=== PATIENT | female | born 1965 ===

== ENCOUNTER → 2020-11-12 08:40 | Outpatient (BNVA) | payer OTHER, SELFPAY | PROVIDERS: PCP Internal Medicine; Visit Provider Dietitian, Registered | DX: E66.9 Obesity, unspecified (principal) | CPT/HCPCS: 97802 ==

== ENCOUNTER 2022-01-21 11:56 | Outpatient (REF) | payer MEDICAID, SELFPAY ==
--- NOTE | ~2022-01-21 | MM_ITS ---
EXAMINATION: MM SCREENING DIGITAL BREAST TOMOSYNTHESIS, BILATERAL CLINICAL INFORMATION: Screening. Asymptomatic. The lifetime risk of breast cancer based on the Tyrer-Cuzick Model is 6%. COMPARISON: Outside mammography: 08/23/2017, 07/28/2016 ([place]). TECHNIQUE: Digital breast tomosynthesis is performed in both the craniocaudal and mediolateral oblique views along with computer-aided detection (CAD). Synthesized 2D images are generated from the tomosynthesis. FINDINGS: There are scattered areas of fibroglandular density (ACR BI-RADS breast composition Category b). Breast tissue composition borders on predominantly fatty. Background stromal markings are stable. There is no developing density or interval mass or architectural abnormality. No abnormal calcifications. The axilla and skin contours are unremarkable. MM/MM tomosynthesis screening BI IMPRESSION: No mammographic evidence of malignancy. ASSESSMENT: BI-RADS 1: Negative RECOMMENDATION: Routine annual mammography screening. This patient's information was entered into a reminder system with a target due date for their next mammogram.
== END 2022-01-21 11:57 | disposition home or self-care (01) ==
LOC: HO.MAMMO 11:56
PROVIDERS: PCP Family Medicine; Visit Provider Family Medicine
DX: Z12.31 Encounter for screening mammogram for malignant neoplasm of breast (principal)
CPT/HCPCS: 77063; 77067

== ENCOUNTER 2023-05-25 08:29 | Outpatient (REF) | payer MEDICAID, SELFPAY ==
[2023-05-25 14:34] LABS: Cholesterol 148 mg/dL (<200); HDL Cholesterol 40 mg/dL (>40); LDL Cholesterol Calculated 56 mg/dL (<100); Triglycerides 261 mg/dL (<150)
== END 2023-05-25 08:30 | disposition home or self-care (01) ==
LOC: HO.CHCLDS 08:29
PROVIDERS: Visit Provider Family Medicine
DX: E78.1 Pure hyperglyceridemia (principal)
CPT/HCPCS: 36415; 80061

== ENCOUNTER 2023-09-08 17:34 | Outpatient (REF) | payer MEDICAID, SELFPAY | END 2023-09-08 17:35 | disposition home or self-care (01) | LOC: HO.HHCLNP 17:34 | PROVIDERS: Visit Provider Emergency Medicine | DX: R30.9 Painful micturition, unspecified (principal) | CPT/HCPCS: 87086 ==

== ENCOUNTER 2023-09-22 10:05 | Outpatient (REF) | payer MEDICAID, SELFPAY ==
[2023-09-22 14:30] LABS: MANUAL DIFF FLAG NO
[2023-09-22 14:36] LABS: Basophils Percent Auto 0.6 % (0-2); Eosinophils Absolute Auto 0.1 X10*3/uL (0.0-0.4); Eosinophils Percent Auto 1.7 % (0-4); Hematocrit 38.2 % (37.0-47.0); Hemoglobin 12.5 g/dl (12.0-16.0); Imm Gran Abs Auto 0.01 X10*3/uL (0.00-0.03); Imm Gran Pct Auto 0.2 % (0.0-0.4); Lymphocytes Absolute Auto 2.6 X10*3/uL (1.2-4.9); Lymphocytes Percent Auto 55.1 % (20-40); Mean Corpuscular HGB Conc 32.7 g/dl (31.0-35.0); Mean Corpuscular Hemoglobin 30.5 pg (27.0-33.0); Mean Corpuscular Volume 93.2 fL (80.0-98.0); Mean Platelet Volume 9.9 fL (9.4-12.3); Monocytes Absolute Auto 0.2 X10*3/uL (0.1-1.2); Monocytes Percent Auto 5.2 % (2-11); Neutrophils Absolute Auto 1.7 x10*3/uL (2.0-8.3); Neutrophils Percent Auto 37.2 % (45-73); Platelet Count 281 X10*3/uL (160-400); Red Cell Distribution Width 12.5 % (11.0-16.0); White Blood Count 4.6 X10*3/uL (4.8-10.8)
[2023-09-22 14:58] LABS: Alanine Aminotransferase 31 U/L (0-31); Albumin Level 4.1 g/dL (3.5-5.0); Alkaline Phosphatase 80 U/L (39-117); Anion Gap 9 (12-20); Aspartate Amino Transferase 30 U/L (5-31); Bilirubin Total 0.2 mg/dL (0.0-1.0); Blood Urea Nitrogen 8 mg/dL (9-16); Calcium 9.3 mg/dL (8.4-10.2); Carbon Dioxide 25 mmol/L (22-29); Chloride 111 mmol/L (96-108); Cholesterol 119 mg/dL (<200); Estimated Glomerular Filt Rate > 60; Glucose Random 96 mg/dL (60-115); HDL Cholesterol 45 mg/dL (>40); LDL Cholesterol Calculated 54 mg/dL (<100); Potassium 3.6 mmol/L (3.3-5.1); Sodium 141 mmol/L (135-145); Total Protein 6.8 g/dL (6.5-8.0); Triglycerides 103 mg/dL (<150)
[2023-09-22 15:17] LABS: TSH reflex Free T4 2.71 uIU/mL (0.32-4.0); Vitamin D 25-OH Total 27.7 ng/mL (>30)
[2023-09-22 15:26] LABS: Folate 8.6 ng/mL (> or = 4.0); Vitamin B12 345 pg/mL (200-900)
[2023-09-26 15:33] LABS: Vitamin B6 13.8 ng/mL (2.1-21.7)
== END 2023-09-22 10:06 | disposition home or self-care (01) ==
LOC: HO.CHCLDS 10:05
PROVIDERS: Visit Provider Family Medicine
DX: R20.0 Anesthesia of skin (principal); R20.2 Paresthesia of skin; E78.49 Other hyperlipidemia
CPT/HCPCS: 36415; 80053; 80061; 82306; 82607; 82746; 84207; 84443; 85025

== ENCOUNTER 2023-09-28 07:41 | Outpatient (REF) | payer MEDICAID, SELFPAY ==
--- NOTE | 2023-09-28 07:48 | EMG_ITS ---
Bilateral tibial and peroneal motor studies were performed. Bilateral superficial peroneal, sural, and medial and lateral plantar sensory studies were performed and tibial H reflexes were obtained. Paraspinal muscles were tested with a needle. IMPRESSION: 1. 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 2. Underlying mild axonal sensory motor peripheral neuropathy. MD PILY Aleman/FEMI / [id number]
== END 2023-09-28 07:42 | disposition home or self-care (01) ==
LOC: HO.NEURO 07:41
PROVIDERS: PCP Family Medicine; Visit Provider Family Medicine
DX: R20.0 Anesthesia of skin (principal); R20.2 Paresthesia of skin
CPT/HCPCS: 95886; 95913

== ENCOUNTER 2024-02-16 08:51 | Outpatient (AMB) | payer MEDICAID, SELFPAY ==
--- NOTE | 2024-02-16 09:01 | MHC.OFFVIS ---
Vital Signs 02/16/24 09:03 Height 4 ft 10 in Weight 128 lb BMI 26.7 BP 109/69 Blood Pressure Location Lt brachial Position Sitting Pulse 70 Pulse Source Pulse Oximeter Pulse Oximetry (%) 99 Oxygen Delivery Method Room Air Intake Visit Reasons: Protrusion of intervertebral disc of lumbar Allergies NSAIDS (Non-Steroidal Anti-Inflamma Adverse Reaction (Mild, Verified 02/16/24 09:13) Unknown Sulfa (Sulfonamide Antibiotics) Adverse Reaction (Mild, Verified 02/16/24 09:13) rash sulfacetamide Adverse Reaction (Mild, Verified 02/16/24 09:13) Unknown sulfadiazine Adverse Reaction (Mild, Verified 02/16/24 09:13) Unknown Medication List - Last Reconciled 02/16/24 by Ginny Ha acetaminophen ER (Pain Relief (acetaminophen)) 650 mg PO Q8H baclofen 10 mg PO TID buspirone 15 mg PO BID glfgoaetfk-iupmwjtfatfdg-lufu 50-325-40 mg 2 caps PO Q4-6H PRN cetirizine (All Day Allergy (cetirizine)) 10 mg PO DAILY PRN cholecalciferol (vitamin D3) 50 mcg PO DAILY diphenhydramine HCl (Allergy (diphenhydramine)) 25 mg PO BEDTIME PRN docusate sodium 100 mg PO BID ezetimibe 10 mg PO DAILY fluticasone propionate 50 mcg/actuation (Allergy Relief (fluticasone)) 1 spray intranasal BID gabapentin 300 mg PO BEDTIME hydroxyzine HCl 50 mg PO BEDTIME lidocaine 5% 1 patch topical DAILY meclizine 25 mg PO BID PRN mirabegron ER (Myrbetriq) 50 mg PO DAILY omeprazole 20 mg PO DAILY polyethylene glycol 3350 17 grams PO DAILY rosuvastatin 40 mg PO DAILY rotigotine (Neupro) 2 mg transdermal DAILY semaglutide (weight loss) (Wegovy) 2.4 mg subcut QWEEK sennosides (senna) 8.6 mg PO DAILY sertraline 100 mg PO DAILY sertraline 25 mg PO DAILY sumatriptan succinate 100 mg PO Q2-4H PRN topiramate XR 100 mg PO DAILY trazodone 100 mg PO DAILY verapamil 40 mg PO DAILY HPI Comments Details: Celia is a very pleasant 59-year-old female who presents the office today for evaluation management of her chronic lower back pain. Patient reports that for approximately 7 years she has been suffering with midline lower back pain without radiation down either lower extremity With a past one-week she has developed acute pain over the right PSIS with radiation into the thigh She has been taking gabapentin, baclofen and using lidocaine patches without improvement of her pain Previously underwent injections to her lower back for years ago, these provided some relief for a short time. 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 Most recent MRI was 2020, results are not available for review. States she was told there is a protrusion of disc at L5 Denies recent attempts at physical therapy Denies red flag symptoms including new loss of bowel, bladder or saddle anesthesia She reports worse pain is the right lower back pain over PSIS, worse with walking, standing, sitting Pain today is rated as 8/10, constant In terms of muscle damage condition is described as stabbing, aching Pain is negatively impacting patient's enjoyment of life, general activity, sleep, ability to care for self inability function normally. Denies current use of anticoagulants Denies implantable devices, pacemaker defibrillator Denies nicotine, tobacco, alcohol or illicit substance use Review of Systems Const All systems reviewed & are unremarkable except as noted in HPI and below Physical Exam Vital Signs: Last Vital Signs Pulse 70 02/16/24 09:03 BP 109/69 02/16/24 09:03 Pulse Ox 99 02/16/24 09:03 Oxygen Delivery Method Room Air 02/16/24 09:03 BMI result Body Mass Index 26.7 General: awake, alert, oriented. Answers questions appropriately. Fully engaged in examination. Skin: warm, dry, intact HEENT: Normocephalic. Hearing intact. Cardiac: External chest normal in appearance. Respiratory: No cough, audible wheezing or stridor. Abdomen: without gross distension. MS: No obvious swelling or deformities. Able to stand on bilateral tiptoes and bilateral heels.? Able to transition from sit to stand unassisted. Ambulates with bilaterally normal heel strike and toe off Bilateral lower extremity strength 5/5 Tenderness over right PSIS Tenderness over midline lumbar vertebrae and lumbar paraspinal muscles SLR negative bilaterally [place] positive on the right Thigh thrust positive on the right SI compression positive on the right Facet loading positive Negative footdrop, negative clonus Neurological: Oriented to person, place, time and situation. Thought process intact. Ambulates with the use of a cane. Psychiatric: Appropriate mood and affect. Good judgment and insight. Assessment & Plan Assessment & Plan (1) Sacroiliac joint dysfunction of right side: Code(s): M53.3 - Sacrococcygeal disorders, not elsewhere classified Category: Medical (2) Lumbar spondylosis: Code(s): M47.816 - Spondylosis without myelopathy or radiculopathy, lumbar region Category: Medical Plan Celia is a very pleasant 59-year-old female who presented to the office today for evaluation management of her chronic lower back pain History, physical exam and provocative testing consistent with right sacroiliac joint dysfunction and axial lumbar back pain X-ray sacroiliac joint ordered for evaluation X-ray lumbar spine ordered for evaluation Order placed for PT eval and treat Patient fitted for SIJ belt, advised on use. Discontinue baclofen. New Rx for methocarbamol 500 mg p.o. t.i.d. as needed. Patient advised on cautions for use All questions and concerns were answered, patient agrees with the plan. Follow up after PT, sooner if needed Orders: Orders XR sacroiliac joint min 3V Today M53.3 - Sacrococcygeal disorders, not elsewhere classified PT Evaluation and Treatment Today M47.816 - Spondylosis without myelopathy or radiculopathy, lumbar region, M53.3 - Sacrococcygeal disorders, not elsewhere classified XR lumbar spine 4V min Today M47.816 - Spondylosis without myelopathy or radiculopathy, lumbar region Medications: New methocarbamol Discontinue use of baclofen No driving while taking this medication. 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
[2024-02-16 09:03] VITALS: BP 109/69; PULSE 70; O2SAT 99; BMI 26.7
== END 2024-02-16 09:40 | disposition home or self-care (01) ==
PROVIDERS: PCP Family Medicine; Referring Provider Pediatrics; Visit Provider Registered Nurse Emergency
DX: M53.3 Sacrococcygeal disorders, not elsewhere classified (principal); M47.816 Spondylosis without myelopathy or radiculopathy, lumbar region
CPT/HCPCS: 99204

== ENCOUNTER 2024-02-16 08:51 | Outpatient (REF) | payer MEDICAID, SELFPAY ==
--- NOTE | ~2024-02-16 | XR_ITS ---
EXAMINATION: XR LUMBOSACRAL SPINE WITH OBLIQUES CLINICAL INFORMATION: Lumbar radiculopathy. COMPARISON: None available. TECHNIQUE: AP, both oblique, and lateral views of the lumbar spine. Lateral view of the lumbosacral junction. FINDINGS: There are 5 nonrib-bearing lumbar vertebral bodies. There is slight leftward curvature of the lumbar spine. Sagittal alignment is maintained. Vertebral body heights are preserved. Mild intervertebral disc narrowing at L5-S1. No spondylolysis. Facet hypertrophy at L5-S1. Sacroiliac joints are intact. XR/XR lumbar spine 4V min IMPRESSION: Mild degenerative disc disease at L5-S1.
== END 2024-02-16 08:52 | disposition home or self-care (01) ==
LOC: HO.XRAY 08:51
PROVIDERS: PCP Family Medicine; Visit Provider Registered Nurse Emergency
DX: M47.816 Spondylosis without myelopathy or radiculopathy, lumbar region (principal)
CPT/HCPCS: 72110; 99212

== ENCOUNTER 2024-03-06 11:51 | Emergency (ER) | payer MEDICAID, SELFPAY ==
[2024-03-06 11:53] VITALS: BP 108/76; PULSE 83; RESP 20; TEMP 36.3; O2SAT 99; BMI 26.7
--- NOTE | 2024-03-06 11:53 | ED_ITS ---
HPI - Back Pain/Injury General Chief Complaint: Back Pain/Injury Stated Complaint: back pain Time Seen by Provider: 03/06/24 12:04 Source: patient, family (), RN notes reviewed and old records reviewed Mode of arrival: ambulatory Limitations: no limitations History of Present Illness ED Provider: ALON TINOCO PA-C HPI Narrative: 59 year old female presents to the ED today for evaluation of acute on chronic low back pain x2 weeks. Reports pain to her mid lumbar back with radiation into bilateral thighs. Pain is exacerbated with sitting and ambulation. She states she has been unable to find a comfortable position. Deniews new trauma or injury. She ambulates with cane at baseline. Patient reports chronic back pain x7 years, worsening acutely over the last 2 weeks. She had an appointment with pain management provider on 02/16/24 who diagnosed her with right SI joint dysfunction and axial lumbar back pain. XRs were ordered and taken however she has yet to receive these results. She was discharged with SIJ belt, physical therapy referral, was advised to discontinued her baclofen prescription, and was started on methocarbamol 500mg PO TID which she has been taking without much relief. She last took this medication around 10-11 oclock this morning. She tells me she had her first physical therapy appointment yesterday. She denies bowel/ bladder incontinence or retention, saddle anesthesia, numbness/tingling/weakness of the lower extremities, dysuria, hematuria, fever/chills. Denies history of spinal surgery. Denies hx of IV drug use. Related Data Home Medications ?Medication ?Instructions ?Recorded ?Confirmed acetaminophen 650 mg 650 mg PO Q8H 02/16/24 02/16/24 tablet,extended release (Pain Relief (acetaminophen)) buspirone 15 mg tablet 15 mg PO BID 02/16/24 02/16/24 cnwygtkogd-pfcfryyayjuhm-htgikrst 2 cap PO Q4-6H PRN 02/16/24 02/16/24 50 mg-325 mg-40 mg capsule cetirizine 10 mg tablet (All Day 10 mg PO DAILY PRN 02/16/24 02/16/24 Allergy (cetirizine)) cholecalciferol (vitamin D3) 50 50 mcg PO DAILY 02/16/24 02/16/24 mcg (2,000 unit) tablet diphenhydramine HCl 25 mg capsule 25 mg PO BEDTIME PRN 02/16/24 02/16/24 (Allergy (diphenhydramine)) docusate sodium 100 mg capsule 100 mg PO BID 02/16/24 02/16/24 ezetimibe 10 mg tablet 10 mg PO DAILY 02/16/24 02/16/24 fluticasone propionate 50 1 spray intranasal BID 02/16/24 02/16/24 mcg/actuation nasal spray,suspension (Allergy Relief (fluticasone)) gabapentin 300 mg capsule 300 mg PO BEDTIME 02/16/24 02/16/24 hydroxyzine HCl 50 mg tablet 50 mg PO BEDTIME 02/16/24 02/16/24 lidocaine 5 % topical patch 1 patch topical DAILY 02/16/24 02/16/24 meclizine 25 mg tablet 25 mg PO BID PRN 02/16/24 02/16/24 mirabegron 50 mg tablet,extended 50 mg PO DAILY 02/16/24 02/16/24 release 24 hr (Myrbetriq) omeprazole 20 mg capsule,delayed 20 mg PO DAILY 02/16/24 02/16/24 release polyethylene glycol 3350 17 17 g PO DAILY 02/16/24 02/16/24 gram/dose oral powder rosuvastatin 40 mg tablet 40 mg PO DAILY 02/16/24 02/16/24 rotigotine 2 mg/24 hour 2 mg transdermal DAILY 02/16/24 02/16/24 transdermal 24 hour patch (Neupro) semaglutide (weight loss) 2.4 2.4 mg subcut QWEEK 02/16/24 02/16/24 mg/0.75 mL subcutaneous pen injector (Radha) sennosides 8.6 mg capsule (senna) 8.6 mg PO DAILY 02/16/24 02/16/24 sertraline 100 mg tablet 100 mg PO DAILY 02/16/24 02/16/24 sertraline 25 mg tablet 25 mg PO DAILY 02/16/24 02/16/24 sumatriptan succinate 100 mg tablet 100 mg PO Q2-4H PRN 02/16/24 02/16/24 topiramate 100 mg capsule,extended 100 mg PO DAILY 02/16/24 02/16/24 release 24 hr trazodone 100 mg tablet 100 mg PO DAILY 02/16/24 02/16/24 verapamil 40 mg tablet 40 mg PO DAILY 02/16/24 02/16/24 Previous Rx's ?Medication ?Instructions ?Recorded methocarbamol 500 mg tablet 500 mg PO TID PRN muscle spasm #90 02/16/24 tabs morphine 15 mg immediate release 15 mg PO Q6H PRN pain (scale score 03/06/24 tablet 4-6) #8 tabs Allergies Allergy/AdvReac Type Severity Reaction Status Date / Time NSAIDS (Non-Steroidal AdvReac Mild Unknown Verified 03/06/24 11:56 Anti-Inflamma Sulfa (Sulfonamide AdvReac Mild rash Verified 03/06/24 11:56 Antibiotics) sulfacetamide AdvReac Mild Unknown Verified 03/06/24 11:56 sulfadiazine AdvReac Mild Unknown Verified 03/06/24 11:56 Review of Systems Review of Systems: Constitutional: No fever, chills, fatigue, night sweats, weight changes ENT/Mouth: No ear pain, hearing loss, nasal congestion, sinus pain, rhinorrhea, sore throat Eyes: No eye pain, swelling, redness, vision changes, discharge Cardio: No chest pain, palpitations, GAONA, orthopnea, peripheral edema Pulm: No SOB, cough, sputum, wheezing, dyspnea, hemoptysis GI: No nausea, vomiting, hematemesis, abdominal pain, diarrhea, constipation, hematochezia, melena : No irregular bleeding, dysuria, frequency, urgency, hesitancy, hematuria, flank pain, urinary flow changes, urinary incontinence or retention MSK: No neck pain, joint pain, myalgias, +back pain Skin: No lesions, rashes Neuro: No weakness, numbness, paresthesias, LOC, dizziness, headache Psych: No anxiety/panic, depression, SI/HI, AH/VH All other systems reviewed and are negative. [facility] Past Medical History Attestation statement: The following information was validated with the patient. Source: old records reviewed and nursing notes reviewed Social History Social History Advance Directives: No Advance Directives Information Provided: No Physical Exam Vital Signs: Vital Signs: Last Vital Signs Temp 97.3 F 03/06/24 11:53 Pulse 83 03/06/24 11:53 Resp 20 03/06/24 11:53 BP 108/76 03/06/24 11:53 Pulse Ox 99 03/06/24 11:53 O2 Del Method Room Air 03/06/24 11:53 BMI result Body Mass Index 26.7 Vital signs stable, afebrile Const: General: cooperative, healthy appearing, comfortable, no acute distress, alert, awake and Physically active Orientation/consciousness: patient oriented x3 HEENT: Head: Yes normal to inspection, Yes normocephalic and Yes atraumatic Eyes: General: appearance normal, both eyes and all related structures Pupils: Equal, round and reactive pupils present EOM: EOMs intact bilaterally Neck: Other: + no cervical midline spinous tenderness or step-off deformity. Neck: Yes normal visual inspection, Yes full ROM and Yes no meningeal signs Resp: Effort & Inspection: normal respiratory effort Auscultation: clear to auscultation bilaterally Cardio: Rate: regular rate Rhythm: regular rhythm GI: Inspection: Yes normal to inspection Palpation (GI): Soft to palpation and nontender : General: Yes no CVA tenderness Back/Spine/Pelvis: Other: + midline lumbar spinous tenderness with out palpable deformity, mass, fluctuance or crepitus. No step off deformity. Minimal left lumbar paraspinal muscle tenderness. No overlying cellulitic changes, ecchymoses. Back: no CVA tenderness Neuro: Other: Strength 5/5 intact throughout.? No saddle anesthesia.? Sensation intact to light touch.? Neurovascular intact distally.? 2+ patellar DTRs intact bilaterally. Ambulating with steady gait assisted by cane. General: patient oriented x3, gait normal and no meningeal signs Cranial nerves: Yes Equal, round and reactive pupils present Gait exam (Neuro): Normal gait present Course Course Course Narrative: This is a Rapid Medical Exam performed in triage by Nicole Reid PA-C. Full HPI, ROS and PE to be performed by primary ED provider. 59 year-old F w/ PMHx presenting to the ED c/o low back pain x1 month. Saw pain management on 02/16/24 for this back pain however states meds are not working. denies incontinence/retention , fever PE: ambulating w/steady gait. had Lumbar XR on 02/15 which have not yet been read by radiologist Plan: Pain management Reevaluation(s) Reevaluation #1: 9238-- xr lumbar spine showing degenerative disc disease at L5-S1. will discharg e patient with PO morphine as needed. advised to continue follow up w/ pain management and physical therapy. Patient has remained stable throughout ED visit today. Ambulating with steady gait. Discussed worrisome signs and symptoms and when to return to the ED. All questions answered at this time. Patient is agreeable with disposition and stable for discharge. Medications Administered Discontinued Medications Generic Name Dose Route Start Last Admin Trade Name Elver PRN Reason Stop Dose Admin Morphine Sulfate 15 mg 03/06/24 12:30 03/06/24 12:37 Morphine Sulfate Immed Release 15 Mg Tablet PO 03/06/24 12:31 15 mg ONCE ONE Administration Medical Decision Making Medical Decision Making MDM Narrative: 59 year old female presents to the ED today for evaluation of acute on chronic low back pain x2 weeks. Vital signs stable. Afebrile. She is nontoxic-appearing and in no acute distress. Sitting on the exam bed comfortably. On exam, there is midline lumbar spinous tenderness without palpable deformity, mass, f luctuance or crepitus. No step off deformity. Minimal left lumbar paraspinal muscle tenderness. No overlying cellulitic changes, ecchymoses. Sensation intact to light touch throughout. Strength 5/5 intact throughout. 2+ patellar DTRs intact bilaterally. Ambulating with steady gait assisted by cane. Differential diagnosis includes lumbar sprain/strain, sciatica, contusion, lumbar radiculopathy. Unlikely epidural abscess, cauda equina, Guillain-[place], cord compression. Will reach out to [facility] for imaging reads. Plan for pain control and re-evaluation. Differential Diagnosis Differential Diagnoses: The differential diagnosis associated with the presentation includes as above. Admission/Observation Not indicated. Independent Interpretation I performed an independent interpretation of an: Plain X-Ray Interpretation: XR lumbar spine obtained on 02/16/24 without acute fracture, agree with radiologist's interpretation. Radiology Impression Discussion of test interpretation with radiology: I have reviewed the radiologist's reading. Radiologist Impression: EXAMINATION: XR LUMBOSACRAL SPINE WITH OBLIQUES CLINICAL INFORMATION: Lumbar radiculopathy. COMPARISON: None available. TECHNIQUE: AP, both oblique, and lateral views of the lumbar spine. Lateral view of the lumbosacral junction. FINDINGS: There are 5 nonrib-bearing lumbar vertebral bodies. There is slight leftward curvature of the lumbar spine. Sagittal alignment is maintained. Vertebral body heights are preserved. Mild intervertebral disc narrowing at L5-S1. No spondylolysis. Facet hypertrophy at L5-S1. Sacroiliac joints are intact. XR/XR lumbar spine 4V min IMPRESSION: Mild degenerative disc disease at L5-S1. Independent Historian Clinical information obtained from an independent historian. History obtained f rom or confirmed by: Spouse () External Record Review External record reviewed: Inpatient record Prescription Management I considered prescription management with: Pain Medication (Morphine) Social Determinants Patient?s care significantly limited by Social Determinants of Health including: Other Social Determinant of Health Critical Care Time Critical Care Time Critical Care Time: No Discharge Plan Discharge Clinical Impression: Lumbar spondylosis Patient Disposition: Home, Self-Care Instructions: Lower Back Exercises (ED) Additional Instructions: The xray of your lumbar spine taken on 02/16/24 shows degenerative disc disease from L5-S1. No acute fracture. Morphine has been sent to your pharmacy for you to take as needed for the next couple of days. Please continue following up with pain management and physical therapy as you require more definitive treatment to treat the underlying cause. Return with new or worsening symptoms In the case of an emergency call 911. Prescriptions: New morphine 15 mg tablet 15 mg PO Q6H PRN (Reason: pain (scale score 4-6)) Qty: 8 0RF Rx Instructions: Partial Fill upon patient request. No Action gabapentin 300 mg capsule 300 mg PO BEDTIME docusate sodium 100 mg capsule 100 mg PO BID acetaminophen [Pain Relief (acetaminophen)] 650 mg tablet extended release 650 mg PO Q8H cetirizine [All Day Allergy (cetirizine)] 10 mg tablet 10 mg PO DAILY PRN fluticasone propionate [Allergy Relief (fluticasone)] 50 mcg/actuation spray,suspension 1 spray intranasal BID Rx Instructions: administer into each nostril rosuvastatin 40 mg tablet 40 mg PO DAILY hydroxyzine HCl 50 mg tablet 50 mg PO BEDTIME ezetimibe 10 mg tablet 10 mg PO DAILY nimaxplqxy-xcjneuqpzhagx-mxdj 50-325-40 mg capsule 2 cap PO Q4-6H PRN Rx Instructions: do not exceed 6 tabs per 24 hrs polyethylene glycol 3350 17 gram/dose powder 17 g PO DAILY meclizine 25 mg tablet 25 mg PO BID PRN sumatriptan succinate 100 mg tablet 100 mg PO Q2-4H PRN Rx Instructions: do not exceed 2 doses per 24 hrs sertraline 100 mg tablet 100 mg PO DAILY Neupro 2 mg/24 hour patch 24 hour 2 mg transdermal DAILY senna 8.6 mg capsule 8.6 mg PO DAILY omeprazole 20 mg capsule,delayed release(DR/EC) 20 mg PO DAILY topiramate 100 mg capsule,extended release 24hr 100 mg PO DAILY verapamil 40 mg tablet 40 mg PO DAILY buspirone 15 mg tablet 15 mg PO BID sertraline 25 mg tablet 25 mg PO DAILY diphenhydramine HCl [Allergy (diphenhydramine)] 25 mg capsule 25 mg PO BEDTIME PRN trazodone 100 mg tablet 100 mg PO DAILY mirabegron [Myrbetriq] 50 mg tablet extended release 24 hr 50 mg PO DAILY cholecalciferol (vitamin D3) 50 mcg (2,000 unit) tablet 50 mcg PO DAILY Wegovy 2.4 mg/0.75 mL pen injector 2.4 mg subcut QWEEK lidocaine 5 % adhesive patch,medicated 1 patch topical DAILY methocarbamol 500 mg tablet 500 mg PO TID PRN (Reason: muscle spasm) Qty: 90 1RF Rx Instructions: Discontinue use of baclofen No driving while taking this medication. 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
[2024-03-06] MEDS: Morphine Sulfate Immed Release 15 MG TABLET PO (12:37)
[2024-03-06 15:11] VITALS: BP 103/60; PULSE 71; RESP 13; TEMP 36.6
[2024-03-06 15:17] VITALS: BP 103/60; PULSE 71; RESP 13; TEMP 36.6
== END 2024-03-06 15:17 | disposition home or self-care (01) ==
PROVIDERS: Emergency Provider Emergency Medicine; PCP Family Medicine
DX: M47.816 Spondylosis without myelopathy or radiculopathy, lumbar region (principal); Z79.899 Other long term (current) drug therapy
CPT/HCPCS: 99283; 99284

== ENCOUNTER 2024-03-19 08:47 | Outpatient (AMB) | payer MEDICAID, SELFPAY ==
[2024-03-19 09:03] VITALS: BP 114/65; PULSE 71; O2SAT 98; BMI 26.7
--- NOTE | 2024-03-19 09:03 | A.OFFVIS_ITS ---
Vital Signs 03/19/24 09:03 Height 4 ft 10 in Weight 128 lb BMI 26.7 BP 114/65 Blood Pressure Location Lt brachial Position Sitting Pulse 71 Pulse Source Pulse Oximeter Pulse Oximetry (%) 98 Oxygen Delivery Method Room Air Intake Visit Reasons: Back pain increasing Allergies NSAIDS (Non-Steroidal Anti-Inflamma Adverse Reaction (Mild, Verified 03/19/24 09:04) Unknown Sulfa (Sulfonamide Antibiotics) Adverse Reaction (Mild, Verified 03/19/24 09:04) rash sulfacetamide Adverse Reaction (Mild, Verified 03/19/24 09:04) Unknown sulfadiazine Adverse Reaction (Mild, Verified 03/19/24 09:04) Unknown Medication List - Last Reconciled 03/19/24 by Ginny Ha acetaminophen ER (Pain Relief (acetaminophen)) 650 mg PO Q8H buspirone 15 mg PO BID ijzgdqdzax-xzgtrjdzkshfj-ksbs 50-325-40 mg 2 caps PO Q4-6H PRN cetirizine (All Day Allergy (cetirizine)) 10 mg PO DAILY PRN cholecalciferol (vitamin D3) 50 mcg PO DAILY diphenhydramine HCl (Allergy (diphenhydramine)) 25 mg PO BEDTIME PRN docusate sodium 100 mg PO BID ezetimibe 10 mg PO DAILY fluticasone propionate 50 mcg/actuation (Allergy Relief (fluticasone)) 1 spray intranasal BID gabapentin 300 mg PO BEDTIME hydroxyzine HCl 50 mg PO BEDTIME lidocaine 5% 1 patch topical DAILY meclizine 25 mg PO BID PRN methocarbamol 500 mg PO TID PRN mirabegron ER (Myrbetriq) 50 mg PO DAILY morphine 15 mg PO Q6H PRN omeprazole 20 mg PO DAILY polyethylene glycol 3350 17 grams PO DAILY rosuvastatin 40 mg PO DAILY rotigotine (Neupro) 2 mg transdermal DAILY semaglutide (weight loss) (Wegovy) 2.4 mg subcut QWEEK sennosides (senna) 8.6 mg PO DAILY sertraline 100 mg PO DAILY sertraline 25 mg PO DAILY sumatriptan succinate 100 mg PO Q2-4H PRN topiramate XR 100 mg PO DAILY tramadol 50 mg PO Q6H PRN trazodone 100 mg PO DAILY verapamil 40 mg PO DAILY HPI Comments Details: Patient presented to the office today, accompanied by her daughter, for follow- up lower back pain Recent x-ray reviewed with patient and her daughter, results as per below. She was recently evaluated in the emergency room for worsening lower back pain. They discharged her with oral morphine, this has been discontinued. Her primary care provider then prescribed her tramadol. She has been taking this without improvement of her pain. Currently attending physical therapy, she finds that this worsens her pain. Using the sacroiliac joint belt with minimal improvement. Today would like to focus on her axial back pain and wait to treat sacroiliac joint pain. Denies red flag symptoms including new loss of bowel, bladder or saddle anesthesia. Prior: Celia is a very pleasant 59-year-old female who presents the office today for evaluation management of her chronic lower back pain. Patient reports that for approximately 7 years she has been suffering with midline lower back pain without radiation down either lower extremity With a past one-week she has developed acute pain over the right PSIS with radiation into the thigh She has been taking gabapentin, baclofen and using lidocaine patches without improvement of her pain Previously underwent injections to her lower back for years ago, these provided some relief for a short time. 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 Most recent MRI was 2020, results are not available for review. States she was told there is a protrusion of disc at L5 Denies recent attempts at physical therapy Denies red flag symptoms including new loss of bowel, bladder or saddle anesthesia She reports worse pain is the right lower back pain over PSIS, worse with walking, standing, sitting Pain today is rated as 8/10, constant In terms of muscle damage condition is described as stabbing, aching Pain is negatively impacting patient's enjoyment of life, general activity, sleep, ability to care for self inability function normally. Denies current use of anticoagulants Denies implantable devices, pacemaker defibrillator Denies nicotine, tobacco, alcohol or illicit substance use Review of Systems Const All systems reviewed & are unremarkable except as noted in HPI and below Physical Exam Vital Signs: Last Vital Signs Pulse 71 03/19/24 09:03 BP 114/65 03/19/24 09:03 Pulse Ox 98 03/19/24 09:03 Oxygen Delivery Method Room Air 03/19/24 09:03 BMI result Body Mass Index 26.7 General: awake, alert, oriented. Answers questions appropriately. Fully engaged in examination. Skin: warm, dry, intact HEENT: Normocephalic. Hearing intact. Cardiac: External chest normal in appearance. Respiratory: No cough, audible wheezing or stridor. Abdomen: without gross distension. MS: No obvious swelling or deformities. Able to stand on bilateral tiptoes and bilateral heels.? Able to transition from sit to stand unassisted. Ambulates with bilaterally normal heel strike and toe off Bilateral lower extremity strength 5/5 Tenderness over midline lumbar vertebrae and lumbar paraspinal muscles SLR negative bilaterally Facet loading positive Negative footdrop, negative clonus Neurological: Oriented to person, place, time and situation. Thought process intact. Psychiatric: Appropriate mood and affect. Good judgment and insight. Results Reviewed Results Reviewed: 02/16/2024: XR/XR lumbar spine 4V min FINDINGS: There are 5 nonrib-bearing lumbar vertebral bodies. There is slight leftward curvature of the lumbar spine. Sagittal alignment is maintained. Vertebral body heights are preserved. Mild intervertebral disc narrowing at L5-S1. No spondylolysis. Facet hypertrophy at L5-S1. Sacroiliac joints are intact. IMPRESSION: Mild degenerative disc disease at L5-S1. Assessment & Plan Assessment & Plan (1) Sacroiliac joint dysfunction of right side: Code(s): M53.3 - Sacrococcygeal disorders, not elsewhere classified Category: Medical (2) Lumbar spondylosis: Code(s): M47.816 - Spondylosis without myelopathy or radiculopathy, lumbar region Category: Medical Plan Celia is a very pleasant 59-year-old female who presented to the office today for follow-up lower back pain History, physical exam and provocative testing consistent with right sacroiliac joint dysfunction and axial lumbar back pain. Today she would like to focus on her axial back pain. Patient has exhausted conservative therapy including PT, muscle relaxers, heat, ice. She is unable to take nonsteroidal anti-inflammatory medications due to history of Duane Lucien syndrome Will schedule for fluoroscopy guided bilateral diagnostic L3-L4 DR L5 medial branch blocks with local anesthetic. Continue with methocarbamol 500 mg p.o. t.i.d. as needed. Patient advised on cautions for use All questions and concerns were answered, patient agrees with the plan. Follow up after injection, sooner if needed Coding Level of Care Code Est Pt Level 3 (02518) Diagnoses Sacroiliac joint dysfunction of right side M53.3 Lumbar spondylosis M47.816
== END 2024-03-19 09:49 | disposition home or self-care (01) ==
PROVIDERS: PCP Family Medicine; Visit Provider Registered Nurse Emergency
DX: M53.3 Sacrococcygeal disorders, not elsewhere classified (principal); M47.816 Spondylosis without myelopathy or radiculopathy, lumbar region
CPT/HCPCS: 99213

== ENCOUNTER → 2024-03-19 08:47 | Outpatient (BNVA) | payer MEDICAID, SELFPAY | PROVIDERS: PCP Family Medicine; Visit Provider Registered Nurse Emergency | DX: M47.816 Spondylosis without myelopathy or radiculopathy, lumbar region (principal) | CPT/HCPCS: 99212 ==

== ENCOUNTER 2024-03-25 11:00 | Outpatient (RCR) | payer MEDICAID, SELFPAY ==
--- NOTE | 2024-03-05 10:42 | MHC.PT.EP ---
[facility] [place] Office [place] Office [place] Office [address] David Oliva [address] [phone] F: [phone] F: [phone] F: [phone] F: [phone] Physical Therapy Plan of Care Date of Evaluation: 03/05/24 Date of Surgery: n/a Diagnosis: R SI joint dysfunction Assessment: Patient is a 59 year old female presenting to PT with complaints of pain in her low back. Pt reports onset of pain began a few years ago due to insidious onset. She presents today with impairments in pain, lumbar ROM, core strength, hip strength, tenderness to palpation. Pt's current occupation is none, with baseline physical activities including ADLs. 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 Clinical presentation today is most consistent with signs and sx associated with low back pain and pt will benefit from skilled PT 2 week x 4 weeks to address the following problems and impairments noted upon evaluation: pain, lumbar ROM, core strength, hip strength, tenderness to palpation. These problems limit the patient with the following functional activities: ADLs, stair negotiation. The prescribed treatment plan of care is medically necessary. Co-morbidities of none were identified and taken into considerations of plan of care. Pt was educated on HEP, role of PT, prognosis, POC. Frequency and Duration: The patient will be seen 2 x week x 4 weeks Short Term Goals: Pt will report centralization of sx in 2 weeks. Pt will demonstrate improved hip MMT strength by 1/3 grade in 2 weeks for improved lumbopelvic stability. Pt will demonstrate improved lumbar ROM in available range with min to no pain in 2 weeks. 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 Pt will demonstrate ability to negotiate stairs with min to no pain in 4 weeks for improved access to her home. Treatment Plan: Modalities to reduce pain, spasms and effusion. Manual therapy to restore motion and function. Therapeutic exercise to improve strength and flexibility. Neuromuscular re-education for posture and balance. Therapeutic activities to return to functional activities of daily living. Electronically signed by: Tata Hassan, PT, DPT, ATC Please sign and return to therapist. Thank you for your referral.
--- NOTE | 2024-03-25 11:23 | MHC.PT.DC ---
[facility] [place] Office [place] [facility] [place] [facility] [address] David Oliva [address] [phone] F: [phone] F: [phone] F: [phone] F: [phone] Physical Therapy Discharge Report Diagnosis: R SI joint dysfunction Date of Surgery: n/a Date of Evaluation: 03/05/24 Date of Discharge: 03/25/24 Treatments to Date: 3 Cancellations to Date: 1 No Shows to Date: 0 Discharge Status: Patient Elected to Stop Recommend MD Follow-up Discharge Summary: 03/25/2024: She states PT is not helping her. She saw pain management who is going to be giving her injections. She is stating she would like to stop PT at this point which I feel is reasonable due to her reporting it is not helping her. She also does not want to participate in exercises when she attends her appointments so it is also not appropriate to continue for that reason as well. She will be d/c and should continue to follow up with her referring provider. Electronically signed by: Tata Hassan, PT, DPT, ATC Please sign and return to therapist. Thank you for your referral.
== END 2024-03-25 11:23 | disposition home or self-care (01) ==
LOC: HO.PTCHIC 11:00
PROVIDERS: PCP Family Medicine; Visit Provider Registered Nurse Emergency
DX: M53.3 Sacrococcygeal disorders, not elsewhere classified (principal); M47.816 Spondylosis without myelopathy or radiculopathy, lumbar region
CPT/HCPCS: 97110; 97161

== ENCOUNTER 2024-05-14 06:25 | Outpatient (REF) | payer MEDICAID, SELFPAY | END 2024-05-14 06:26 | disposition home or self-care (01) | LOC: CF 06:25 | PROVIDERS: Visit Provider Anesthesiology | DX: M47.816 Spondylosis without myelopathy or radiculopathy, lumbar region (principal) | CPT/HCPCS: 64493; 64494; J2003; J2795; Q9967 ==

== ENCOUNTER 2024-05-14 11:48 | Outpatient (AMB) | payer MEDICAID, SELFPAY ==
--- NOTE | 2024-05-14 12:48 | A.OFFVIS_ITS ---
Vital Signs 05/14/24 13:40 05/14/24 13:40 Height 4 ft 10 in 4 ft 10 in Weight 128 lb 128 lb BMI 26.7 26.7 BP 122/65 113/68 Blood Pressure Location Lt brachial Lt brachial Position Sitting Sitting Respiration 14 14 Pulse 69 69 Pulse Source Pulse Oximeter Pulse Oximeter Pulse Oximetry (%) 99 99 Oxygen Delivery Method Room Air Room Air Comment pre-op post-op Intake Visit Reasons: BILATERAL DX L3, L4 DRL5 MBB/ATIVAN REQ Allergies NSAIDS (Non-Steroidal Anti-Inflamma Adverse Reaction (Mild, Verified 05/17/24 13:01) Unknown Sulfa (Sulfonamide Antibiotics) Adverse Reaction (Mild, Verified 05/17/24 13:01) rash sulfacetamide Adverse Reaction (Mild, Verified 05/17/24 13:01) Unknown sulfadiazine Adverse Reaction (Mild, Verified 05/17/24 13:01) Unknown Physical Exam Vital Signs: Last Vital Signs Pulse 69 05/14/24 13:40 Resp 14 05/14/24 13:40 BP 113/68 05/14/24 13:40 Pulse Ox 99 05/14/24 13:40 Oxygen Delivery Method Room Air 05/14/24 13:40 BMI result Body Mass Index 26.7 Assessment & Plan Assessment & Plan (1) Lumbar spondylosis: Code(s): M47.816 - Spondylosis without myelopathy or radiculopathy, lumbar region Category: Medical Plan Diagnostic medial branch block L3,L4 dorsal ramus L5 bilateral.? ? ?Informed consent was explained to the patient. All questions were explained and? answered.? The patient was taken inside the operating room where she was positioned prone on the operating table. Time-out was performed delineating correct site, side, the nature of the procedure, patient's allergy, . All operating room staff was participating in OR time-out procedure. ? ? The lower back was prepped with ChloraPrep and draped with sterile towels.? C- arm was brought over the operating field and sq picture of L4-, L5 vertebra and S1 AREA were delineated on the screen.? Point of interest were delineated as confluence of superior articular process of L4 and L5 vertebra bilaterally with corresponding transverse processes as well as confluence of the sacral alae bilaterally with superior articular process of S1.? The projection of the point of interest to the skin were injected with the small amount of local anesthetic lidocaine 2% mixed with ropivacaine 0.5% 1-1 approcimately 1 cc.? After that 22 gauge 3.5 inch spinal needle was driven sequentially to the points of interest in tunnel vision fashion. After needles gently contacted the bone at the point of interests the needle was injected with small amount of the contrast.? The injection of the contrast did not demonstrate any intravascular or intrathecal spread of the contrast.? After that injection of the? ropivacaine 0.5%-1cc was performed at each needle location.??after that the needles were removed and Bandaids were applied. ? Upon completion of the injections? needle was? removed and sterile Band-Aids were applied.? The patient tolerated the procedure well. Orders: Orders FL guidance in treatment room 05/14/24 M47.816 - Spondylosis without myelopathy or radiculopathy, lumbar region Medications: New lorazepam (Ativan) Take 30 minutes prior to arrival to procedure 1 mg PO ONCE 1 tab 0RF anxiety Coding Level of Care Code Procedure Only Diagnoses Lumbar spondylosis M47.816
[2024-05-14 13:40] VITALS: BP 113/68; BP 122/65; PULSE 69; RESP 14; O2SAT 99; BMI 26.7
== END 2024-05-14 13:40 | disposition home or self-care (01) ==
LOC: HO.PMCPRC 11:48
PROVIDERS: PCP Family Medicine; Visit Provider Anesthesiology
DX: M47.816 Spondylosis without myelopathy or radiculopathy, lumbar region (principal)
CPT/HCPCS: 64493; 64494

== ENCOUNTER 2024-05-17 12:54 | Outpatient (AMB) | payer MEDICAID, SELFPAY ==
[2024-05-17 13:01] VITALS: BP 122/57; PULSE 68; O2SAT 98; BMI 29.0
--- NOTE | 2024-05-17 13:01 | MHC.OFFVIS ---
Vital Signs 05/17/24 13:01 Height 4 ft 10 in Weight 139 lb BMI 29.0 BP 122/57 L Blood Pressure Location Lt brachial Position Sitting Pulse 68 Pulse Source Pulse Oximeter Pulse Oximetry (%) 98 Oxygen Delivery Method Room Air Intake Visit Reasons: BILATERAL DIAGNOSTIC L3, L4, DRL5 MBB Allergies NSAIDS (Non-Steroidal Anti-Inflamma Adverse Reaction (Mild, Verified 05/17/24 13:01) Unknown Sulfa (Sulfonamide Antibiotics) Adverse Reaction (Mild, Verified 05/17/24 13:01) rash sulfacetamide Adverse Reaction (Mild, Verified 05/17/24 13:01) Unknown sulfadiazine Adverse Reaction (Mild, Verified 05/17/24 13:01) Unknown Medication List - Last Reconciled 05/17/24 by Ginny Ha acetaminophen ER (Pain Relief (acetaminophen)) 650 mg PO Q8H buspirone 15 mg PO BID atruantiur-rkicjxvyeqejx-sjrl 50-325-40 mg 2 caps PO Q4-6H PRN cetirizine (All Day Allergy (cetirizine)) 10 mg PO DAILY PRN cholecalciferol (vitamin D3) 50 mcg PO DAILY diphenhydramine HCl (Allergy (diphenhydramine)) 25 mg PO BEDTIME PRN docusate sodium 100 mg PO BID ezetimibe 10 mg PO DAILY fluticasone propionate 50 mcg/actuation (Allergy Relief (fluticasone)) 1 spray intranasal BID gabapentin 300 mg PO BEDTIME hydroxyzine HCl 50 mg PO BEDTIME lidocaine 5% 1 patch topical DAILY lorazepam (Ativan) 1 mg PO ONCE meclizine 25 mg PO BID PRN methocarbamol 500 mg PO TID PRN mirabegron ER (Myrbetriq) 50 mg PO DAILY morphine 15 mg PO Q6H PRN omeprazole 20 mg PO DAILY polyethylene glycol 3350 17 grams PO DAILY rosuvastatin 40 mg PO DAILY rotigotine (Neupro) 2 mg transdermal DAILY semaglutide (weight loss) (Wegovy) 2.4 mg subcut QWEEK sennosides (senna) 8.6 mg PO DAILY sertraline 100 mg PO DAILY sertraline 25 mg PO DAILY sumatriptan succinate 100 mg PO Q2-4H PRN topiramate XR 100 mg PO DAILY tramadol 50 mg PO Q6H PRN trazodone 100 mg PO DAILY verapamil 40 mg PO DAILY HPI Comments Details: Patient presents back to the office today for follow-up, 3 days status post bilateral diagnostic L3-L4 DR L5 medial branch blocks with local anesthetic She reports 70% pain relief with improvement in functional mobility for 2 days after the procedure. Even today she reports her pain is down to a 2/10, prior to the procedure she was at a 7/10 Denies any untoward effects of the injections Prior: Patient presented to the office today, accompanied by her daughter, for follow-up lower back pain Recent x-ray reviewed with patient and her daughter, results as per below. She was recently evaluated in the emergency room for worsening lower back pain. They discharged her with oral morphine, this has been discontinued. Her primary care provider then prescribed her tramadol. She has been taking this without improvement of her pain. Currently attending physical therapy, she finds that this worsens her pain. Using the sacroiliac joint belt with minimal improvement. Today would like to focus on her axial back pain and wait to treat sacroiliac joint pain. Denies red flag symptoms including new loss of bowel, bladder or saddle anesthesia. Prior: Celia is a very pleasant 59-year-old female who presents the office today for evaluation management of her chronic lower back pain. Patient reports that for approximately 7 years she has been suffering with midline lower back pain without radiation down either lower extremity With a past one-week she has developed acute pain over the right PSIS with radiation into the thigh She has been taking gabapentin, baclofen and using lidocaine patches without improvement of her pain Previously underwent injections to her lower back for years ago, these provided some relief for a short time. 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 Most recent MRI was 2020, results are not available for review. States she was told there is a protrusion of disc at L5 Denies recent attempts at physical therapy Denies red flag symptoms including new loss of bowel, bladder or saddle anesthesia She reports worse pain is the right lower back pain over PSIS, worse with walking, standing, sitting Pain today is rated as 8/10, constant In terms of muscle damage condition is described as stabbing, aching Pain is negatively impacting patient's enjoyment of life, general activity, sleep, ability to care for self inability function normally. Denies current use of anticoagulants Denies implantable devices, pacemaker defibrillator Denies nicotine, tobacco, alcohol or illicit substance use Review of Systems Const All systems reviewed & are unremarkable except as noted in HPI and below Physical Exam Vital Signs: Last Vital Signs Pulse 68 05/17/24 13:01 BP 122/57 L 05/17/24 13:01 Pulse Ox 98 05/17/24 13:01 Oxygen Delivery Method Room Air 05/17/24 13:01 BMI result Body Mass Index 29.0 General: awake, alert, oriented. Answers questions appropriately. Fully engaged in examination. Skin: warm, dry, intact HEENT: Normocephalic. Hearing intact. Cardiac: External chest normal in appearance. Respiratory: No cough, audible wheezing or stridor. Abdomen: without gross distension. MS: No obvious swelling or deformities. Able to transition from sit to stand unassisted. Ambulates with bilaterally normal heel strike and toe off Bilateral lower extremity strength 5/5 Tenderness over midline lumbar vertebrae and lumbar paraspinal muscles Facet loading positive Neurological: Oriented to person, place, time and situation. Thought process intact. Psychiatric: Appropriate mood and affect. Good judgment and insight. Results Reviewed Results Reviewed: 02/16/2024: XR/XR lumbar spine 4V min FINDINGS: There are 5 nonrib-bearing lumbar vertebral bodies. There is slight leftward curvature of the lumbar spine. Sagittal alignment is maintained. Vertebral body heights are preserved. Mild intervertebral disc narrowing at L5-S1. No spondylolysis. Facet hypertrophy at L5-S1. Sacroiliac joints are intact. IMPRESSION: Mild degenerative disc disease at L5-S1. Assessment & Plan Assessment & Plan (1) Sacroiliac joint dysfunction of right side: Code(s): M53.3 - Sacrococcygeal disorders, not elsewhere classified Category: Medical (2) Lumbar spondylosis: Code(s): M47.816 - Spondylosis without myelopathy or radiculopathy, lumbar region Category: Medical Plan Celia is a very pleasant 59-year-old female who presented to the office today for follow-up lower back pain, 3 days status post bilateral diagnostic L3-L4 DR L5 medial branch blocks She reports 70% pain relief with improvement in functional and mobility for 2 days after the injection Patient has exhausted conservative therapy including PT, muscle relaxers, heat, ice. 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 Informational pamphlets provided. Patient would like to take some time to consider these options, she will call the office when she is ready to proceed. Continue with methocarbamol 500 mg p.o. t.i.d. as needed. Patient advised on cautions for use All questions and concerns were answered, patient agrees with the plan. Patient will call the office when she is ready to proceed with therapeutic intervention. Medications: Changed From methocarbamol Discontinue use of baclofen No driving while taking this medication. 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 Do no take with alcohol or other PET TRAINING INSTRUCTOR Depressants 500 mg PO TID PRN 90 tabs 1RF muscle spasm Coding Level of Care Code Est Pt Level 3 (14101) Complex EM visit Add On G2211 Diagnoses Sacroiliac joint dysfunction of right side M53.3 Lumbar spondylosis M47.816
== END 2024-05-17 13:20 | disposition home or self-care (01) ==
PROVIDERS: PCP Family Medicine; Visit Provider Registered Nurse Emergency
DX: M53.3 Sacrococcygeal disorders, not elsewhere classified (principal); M47.816 Spondylosis without myelopathy or radiculopathy, lumbar region
CPT/HCPCS: 99213

== ENCOUNTER → 2024-05-17 12:54 | Outpatient (BNVA) | payer MEDICAID, SELFPAY | PROVIDERS: PCP Family Medicine; Visit Provider Registered Nurse Emergency | DX: M53.3 Sacrococcygeal disorders, not elsewhere classified (principal); M47.816 Spondylosis without myelopathy or radiculopathy, lumbar region | CPT/HCPCS: 99212 ==

== ENCOUNTER 2024-05-27 13:02 | Outpatient (REF) | payer MEDICAID, SELFPAY ==
[2024-05-27 16:13] LABS: MANUAL DIFF FLAG NO
[2024-05-27 16:19] LABS: Basophils Percent Auto 0.7 % (0-2); Eosinophils Absolute Auto 0.1 X10*3/uL (0.0-0.4); Eosinophils Percent Auto 1.1 % (0-4); Hematocrit 37.5 % (37.0-47.0); Hemoglobin 12.3 g/dl (12.0-16.0); Imm Gran Abs Auto 0.01 X10*3/uL (0.00-0.03); Imm Gran Pct Auto 0.2 % (0.0-0.4); Lymphocytes Absolute Auto 1.9 X10*3/uL (1.2-4.9); Lymphocytes Percent Auto 43.3 % (20-40); Mean Corpuscular HGB Conc 32.8 g/dl (31.0-35.0); Mean Corpuscular Hemoglobin 31.1 pg (27.0-33.0); Mean Corpuscular Volume 94.7 fL (80.0-98.0); Mean Platelet Volume 10.2 fL (9.4-12.3); Monocytes Absolute Auto 0.2 X10*3/uL (0.1-1.2); Neutrophils Absolute Auto 2.2 x10*3/uL (2.0-8.3); Neutrophils Percent Auto 49.7 % (45-73); Platelet Count 307 X10*3/uL (160-400); Red Blood Count 3.96 X10*6/uL (4.20-5.50); Red Cell Distribution Width 12.2 % (11.0-16.0); White Blood Count 4.4 X10*3/uL (4.8-10.8)
[2024-05-27 16:46] LABS: Iron 94 mcg/dL (30-160); Percent Iron Saturation 33 % (15-50); Total Iron Binding Capacity 288 mcg/dL (228-428); Unsaturated Iron Binding 194 ug/dL
[2024-05-27 16:55] LABS: TSH reflex Free T4 1.49 uIU/mL (0.32-4.0); Vitamin D 25-OH Total 84.7 ng/mL (>30)
== END 2024-05-27 13:03 | disposition home or self-care (01) ==
LOC: HO.HHCL 13:02
PROVIDERS: Visit Provider Family Medicine
DX: L65.9 Nonscarring hair loss, unspecified (principal)
CPT/HCPCS: 36415; 82306; 83540; 84443; 85025

== ENCOUNTER 2024-06-13 10:56 | Outpatient (REF) | payer MEDICAID, SELFPAY | END 2024-06-13 10:57 | disposition home or self-care (01) | LOC: HO.XRAY 10:56 | PROVIDERS: PCP Family Medicine; Visit Provider Registered Nurse Emergency | DX: M54.6 Pain in thoracic spine (principal); M53.3 Sacrococcygeal disorders, not elsewhere classified; M47.816 Spondylosis without myelopathy or radiculopathy, lumbar region | CPT/HCPCS: 72072; 99212 ==

== ENCOUNTER 2024-06-13 10:56 | Outpatient (AMB) | payer MEDICAID, SELFPAY ==
[2024-06-13 11:11] VITALS: BP 122/63; PULSE 73; O2SAT 100; BMI 28.2
--- NOTE | 2024-06-13 11:11 | A.OFFVIS_ITS ---
Vital Signs 06/13/24 11:11 Height 4 ft 10 in Weight 135 lb BMI 28.2 BP 122/63 Blood Pressure Location Rt brachial Position Sitting Pulse 73 Pulse Source Pulse Oximeter Pulse Oximetry (%) 100 Oxygen Delivery Method Room Air Intake Visit Reasons: FU back pain Allergies NSAIDS (Non-Steroidal Anti-Inflamma Adverse Reaction (Mild, Verified 06/13/24 11:12) Unknown Sulfa (Sulfonamide Antibiotics) Adverse Reaction (Mild, Verified 06/13/24 11:12) rash sulfacetamide Adverse Reaction (Mild, Verified 06/13/24 11:12) Unknown sulfadiazine Adverse Reaction (Mild, Verified 06/13/24 11:12) Unknown Medication List - Last Reconciled 06/13/24 by Ginny Ha acetaminophen ER (Pain Relief (acetaminophen)) 650 mg PO Q8H buspirone 15 mg PO BID tnvamucnwb-babhsxvjkzons-vuri 50-325-40 mg 2 caps PO Q4-6H PRN cetirizine (All Day Allergy (cetirizine)) 10 mg PO DAILY PRN cholecalciferol (vitamin D3) 50 mcg PO DAILY diphenhydramine HCl (Allergy (diphenhydramine)) 25 mg PO BEDTIME PRN docusate sodium 100 mg PO BID ezetimibe 10 mg PO DAILY fluticasone propionate 50 mcg/actuation (Allergy Relief (fluticasone)) 1 spray intranasal BID gabapentin 300 mg PO BEDTIME hydroxyzine HCl 50 mg PO BEDTIME lidocaine 5% 1 patch topical DAILY lorazepam (Ativan) 1 mg PO ONCE meclizine 25 mg PO BID PRN methocarbamol 500 mg PO TID PRN mirabegron ER (Myrbetriq) 50 mg PO DAILY morphine 15 mg PO Q6H PRN omeprazole 20 mg PO DAILY polyethylene glycol 3350 17 grams PO DAILY rosuvastatin 40 mg PO DAILY rotigotine (Neupro) 2 mg transdermal DAILY semaglutide (weight loss) (Wegovy) 2.4 mg subcut QWEEK sennosides (senna) 8.6 mg PO DAILY sertraline 100 mg PO DAILY sertraline 25 mg PO DAILY sumatriptan succinate 100 mg PO Q2-4H PRN topiramate XR 100 mg PO DAILY tramadol 50 mg PO Q6H PRN trazodone 100 mg PO DAILY verapamil 40 mg PO DAILY HPI Comments Details: Celia presents back to the office today for follow-up Today complaining of mid back pain. She continues to report at least 70% pain relief of the lower back Thoracic back pain worse with bending, twisting, sweeping, mopping, sitting Previously she was taking methocarbamol 500 mg, she is requesting a dose increase this medication. She has not done physical therapy for her thoracic back pain, she is willing to do physical therapy but requested be sent to [facility] Prior: Patient presents back to the office today for follow-up, 3 days status post bilateral diagnostic L3-L4 DR L5 medial branch blocks with local anesthetic She reports 70% pain relief with improvement in functional mobility for 2 days after the procedure. Even today she reports her pain is down to a 2/10, prior to the procedure she was at a 7/10 Denies any untoward effects of the injections Prior: Patient presented to the office today, accompanied by her daughter, for follow-up lower back pain Recent x-ray reviewed with patient and her daughter, results as per below. She was recently evaluated in the emergency room for worsening lower back pain. They discharged her with oral morphine, this has been discontinued. Her primary care provider then prescribed her tramadol. She has been taking this without improvement of her pain. Currently attending physical therapy, she finds that this worsens her pain. Using the sacroiliac joint belt with minimal improvement. Today would like to focus on her axial back pain and wait to treat sacroiliac joint pain. Denies red flag symptoms including new loss of bowel, bladder or saddle anesthesia. Prior: Celia is a very pleasant 59-year-old female who presents the office today for evaluation management of her chronic lower back pain. Patient reports that for approximately 7 years she has been suffering with midline lower back pain without radiation down either lower extremity With a past one-week she has developed acute pain over the right PSIS with radiation into the thigh She has been taking gabapentin, baclofen and using lidocaine patches without improvement of her pain Previously underwent injections to her lower back for years ago, these provided some relief for a short time. 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 Most recent MRI was 2020, results are not available for review. States she was told there is a protrusion of disc at L5 Denies recent attempts at physical therapy Denies red flag symptoms including new loss of bowel, bladder or saddle anesthesia She reports worse pain is the right lower back pain over PSIS, worse with walking, standing, sitting Pain today is rated as 8/10, constant In terms of muscle damage condition is described as stabbing, aching Pain is negatively impacting patient's enjoyment of life, general activity, sleep, ability to care for self inability function normally. Denies current use of anticoagulants Denies implantable devices, pacemaker defibrillator Denies nicotine, tobacco, alcohol or illicit substance use Review of Systems Const All systems reviewed & are unremarkable except as noted in HPI and below Physical Exam Vital Signs: Last Vital Signs Pulse 73 06/13/24 11:11 BP 122/63 06/13/24 11:11 Pulse Ox 100 06/13/24 11:11 Oxygen Delivery Method Room Air 06/13/24 11:11 BMI result Body Mass Index 28.2 General: awake, alert, oriented. Answers questions appropriately. Fully engaged in examination. Skin: warm, dry, intact HEENT: Normocephalic. Hearing intact. Cardiac: External chest normal in appearance. Respiratory: No cough, audible wheezing or stridor. Abdomen: without gross distension. MS: No obvious swelling or deformities. Able to transition from sit to stand unassisted. Ambulates with bilaterally normal heel strike and toe off Bilateral lower extremity strength 5/5 Tenderness over midline thoracic/upper lumbar vertebrae and paraspinal muscles Facet loading positive Neurological: Oriented to person, place, time and situation. Thought process intact. Psychiatric: Appropriate mood and affect. Good judgment and insight. Results Reviewed Results Reviewed: 02/16/2024: XR/XR lumbar spine 4V min FINDINGS: There are 5 nonrib-bearing lumbar vertebral bodies. There is slight leftward curvature of the lumbar spine. Sagittal alignment is maintained. Vertebral body heights are preserved. Mild intervertebral disc narrowing at L5-S1. No spondylolysis. Facet hypertrophy at L5-S1. Sacroiliac joints are intact. IMPRESSION: Mild degenerative disc disease at L5-S1. Assessment & Plan Assessment & Plan (1) Thoracic back pain: Code(s): M54.6 - Pain in thoracic spine Category: Medical (2) Sacroiliac joint dysfunction of right side: Code(s): M53.3 - Sacrococcygeal disorders, not elsewhere classified Category: Medical (3) Lumbar spondylosis: Code(s): M47.816 - Spondylosis without myelopathy or radiculopathy, lumbar region Category: Medical Plan Celia presented back to the office today for follow-up Thoracic spine x-ray ordered for evaluation Order placed for PT eval and treat Methocarbamol 750 mg p.o. 3 times daily as needed. Patient advised on cautions for use All questions and concerns were answered, patient agrees with the plan. Follow up after physical therapy, sooner if needed. Orders: Orders XR thoracic spine 3V Today M54.6 - Pain in thoracic spine PT Evaluation and Treatment Today M54.6 - Pain in thoracic spine Medications: Changed From methocarbamol No driving while taking this medication. 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 Do no take with alcohol or other SURVEILLANCE SYSTEMS ENGINEER Depressants 750 mg PO TID PRN 90 tabs 1RF muscle spasm Coding Level of Care Code Est Pt Level 3 (81111) Complex EM visit Add On G2211 Diagnoses Thoracic back pain M54.6 Sacroiliac joint dysfunction of right side M53.3 Lumbar spondylosis M47.816
== END 2024-06-13 11:17 | disposition home or self-care (01) ==
PROVIDERS: PCP Family Medicine; Visit Provider Registered Nurse Emergency
DX: M54.6 Pain in thoracic spine (principal); M53.3 Sacrococcygeal disorders, not elsewhere classified; M47.816 Spondylosis without myelopathy or radiculopathy, lumbar region
CPT/HCPCS: 99213

== ENCOUNTER 2024-08-16 10:33 | Outpatient (AMB) | payer MEDICAID, SELFPAY ==
--- NOTE | 2024-08-16 10:43 | A.OFFVIS_ITS ---
Vital Signs 08/16/24 10:47 Height 4 ft 10 in Weight 126 lb 8 oz BMI 26.4 BP 118/58 L Blood Pressure Location Lt brachial Position Sitting Pulse 71 Pulse Source Pulse Oximeter Pulse Oximetry (%) 99 Oxygen Delivery Method Room Air Intake Visit Reasons: follow up xray results peter from 08/08 Intake Note: Pain today 2/10 Environmental Assistant Required: No Accompanied by: Spouse Allergies NSAIDS (Non-Steroidal Anti-Inflamma Adverse Reaction (Mild, Verified 08/16/24 10:48) Unknown Sulfa (Sulfonamide Antibiotics) Adverse Reaction (Mild, Verified 08/16/24 10:48) rash sulfacetamide Adverse Reaction (Mild, Verified 08/16/24 10:48) Unknown sulfadiazine Adverse Reaction (Mild, Verified 08/16/24 10:48) Unknown HPI Comments Details: Patient presents back to the office today for follow-up back pain, review of recent x-ray X-ray reviewed, results as per below Continues with 70% pain relief of her lower back. Middle back pain has improved States physical therapy did not call her after last visit, she does not think it is warranted at this time and would like to hold off on pursuing Continues with methocarbamol as needed. States that if she is having bad pain the medication helps. She would like a refill. Prior: Celia presents back to the office today for follow-up Today complaining of mid back pain. She continues to report at least 70% pain relief of the lower back Thoracic back pain worse with bending, twisting, sweeping, mopping, sitting Previously she was taking methocarbamol 500 mg, she is requesting a dose increase this medication. She has not done physical therapy for her thoracic back pain, she is willing to do physical therapy but requested be sent to [facility] Prior: Patient presents back to the office today for follow-up, 3 days status post bilateral diagnostic L3-L4 DR L5 medial branch blocks with local anesthetic She reports 70% pain relief with improvement in functional mobility for 2 days after the procedure. Even today she reports her pain is down to a 2/10, prior to the procedure she was at a 7/10 Denies any untoward effects of the injections Prior: Patient presented to the office today, accompanied by her daughter, for follow-up lower back pain Recent x-ray reviewed with patient and her daughter, results as per below. She was recently evaluated in the emergency room for worsening lower back pain. They discharged her with oral morphine, this has been discontinued. Her primary care provider then prescribed her tramadol. She has been taking this without improvement of her pain. Currently attending physical therapy, she finds that this worsens her pain. Using the sacroiliac joint belt with minimal improvement. Today would like to focus on her axial back pain and wait to treat sacroiliac joint pain. Denies red flag symptoms including new loss of bowel, bladder or saddle anes thesia. Prior: Celia is a very pleasant 59-year-old female who presents the office today for evaluation management of her chronic lower back pain. Patient reports that for approximately 7 years she has been suffering with midline lower back pain without radiation down either lower extremity With a past one-week she has developed acute pain over the right PSIS with radiation into the thigh She has been taking gabapentin, baclofen and using lidocaine patches without improvement of her pain Previously underwent injections to her lower back for years ago, these provided some relief for a short time. 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 Most recent MRI was 2020, results are not available for review. States she was told there is a protrusion of disc at L5 Denies recent attempts at physical therapy Denies red flag symptoms including new loss of bowel, bladder or saddle anesthesia She reports worse pain is the right lower back pain over PSIS, worse with walking, standing, sitting Pain today is rated as 8/10, constant In terms of muscle damage condition is described as stabbing, aching Pain is negatively impacting patient's enjoyment of life, general activity, sleep, ability to care for self inability function normally. Denies current use of anticoagulants Denies implantable devices, pacemaker defibrillator Denies nicotine, tobacco, alcohol or illicit substance use Review of Systems Const All systems reviewed & are unremarkable except as noted in HPI and below Physical Exam General: awake, alert, oriented. Answers questions appropriately. Fully engaged in examination. Skin: warm, dry, intact HEENT: Normocephalic. Hearing intact. Cardiac: External chest normal in appearance. Respiratory: No cough, audible wheezing or stridor. Abdomen: without gross distension. MS: No obvious swelling or deformities. Able to transition from sit to stand unassisted. Ambulates with bilaterally normal heel strike and toe off Neurological: Oriented to person, place, time and situation. Thought process intact. Psychiatric: Appropriate mood and affect. Good judgment and insight. Results Reviewed Results Reviewed: 06/13/24 XR/XR thoracic spine 3V IMPRESSION: Unremarkable examination. 02/16/2024: XR/XR lumbar spine 4V min FINDINGS: There are 5 nonrib-bearing lumbar vertebral bodies. There is slight leftward curvature of the lumbar spine. Sagittal alignment is maintained. Vertebral body heights are preserved. Mild intervertebral disc narrowing at L5-S1. No spondylolysis. Facet hypertrophy at L5-S1. Sacroiliac joints are intact. IMPRESSION: Mild degenerative disc disease at L5-S1. Assessment & Plan Assessment & Plan (1) Thoracic back pain: Code(s): M54.6 - Pain in thoracic spine Category: Medical (2) Sacroiliac joint dysfunction of right side: Code(s): M53.3 - Sacrococcygeal disorders, not elsewhere classified Category: Medical (3) Lumbar spondylosis: Code(s): M47.816 - Spondylosis without myelopathy or radiculopathy, lumbar region Category: Medical Plan X-ray reviewed, results as per below Patient will call the office if she wishes to proceed with physical therapy, referral will be sent at that time Continue with Methocarbamol 750 mg p.o. 3 times daily as needed. Refill sent today. Patient advised on cautions for use All questions and concerns were answered, patient agrees with the plan. Follow up in 3 months, sooner if needed. Medications: Refilled methocarbamol No driving while taking this medication. Do no take with alcohol or other DIRECT SUPPORT STAFF Depressants 750 mg PO TID PRN 90 tabs 3RF muscle spasm Coding Level of Care Code Est Pt Level 3 (86171) Complex EM visit Add On G2211 Diagnoses Thoracic back pain M54.6 Sacroiliac joint dysfunction of right side M53.3 Lumbar spondylosis M47.816
[2024-08-16 10:47] VITALS: BP 118/58; PULSE 71; O2SAT 99; BMI 26.4
== END 2024-08-16 10:57 | disposition home or self-care (01) ==
PROVIDERS: PCP Family Medicine; Visit Provider Registered Nurse Emergency
DX: M54.6 Pain in thoracic spine (principal); M53.3 Sacrococcygeal disorders, not elsewhere classified; M47.816 Spondylosis without myelopathy or radiculopathy, lumbar region
CPT/HCPCS: 99213

== ENCOUNTER → 2024-08-16 10:33 | Outpatient (BNVA) | payer MEDICAID, SELFPAY | PROVIDERS: PCP Family Medicine; Visit Provider Registered Nurse Emergency | DX: M54.6 Pain in thoracic spine (principal); M53.3 Sacrococcygeal disorders, not elsewhere classified; M47.816 Spondylosis without myelopathy or radiculopathy, lumbar region | CPT/HCPCS: 99212 ==

== ENCOUNTER 2025-02-27 10:05 | Outpatient (REF) | payer MEDICAID, SELFPAY ==
--- OUTSIDE RECORDS SUMMARY | 2025-02-27 10:49 | XMS_ITS | Clinical Summary ---
Author Organization [facility] Address [address] [address] [place] [address] Care Team Providers Care Community Health Representative Name Role Phone Unavailable Primary Care Provider Unavailabl e Source Comments PLEASE NOTE, if this patient is a minor, it may be UNLAWFUL to discuss sensitive information that is contained in these records (such as FAMILY PLANNING, MENTAL HEALTH or SUBSTANCE ABUSE) with the minor patient's parent or other person without the patient's specific authorization.[facility] Immunizations Immunization Administration Dates Next Due PFIZER COVID VACCINE, PURPLE CAP, 12+ 08/02/2021 Social History Tobacco Use Types Packs/Day Years Used Date Smoking Tobacco: Never Assessed Social Connections Answer Date Recorded Social Connections and Isolation 0 11/25/2020 Financial Resource Strain Answer Date R ecorded Financial Resource Strain 0 2020 Stress Answer Date Recorded Stress 0 11/25/2020 Physical Activity Answer Date Recorded Physical Activity 0 11/25/2020 Food Insecurity Answer Date Recorded Food 0 11/25/2020 Transportation Needs Answer Date Record ed Transportation 0 11/25/2020 Housing Stability Answer Date Recorded Housing 0 11/25/2020 Safety and Environment Answer Date Esteban rded Safety 0 11/25/2020 Utilities Answer Date Recorded Utilities 0 11/25/2020 Employment Answer Date Recorded Employment 0 11/25/2020 Comments Unknown Sex and Gender Information Value Date Recorded Sex Assigned at Not on file Legal Sex Female 11:53 AM PST Gender Identity Not on file Sexual Orientation Not on file Plan of Treatment Health Maintenance Due Date Last Done Comments Anxiety Screening 1967 Diabetes Screening 1967 HPV Screening 1967 Hepatitis C Screening 1967 Lipid Screening 1967 Pap + HPV 1967 Tobacco Screening 1967 HIV Screening 1982 Hypertension Screening (#1) 1985 Imm-Hepatitis B (1 of 3 - 19 + 3-dose series) 1986 Cervical Cancer Screening 01/17/1988 Pap Smear 01/17/1988 Breast Cancer Screening (Mammogram) 2007 CT Colonography 01/17/2012 Colonoscopy 01/17/2012 Colorectal Cancer Screening 01/17/2012 FIT/gFOBT 01/17/2012 Fecal DNA 01/17/2012 Flexible Sigmoidoscopy 01/17/2012 Imm-Pneumococcal 50+ (1 of 1 - PCV) 2017 Imm-Zoster, Recombinant (1 of 2) 2017 Znw-NGLXX-51 (4 - season) 2024 08/02/2021, 12/16/2020, 11/25/2020 Alcohol and Drug Screen 07/31/2024 Depression Annual Screen 07/31/2024 Imm-Influenza (#1) 2025 06/01/2015, 1 08/01/2014, 06/09/2014, Additional history exists Imm-DTaP/Tdap/Td (3 - Td or Tdap) 08/05/2025 016, 03/24/2014 Cervical Ablation/Cold-Knife Conization Discontinued Cervical Cryotherapy Discontinued Colposcopy Discontinued Endometrial Biopsy Discontinued Excision/Leep Discontinued HPV Genotyping Discontinued Vaginal Pap Discontinued Vulvoscopy Discontinued Insurance [employer] NET DENTAL DENTAL [address] [place]
--- OUTSIDE RECORDS SUMMARY | 2025-02-27 10:49 | XMS_ITS | Encounter Summary ---
Author Organization [facility] Address [address] [place] [address] Phone Care Team Providers Care Trash Man Name Role Phone Clarissa Cook MD Primary Care Provider [phone] Encounter Details Date Type Department Care Team (Late st Contact Info) Description 02/01/2016 Ophth Exam [facility] [address] [place] [address] Sang Okeefe MD [email or web address] Social History Tobacco Use Types Packs/Day Years Used Date Smoking Tobacco: Former Cigarettes 1 16 0 07/31/1979 - 07/31/1995 Smokeless Tobacco: Never Comments Unknown Sex and Gender Information Value Date Recorded Sex Assigned at Not on file Legal Sex Female 9:14 PM EDT Gender Identity Not on file Sexual Orientation Not on file documented as of this encounter Plan of Treatment Not on file documented as of this encounter Visit Diagnoses Not on filedocumented in this encounter Care Teams Trash Man Relationship Specialty Start Date End Date Clarissa Cook MD [address] [place] [address] PCP - General 02/01/16 documented as of this encounter Additional Source Comments The information contained in this document represents components of the legal health record. It is not the complete legal health record.[facility]
--- OUTSIDE RECORDS SUMMARY | 2025-02-27 10:49 | XMS_ITS | Clinical Summary ---
Author Organization [facility] Address [address] [place] [address] Care Team Providers Care Weir Fisher Name Role Phone Irene Barba MD Primary Care Provider [phone] Surgical History Surgery Date Site/Laterality Comments OTHER SURGICAL HISTORY PROCEDURE: ---- OTHER ----; COMMENT: benign mass removed from right side of neck PARTIAL HYSTERECTOMY PROCEDURE: NH SUPRACERVICAL ABDL HYSTER W/WO RMVL TUBE OVARY; COMMENT: uterine inversion post delivery KNEE ARTHROSCOPY 08/2016 Right PROCEDURE: NH ARTHROSCOPY AID TX SPINE&/FX KNEE W/O FIXJ ESOPHAGOGASTRODUODENOSCOPY 10/23/2017 PROCEDURE: NH ESOPHAGOGASTRODUODENOSCOPY TRANSORAL DIAGNOSTIC; COMMENT: normal Medical History Medical History Date Comments CTS (carpal tunnel syndrome) 09/06/2015 DX: CTS (carpal tunnel syndrome); COMMENT: bilateral Cervical myofascial pain syndrome 09/06/2015 DX:Cervical myofascial pain syndrome Cervical spinal stenosis 08/22/2016 DX:Cerv ical spinal stenosis Degenerative disc disease, lumbar 07/19/2017 DX:Degenerative disc disease, lumbar Ground glass opacity present on imaging of lung 03/08/2017 DX:Ground glass opacity pres ent on imaging of lung Hyperlipidemia 06/09/2015 DX:Hyperlipidemi a Pain, joint, multiple sites 06/09/2015 DX:P ain, joint, multiple sites Restless leg syndrome 06/17/2016 DX:Restles s leg syndrome 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 DX:History of [place] jankis-Lucien toxic epidermal necrolysis overlap syndrome; COMMENT: Suspected due to sulfa eye drop given recently Pneumonitis 03/08/2017 DX:Pneumonitis Personal history of allergy to sulfonamides 02/11/2016 DX:Personal history of aller gy to sulfonamides Pulmonary nodule 07/03/2018 DX:Pulmonary no dule Family History Medical History Relation Name Comments Heart attack Father age 73, d Osteoporosis Father Diabetes Mother Hypertension Mother Other: Urinary Incontinence Mother Other: hyperlipidemia Mother CAD, A AA, diabetes, hypertension 71 Diabetes Sister Other: Other Sister urinary inconti nence Breast cancer Neg Hx Colon cancer Neg Hx Ovarian cancer Neg Hx Relation Name Status Comments Father Mother Sister Social History Tobacco Use Types Packs/Day Years Used Date Smoking Tobacco: Former Cigarettes 2 16.5 0 1979 - 07/31/1995 Smokeless Tobacco: Never Alcohol Use Standard Drinks/Week Comments No 0 (1 standard drink = 0.6 oz pur e alcohol) Comments Unknown Sex and Gender Information Value Date Recorded Sex Assigned at Not on file Legal Sex Female 11:38 PM EST Gender Identity Not on file Sexual Orientation Not on file Obstetrics History Last Filed Vital Signs Vital Sign Reading Time Taken Comments Blood Pressure 102/54 10/27/2023 2:53 PM EDT Sit ting L Arm Pulse 78 10/27/2023 2:53 PM EDT Temperature - - Respiratory Rate - - Oxygen Saturation - - Inhaled Oxygen Concentration - - Weight 64.9 kg (143 lb) 01/03/2024 9:05 AM EDT Height 149.9 cm (4' 11 ) 01/03/2024 9:05 AM EDT Body Mass Index 28.88 01/03/2024 9:05 AM EDT Plan of Treatment Health Maintenance Due Date Last Done Comments Hepatitis B Vaccines (1 of 3 - 19+ 3-dose series) 1986 Pneumococcal Vaccine: 50+ Years (1 of 1 - PCV) 2017 Zoster Vaccines (1 of 2) 2017 Breast Cancer Screening 08/23/2019 08/23/2017 Cholesterol Screening (Lipid Panel) 07/09/2022 Colorectal Cancer Screening: Colonoscopy 07/09/2022 HIV Screening 07/09/2022 Hepatitis C Screening 07/09/2022 Social Influencers of Health Screening 07/09/2022 COVID-19 Vaccine (1 - 2023-2 5 season) 2024 Depression Screening 07/31/2024 Influenza Vaccine (#1) 2025 5, 05/01/2012 DTaP,Tdap,and Td Vaccines (2 - Td or Tdap) 08/05/2025 08/05/2015 HIB Vaccines Aged Out No longer eligi ble based on patient's age to complete this topic HPV Vaccines Aged Out No longer eligi ble based on patient's age to complete this topic Hepatitis A Vaccines Aged Out No long er eligible based on patient's age to complete this topic IPV Vaccines Aged Out No longer eligi ble based on patient's age to complete this topic MMR Vaccines Aged Out No longer eligi ble based on patient's age to complete this topic Meningococcal ACWY Vaccine Aged Out N o longer eligible based on patient's age to complete this topic Meningococcal B Vaccine Aged Out No l onger eligible based on patient's age to complete this topic RSV Immunization Patients Under 20 months Aged Out No longer eligible b ased on patient's age to complete this topic Varicella Vaccines Aged Out No longer eligible based on patient's age to complete this topic Procedures Procedure Name Priority Date/Time Associated Diagnosis Comments SCR MAMMO BI INCL CAD Routine 08/23/2017 11:17 AM EST Encounter for screening mammogram for malignant neoplasm of breast from Last 3 Months or Most Recently Relevant to Health Maintenance Results * SCR MAMMO BI INCL CAD (08/23/2017 11:17 AM EST) Anatomical Region Laterality Modality Radiographic Natalie ging 07/28/2016 8:16 AM EST Narrative 08/23/2017 12:30 PM EST This is a summary report. The complete report is available in the patient's medical record. If you cannot access the medical record, please contact the sending organization for a detailed fax or copy. Full field digital screening mammography, reviewed with CAD and compared to previous. The breasts are composed of fatty and fibroglandular tissue. No suspicious mass, architectural distortion or suspicious calcifications are identified. IMPRESSION: : No mammographic evidence of malignancy. BIRADS 1-Negative; N. 5 year breast cancer risk assessment 0.5 % Lifetime breast cancer risk assessment 4.6 % Breast cancer risk category Low (<15%) Procedure Note Alcides Amin MD - 09/01/2023 This is a summary report. The complete report is available in thepatient's medical record. If you cannot access the medical record, pleasecontact the sending organization for a detailed fax or copy. Full field digital screening mammography, reviewed with CAD and comparedto previous. The breasts are composed of fatty and fibroglandular tissue.No suspicious mass, architectural distortion or suspicious calcificationsare identified. IMPRESSION: : No mammographic evidence of malignancy. BIRADS 1-Negative; N. 5 year breast cancer risk assessment 0.5 % Lifetime breast cancer risk assessment 4.6 % Breast cancer risk category Low (<15%) us Clarissa Cook MD IMG XR PROCEDURES Final Resul t from Last 3 Months or Most Recently Relevant to Health Maintenance Care Teams Weir Fisher Relationship Specialty Start Date End Date Irene Barba MD [address] [place] [address] PCP - General 12/19/22
--- OUTSIDE RECORDS SUMMARY | 2025-02-27 10:49 | XMS_ITS | Encounter Summary ---
Author Organization [facility] Address [address] [place] [address] [address] [place] [address] Care Team Providers Care Roof Designer Name Role Phone Irene Barba MD Primary Care Provider [phone] Reason for Visit * Reason Onset Date Comments Med Refill 11/08/2023 Encounter Details Date Type Department Care Team ([facility] st Contact Info) Description 11/08/2023 Refill [facility] [address] [place], [place] [id number] Irene Barba MD [address] [place] [address] Social History Tobacco Use Types Packs/Day Years Used Date Smoking Tobacco: Former Cigarettes 1.5 18 0 07/31/1977 - 07/31/1995 Passive Smoke Exposure: Never Smokeless Tobacco: Never Alcohol Use Standard Drinks/Week Comments Never 0 (1 standard drink = 0.6 oz pur e alcohol) Depression Answer Date Recorded Patient Health Questionnaire-9 Score 2 10/31/2022 Housing Stability Answer Date Recorded What is your housing situation today? I have leonardoneva glover 05/18/[address] you li ve. Do you have problems with any of the following? None of the above 05/18/2023 Food Insecurity Answer Date Recorded Within the past 12 months, y ou worried that your food would run out before you got money to buy more: Never True 05/18/2023 Within the past 12 months,th e food you bought just didn't last and you didn't have enough money to get more: Never True Transportation Answer Date Recorded In the past 12 months, has l ack of transportation kept you from medical appts, meetings, work or from getting things needed for daily living? No 05/18/2023 Utilities Answer Date Recorded In the past 12 months, has t he electric, gas, oil or water company threatened to shut off services in your home? No 05/18/2023 Depression Answer Date Recorded Patient Health Questionnaire-2 Score 2 10/31/2022 Comments Unknown Sex and Gender Information Value Date Recorded Sex Assigned at Female 05/30/2022 10:27 AM EDT Legal Sex Female 10:27 AM EDT Gender Identity Female 05/30/2022 10:27 AM EDT Sexual Orientation Straight 05/30/2022 10 :27 AM EDT documented as of this encounter Plan of Treatment Not on file documented as of this encounter Visit Diagnoses Not on filedocumented in this encounter Additional Health Concerns Assessment Noted Time PHQ-9 Depression Total Score: 2 11/01/19 23 2:22 PM EDT documented as of this encounter Care Teams Roof Designer Relationship Specialty Start Date End Date Irene Barba MD [address] [place] [id number] PCP - General Family Medicine 02/23/21 JACQUELYN Leslie Psychiatrist Mental Health 09/22/23 documented as of this encounter
[2025-02-27 14:08] LABS: MANUAL DIFF FLAG NO
[2025-02-27 14:24] LABS: Hematocrit 37.6 % (37.0-47.0); Hemoglobin 12.7 g/dl (12.0-16.0); Imm Gran Abs Auto 0.03 X10*3/uL (0.00-0.03); Imm Gran Pct Auto 0.6 % (0.0-0.4); Lymphocytes Absolute Auto 2.9 X10*3/uL (1.2-4.9); Mean Corpuscular HGB Conc 33.8 g/dl (31.0-35.0); Mean Corpuscular Hemoglobin 30.5 pg (27.0-33.0); Mean Corpuscular Volume 90.2 fL (80.0-98.0); NRBC Abs Auto 0.000 X10*3/uL (0.0-0.012); NRBC Pct Auto 0.0 /100WBC (0.0-0.2); Platelet Count 284 X10*3/uL (160-400); Red Blood Count 4.17 X10*6/uL (4.20-5.50); White Blood Count 5.5 X10*3/uL (4.8-10.8)
[2025-02-27 14:40] LABS: Alanine Aminotransferase 21 U/L (0-31); Albumin Level 4.0 g/dL (3.5-5.0); Alkaline Phosphatase 85 U/L (39-117); Anion Gap 11 (12-20); Aspartate Amino Transferase 27 U/L (5-31); Blood Urea Nitrogen 7 mg/dL (9-16); Calcium 8.7 mg/dL (8.4-10.2); Carbon Dioxide 29 mmol/L (22-29); Chloride 106 mmol/L (96-108); Cholesterol 197 mg/dL (<200); Estimated Glomerular Filt Rate > 60; HDL Cholesterol 39 mg/dL (>40); Potassium 3.8 mmol/L (3.3-5.1); Sodium 142 mmol/L (135-145); Total Protein 6.7 g/dL (6.5-8.0); Triglycerides 304 mg/dL (<150)
== END 2025-02-27 10:06 | disposition home or self-care (01) ==
LOC: HO.CHCLDS 10:05
PROVIDERS: Visit Provider Family Medicine
DX: Z68.30 Body mass index [BMI] 30.0-30.9, adult (principal); E66.811 Obesity, class 1
CPT/HCPCS: 36415; 80053; 80061; 84443; 85025

== ENCOUNTER 2025-03-20 11:28 | Outpatient (REF) | payer MEDICAID, SELFPAY | END 2025-03-20 11:29 | disposition home or self-care (01) | LOC: HO.MAMMO 11:28 | PROVIDERS: PCP Family Medicine; Visit Provider Family Medicine | DX: Z12.31 Encounter for screening mammogram for malignant neoplasm of breast (principal) | CPT/HCPCS: 77063; 77067 ==

== ENCOUNTER → 2025-03-20 11:45 | Outpatient (BNV) | payer MEDICAID, SELFPAY | PROVIDERS: PCP Family Medicine; Visit Provider Internal Medicine | DX: Z12.31 Encounter for screening mammogram for malignant neoplasm of breast (principal) | CPT/HCPCS: 77063; 77067 ==

== ENCOUNTER 2025-04-21 12:10 | Outpatient (REF) | payer MEDICAID, SELFPAY ==
--- NOTE | ~2025-04-21 | XR_ITS ---
EXAMINATION: XR ANKLE, LEFT CLINICAL INFORMATION: persistent left ankle pain COMPARISON: None available. TECHNIQUE: AP, lateral, and mortise views of the left ankle. FINDINGS: No fracture. Alignment is anatomic. No erosions. Joint spaces are maintained. Soft tissues are normal. XR/XR ankle LT min 3V IMPRESSION: Normal left ankle. Electronically signed by: Bruce Abernathy MD 04/21/2025 12:27 PM EDT
--- OUTSIDE RECORDS SUMMARY | 2025-04-21 14:50 | XMS_ITS | Encounter Summary ---
Demographics Address [address] [place] [address] [place] [address] Home Phone Work Phone Mobile Phone [email or web address]
--- OUTSIDE RECORDS SUMMARY | 2025-04-21 14:51 | XMS_ITS | Encounter Summary ---
Author
== END 2025-04-21 12:11 | disposition home or self-care (01) ==
LOC: HO.XRAY 12:10
PROVIDERS: PCP Family Medicine; Visit Provider Pediatrics
DX: M25.572 Pain in left ankle and joints of left foot (principal)
CPT/HCPCS: 73610

== ENCOUNTER → 2025-04-21 12:13 | Outpatient (BNV) | payer MEDICAID, SELFPAY | PROVIDERS: PCP Family Medicine; Visit Provider Radiology Diagnostic Radiology | DX: M25.572 Pain in left ankle and joints of left foot (principal) | CPT/HCPCS: 73610 ==

== ENCOUNTER 2025-05-01 08:37 | Outpatient (AMB) | payer MEDICAID, SELFPAY ==
--- NOTE | 2025-05-01 08:41 | A.OFFVIS_ITS ---
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: Migraine Variant with Headaches [employer] Required: Yes [employer] Services: [employer] Present [employer] Name: Arely ID [id number] Information Interpreted: non-clinical & clinical Allergies NSAIDS (Non-Steroidal Anti-Inflamma Adverse Reaction (Mild, Verified 08/16/24 10:48) Unknown Sulfa (Sulfonamide Antibiotics) Adverse Reaction (Mild, Verified 08/16/24 10:48) rash sulfacetamide Adverse Reaction (Mild, Verified 08/16/24 10:48) Unknown sulfadiazine Adverse Reaction (Mild, Verified 08/16/24 10:48) Unknown HPI Comments Details: Celia is a 60-year-old female patient with a past medical history of cervical myofascial pain syndrome, neck pain, insomnia, restless leg, constipation, hyperlipidemia, sleep apnea, and paresthesias who is referred to the clinic for a headache evaluation. It appears that she is currently on topiramate 100 mg nightly, and verapamil 20 mg twice daily. She also has a prescription for sumat riptan 100 mg as needed. The patient tells me today that she has been experiencing headaches since she was a child. She did not recieve treatment for her headaches until adulthood. She is currently experiencing a severe headache on average 3 times per month but the headaches can last up to 4 days (12 severe headaches per month. Her pain is generally frontal and temporal and is typically bilateral. Her pain is felt as a pounding sensation. Her headaches are accompanied by sound sensitivity but she denies light sensitivity, dizziness, or nausea. She does however describe 3 episodes of vision changes described as waves or crystals in the center of her vision. Her visual symptoms lasted about 25 minutes each time. She is currently taking topiramate 100mg at bedtime. She tells me that this was originally prescribed by her psychiatrist. She has not noticed that it helps with her headaches. She also takes verapamil but she believes that she takes it for other reasons and she has not noticed that it helps her headaches. She is prescribed sumatriptan 100mg for abortive therapy which she has found helpful to calm down her headaches . She also has a prescription for fioricet which she she uses very sparingly in cases of dire need if her sumatriptan does not work for her. She also brings up another concern today including her restless leg symptoms. She was on gabapentin in the past but remembers having some side-effects with this. She is currently on nupro transdermal patch which she feels has been at least somewhat beneficial. She wonders if her RLS has anything to do with her migraine headaches. She also mentions that she had a sleep study last week at [facility] but has not yet gotten the results of this. She is getting the nupro through her primary care who also ordered the sleep study. Headache characteristics: Time of onset: Childhood Location: Frontal and parietal Radiation:No Positional component:No Character: Pounding Severity:Can impact day-to-day finctioning Duration: Up to 4 days Frequency:3 episodes per month Acute aggravating factors:Not that she is aware of Acute relieving factors: Laying down to rest Associated symptoms:Sound sensitivity and visual disturbances Aura:Yes, waves or crystals in vision Headache triggers:No Relation to menses:No Other related background information: Sleep: She has a history of insomnia and takes seroquil which helps her Stressors: Reports some stress at home but her medications help to reduce her stress Hydration: Admits to poor hydration. Maybe 1 bottle of water per day Caffeine intake:4 cups of coffee per day Alcohol intake:No Substance use:No Tobacco use:No Last eye exam: Within the last year Last dental visit: Within the last month. Does note some clicking in her jaw History of head injury: No Past medication trials: Topiramate- Currently takine 100mg nightly for moods without any headache benefit Prior workup: [facility] Medical History (Updated 05/01/25 @ 09:41 by Neema Muñoz CNP) Alopecia Numbness and tingling of both feet ANNAMARIA (obstructive sleep apnea) Other hyperlipidemia Cervical pain RLS (restless legs syndrome) Insomnia Vaughn-Lucien disease Cervical myofascial pain syndrome Migraine Social History Alcohol intake: never Patient Tobacco Use Status: Former Tobacco user Tobacco use type: Cigarette Review of Systems Const All systems reviewed & are unremarkable except as noted in HPI and below Physical Exam Const General: cooperative, healthy appearing, comfortable and no acute distress Nutritional Appearance: well nourished Orientation/consciousness: patient oriented x3 Limitations: no limitations HEENT Head: Yes normal to inspection and Yes normocephalic Eyes General: appearance normal, both eyes and all related structures Visual Guillen: normal visual guillen by confrontation Alignment and Position: alignment normal Periorbital: periorbital findings normal Eyelids: Yes eyelids normal Conjunctivae: conjunctivae normal Sclerae: sclerae normal Back/Spine/Pelvis Other: Bilateral trapezius tightening without trigger points. No occipital notch tenderness. Neuro General: patient oriented x3, tone normal and deep tendon reflexes 2+ bilaterally Cranial nerves: Yes CN's II-XII intact bilaterally and Yes Facial sensation intact/muscles of mastication intact Cognition (Neuro): normal cognition Gait exam (Neuro): Normal gait present Motor exam (neuro): 5/5 motor strength present throughout and no tremor noted Sensory Exam: double simultaneous stimulation for sensation normal Romberg Test: Negative Pupils: Normal pupillary reactivity/response: bilateral Psych Appearance: grossly normal Mental Status: mental status grossly normal Speech and movement: Normal speech and movement present and Clear speech present Affect: normal affect Attitude: cooperative Thought process: Normal thought process present Thought content: Normal thought content present Insight: Good insight present (Psych) Judgement: Good judgement present (Psych) Assessment & Plan Assessment & Plan (1) Migraine with aura and without status migrainosus, not intractable: Code(s): G43.109 - Migraine with aura, not intractable, without status migrainosus Category: Medical Plan Celia is a 60-year-old female patient with a past medical history of cervical myofascial pain syndrome, neck pain, insomnia, restless leg, constipation, hyperlipidemia, sleep apnea, and paresthesias who is referred to the clinic for a headache evaluation. Headaches described are consistent with migraine. She is currently experiencing an average of 12 severe headache days month despite the use of topiramate, verapamil, sertraline, and buproprion. At this point, given concurrent use of the above-listed medications, and she is not a good candidate for tricyclic antidepressants or beta-blockers. She is already on topiramate without any significant effect. I have recommend a trial of a once monthly anti CGRP injectable. We reviewed these options in depth. She is agreeable. I used the demonstration pen for teaching today. I will send the request for a trial of Emgality. We can not use Aimovig given history of constipation. She can continue on the sumatriptan 100 mg as needed for acute therapy which I did explain may work more effectively once we have better control her migraines from a preventative standpoint. I also counseled her on reducing her caffeine intake and increasing her water intake. These measures alone may improve her headaches. RLS- awaiting sleep study results. Currently taking Nupro transdermally through primary care. I have encouraged her to continue with primary care for management her restless legs. Happy to make recommendations on this if primary care would like Neurology input. For now however, it seems like treatment and workup are appropriate -trial of emgality 240mg sc loading dose and then 120mg sc monthly -continue sumatriptan 100mg as needed for acute therapy -reduce caffeine intake -increase water. -follow-up in 2 months or sooner if needed -she would also like to make an appointment with me for her first dose on emgality for assistance and teaching Coding Level of Care Code New Pt Level 4 (26325) Diagnoses Migraine with aura and without status migrainosus, not intractable G43.109
[2025-05-01 08:51] VITALS: BP 126/82; PULSE 68; RESP 16; O2SAT 98; BMI 29.7
--- OUTSIDE RECORDS SUMMARY | 2025-05-01 08:56 | XMS_ITS | Encounter Summary ---
Author Organization [employer] Address [address] [place] [address] 7 [place] [address] Care Team Providers Care Tank Stave Assembler Name Role Phone Irene Barba MD Primary Care Provider Reason for Visit * Reason Onset Date Comments Med Refill 11/30/2023 Encounter Details Date Type Department Care Team ([facility] st Contact Info) Description 11/30/2023 Refill [facility] MED & PEDS [address] [place], [place] [phone] Irene Barba MD [address] [place] [address] Migraine variant with headache Social History Tobacco Use Types Packs/Day Years [...] as of this encounter Plan of Treatment Upcoming Encounters Date Type Department Care Team (Late st Contact Info) Description 05/05/2025 10:00 AM EDT Office Visit [facility] MED & PEDS [address] [place] [address] Irene Barba MD [address] [place] [address] 06/03/2025 9:45 AM EST Office Visit [facility] MED & PEDS [address] [place] [address] Nohelia Monique MD [address] [place] [address] documented as of this encounter Visit Diagnoses Diagnosis Migraine variant with headache documented in this encounter Additional Health Concerns Assessment Noted Time PHQ-9 Depression Total Score: 2 11/01/19 23 2:22 PM EDT documented as of this encounter Care Teams Tank Stave Assembler Relationship Specialty Start Date End Date Irene Barba MD [address] [place] [address] PCP - General Family Medicine 02/23/21 JACQUELYN Leslie Psychiatrist Mental Health 09/22/23 documented as of this encounter
--- OUTSIDE RECORDS SUMMARY | 2025-05-01 08:56 | XMS_ITS | Encounter Summary ---
Author Organization [employer] Address [address] [place] [address] 7 [place] [address] Care Team Providers Care High School Counselor Name Role Phone Irene Barba MD Primary Care Provider [phone] Reason for Visit * Reason Onset Date Comments Med Refill 11/08/2023 Encounter Details Date Type Department Care Team ([facility] st Contact Info) Description 11/08/2023 Refill [facility] MED & PEDS [address] [place], [place] [phone] Irene Barba MD [address] [place] [address] Social History Tobacco Use Types Packs/Day Years [...] Description 05/05/2025 10:00 AM EDT Office Visit [facility] MED & PEDS [address] [place] [address] Irene Barba MD [address] [place] [address] 06/03/2025 9:45 AM EST Office Visit [facility] MED & PEDS [address] [place] [address] Nohelia Monique MD [address] [place] [address] documented as of this encounter Visit Diagnoses Not on filedocumented in this encounter Additional Health Concerns Assessment Noted Time PHQ-9 Depression Total Score: 2 11/01/19 23 2:22 PM EDT documented as of this encounter Care Teams High School Counselor Relationship Specialty Start Date End Date Irene Barba MD [address] [place] [address] PCP - General Family Medicine 02/23/21 JACQUELYN Leslie Psychiatrist Mental Health 09/22/23 documented as of this encounter
--- OUTSIDE RECORDS SUMMARY | 2025-05-01 08:56 | XMS_ITS | Encounter Summary ---
Author Organization [employer] Address [address] [facility] 7 [place] [address] Care Team Providers Care Collections Manager Name Role Phone Irene Barba MD Primary Care Provider [phone] Reason for Visit * Reason Comments Med Refill Encounter Details Date Type Department Care Team ([facility] st Contact Info) Description 12/14/2023 Refill [facility] MED & PEDS [address] [place], [place] [phone] Irene Barba MD [address] [place], [place] [phone] Social History Tobacco Use Types Packs/Day Years [...] Description 05/05/2025 10:00 AM EDT Office Visit [facility] MED & PEDS [address] [place] [address] Irene Barba MD [address] [place] [address] 06/03/2025 9:45 AM EST Office Visit [facility] MED & PEDS [address] [place] [address] Nohelia Monique MD [address] [place] [address] documented as of this encounter Visit Diagnoses Not on filedocumented in this encounter Additional Health Concerns Assessment Noted Time PHQ-9 Depression Total Score: 2 11/01/19 23 2:22 PM EDT documented as of this encounter Care Teams Collections Manager Relationship Specialty Start Date End Date Irene Barba MD [address] [place] [address] PCP - General Family Medicine 02/23/21 JACQUELYN Leslie Psychiatrist Mental Health 09/22/23 documented as of this encounter
--- OUTSIDE RECORDS SUMMARY | 2025-05-01 08:56 | XMS_ITS | Encounter Summary ---
Author Organization [employer] Address [address] [place] [address] 7 [place] [address] Care Team Providers Care Jewel Corner Brushing Machine Operator Name Role Phone Irene Barba MD Primary Care Provider [phone] Reason for Visit * Reason Onset Date Comments Med Refill 12/13/2023 Encounter Details Date Type Department Care Team ([facility] st Contact Info) Description 12/13/2023 Refill [facility] MED & PEDS [address] [place], [place] [phone] Irene Barba MD [address] [place] [address] Migraine variant with headache Social History Tobacco [...] Description 05/05/2025 10:00 AM EDT Office Visit [facility] MED & PEDS [address] [place] [address] Irene Barba MD [address] [place] [address] 06/03/2025 9:45 AM EST Office Visit [facility] MED & PEDS [address] [place] [address] Nohelia Monique MD [address] [place] [address] documented as of this encounter Visit Diagnoses Diagnosis Migraine variant with headache documented in this encounter Additional Health Concerns Assessment Noted Time PHQ-9 Depression Total Score: 2 11/01/19 23 2:22 PM EDT documented as of this encounter Care Teams Jewel Corner Brushing Machine Operator Relationship Specialty Start Date End Date Irene Barba MD [address] [place] [address] PCP - General Family Medicine 02/23/21 JACQUELYN Leslie Psychiatrist Mental Health 09/22/23 documented as of this encounter
--- OUTSIDE RECORDS SUMMARY | 2025-05-01 08:57 | XMS_ITS | Encounter Summary ---
Author Organization [employer] Address [address] [place] [address] [address] Care Team Providers Care Sign Erector And Repairer Name Role Phone Irene Barba MD Primary Care Provider [phone] Encounter Details Date Type Department Care Team (Late Contact Info) Description 02/17/2023 Orders Only [facility] MEDICINE [address] [place], [place] [phone] Jenny Treviño MD [address] [place], [place] [phone] Primary insomnia (Primary Dx) Social History Tobacco Use Types Packs/Day Years Used Date Smoking Tobacco: Former Cigarettes 1.5 18 0 07/31/1977 - 07/31/1995 Passive Smoke Exposure: Never Smokeless Tobacco: Never Alcohol Use Standard Drinks/Week Comments Never 0 (1 standard drink = 0.6 oz pur e alcohol) Depression Answer Date Recorded Patient Health Questionnaire-9 Score 2 10/31/2022 Depression Answer Date Recorded Patient Health Questionnaire-2 [...] Encounters Date Type Department Care Team (Late Contact Info) Description 05/05/2025 10:00 AM EDT Office Visit [facility] MED & PEDS [address] [place], [place] [phone] Irene Barba MD [address] [place] [address] 06/03/2025 9:45 AM EST Office Visit [facility] MED & PEDS [address] [place] [address] Nohelia Monique MD [address] [place] [address] documented as of this encounter Visit Diagnoses Diagnosis Primary insomnia- Primary Persistent disorder of initiating or maintaining sleep documented in this encounter Additional Health Concerns Assessment Noted Time PHQ-9 Depression Total Score: 2 11/01/19 23 2:22 PM EDT documented as of this encounter Care Teams Sign Erector And Repairer Relationship Specialty Start Date End Date Irene Barba MD [address] [place] [address] PCP - General Family Medicine 02/23/21 JACQUELYN Leslie Psychiatrist Mental Health 09/22/23 documented as of this encounter
--- OUTSIDE RECORDS SUMMARY | 2025-05-01 08:57 | XMS_ITS | Encounter Summary ---
Author Organization [employer] Address [address] [place] [address] Care Team Providers Care Commodity Trader Name Role Phone Irene Barba MD Primary Care Provider [phone] Encounter Details Date Type Department Care Team (Late Contact Info) Description 07/28/2022 Orders Only [facility] MEDICINE [address] [place] [address] Adiel Arteaga, PharmD [address] [place] [address] Social History Tobacco Use Types Packs/Day Years Used Date Smoking Tobacco: Never Assessed Comments Unknown Sex and Gender Information Value Date Recorded Sex Assigned at Female 05/30/2022 10:27 AM EDT Legal Sex Female 10:27 AM EDT Gender Identity Female 05/30/2022 10:27 AM EDT Sexual Orientation Straight 05/30/2022 10 :27 AM EDT documented as of this encounter Plan of Treatment Upcoming Encounters Date Type Department Care Team (Late Contact Info) Description 05/05/2025 10:00 AM EDT Office Visit [facility] MED & PEDS [address] [place], [place] [phone] Irene Barba MD [address] [place], [place] [phone] 06/03/2025 9:45 AM EST Office Visit [facility] MED & PEDS [address] [place], [place] [phone] Nohelia Monique MD [address] [place] [address] documented as of this encounter Visit Diagnoses Not on filedocumented in this encounter Care Teams Commodity Trader Relationship Specialty Start Date End Date Irene Barba MD [address] [place] [address] PCP - General Family Medicine 02/23/21 JACQUELYN Leslie Psychiatrist Mental Health 09/22/23 documented as of this encounter
--- OUTSIDE RECORDS SUMMARY | 2025-05-01 08:57 | XMS_ITS | Encounter Summary ---
Author Organization [employer] Address [address] [place] [address] 7 [place] [address] Care Team Providers Care Photograph Enlarger Name Role Phone Irene Barba MD Primary Care Provider [phone] Encounter Details Date Type Department Care Team ([facility] Contact Info) Description 04/23/2025 Results Follow-Up [facility] MED & PEDS [address] [place], [place] [phone] Gissell Bearden MD [address] [place], [place] [phone] XR Ankle 3+ Views Left Social History Tobacco Use Types Packs/Day Years Used Date Smoking Tobacco: Former Cigarettes 1.5 18 0 07/31/1977 - 07/31/1995 Passive Smoke Exposure: Never Smokeless Tobacco: Never Alcohol Use Standard Drinks/Week Comments Never 0 (1 standard drink = 0.6 oz pur e alcohol) Depression Answer Date Recorded Patient Health Questionnaire-9 Score 7 02/17/2025 Patient Health Questionnaire-9 Score 7 02/17/2025 Last PHQ-9: Questionnaire Data Not on file 0 02/17/2025 Housing Stability Answer Date Recorded What is your housing situation today? I have leonardo glover 01/02/[address] you li ve. Do you have problems with any of the following? None of the above 01/02/2025 Food Insecurity Answer Date Recorded Within the past 12 months, y ou worried that your food would run out before you got money to buy more: Never True 01/02/2025 Within the past 12 months,th e food you bought just didn't last and you didn't have enough money to get more: Never True 11/2024 Transportation Answer Date Recorded In the past 12 months, has l ack of transportation kept you from medical appts, meetings, work or from getting things needed for daily living? No 01/02/2025 Utilities Answer Date Recorded In the past 12 months, has t he electric, gas, oil or water company threatened to shut off services in your home? No 01/02/2025 Depression Answer Date Recorded Patient Health Questionnaire-2 Score 0 02/17/2025 Internet Access Answer Date Recorded Internet Access Q1 Yes 01/02/2025 Internet Access Q2 Not on file 01/02/2025 Comments Unknown Sex and Gender Information Value [...] Description 05/05/2025 10:00 AM EDT Office Visit [facility] MED & PEDS [address] [place] [address] Irene Barba MD [address] [place] [address] 06/03/2025 9:45 AM EST Office Visit [facility] MED & PEDS [address] [place] [address] Nohelia Monique MD [address] [place] [address] documented as of this encounter Visit Diagnoses Not on filedocumented in this encounter Additional Health Concerns Assessment Noted Time PHQ-9 Depression Total Score: 7 02/18/20 25 2:52 PM EDT documented as of this encounter Care Teams Photograph Enlarger Relationship Specialty Start Date End Date Irene Barba MD [address] [place] [address] PCP - General Family Medicine 02/23/21 JACQUELYN Leslie Psychiatrist Mental Health 09/22/23 documented as of this encounter
--- OUTSIDE RECORDS SUMMARY | 2025-05-01 08:57 | XMS_ITS | Encounter Summary ---
Author Organization [employer] Address [address] [facility] 7 [place] [address] Care Team Providers Care Bus Attendant Name Role Phone Irene Barba MD Primary Care Provider [phone] Reason for Visit * Reason Onset Date Comments Prior Authorization 05/30/2023 Encounter Details Date Type Department Care Team ([facility] [address] Contact Info) Description 05/30/2023 Telephone [facility] MEDICINE [address] [place] [address] Irene Barba MD [address] [place], [place] [phone] Prior Authorization Social History Tobacco Use Types Packs/Day Years [...] AM EDT documented as of this encounter Miscellaneous Notes * Telephone Encounter - Mina Sumner - 05/30/2023 10:56 AM EDT Tc from patient requesting status of medication [id number] (Fiorinal) 50-325-40 [facility] on [facility]. documented in this encounter Plan of Treatment Upcoming Encounters Date Type Department Care Team (Late st Contact Info) Description 05/05/2025 10:00 AM EDT Office Visit [facility] MED & PEDS [address] [place] [address] Irene Barba MD [address] [place] [address] 06/03/2025 9:45 AM EST Office Visit [facility] MED & PEDS [address] [place] [address] Nohelia Monique MD [address] [place] [address] documented as of this encounter Visit Diagnoses Not on filedocumented in this encounter Additional Health Concerns Assessment Noted Time PHQ-9 Depression Total Score: 2 11/01/19 23 2:22 PM EDT documented as of this encounter Care Teams Bus Attendant Relationship Specialty Start Date End Date Irene Barba MD [address] [place] [address] PCP - General Family Medicine 02/23/21 JACQUELYN Leslie Psychiatrist Mental Health 09/22/23 documented as of this encounter
--- OUTSIDE RECORDS SUMMARY | 2025-05-01 08:57 | XMS_ITS | Encounter Summary ---
Author Organization [employer] Address [address] [facility] 7 [place] [address] Care Team Providers Care Waste Transportation Technician Name Role Phone Irene Barba MD Primary Care Provider [phone] Reason for Visit * Reason Comments Med Refill Encounter Details Date Type Department Care Team ([facility] st Contact Info) Description 09/14/2023 Refill [facility] MED & PEDS [address] [place], [place] [phone] Irene Barba MD [address] [place], [place] [phone] Neck pain on left side; Migraine variant with headache Social History Tobacco [...] housing situation today? I have leonardo glover 05/18/[address] you [...] Description 05/05/2025 10:00 AM EDT Office Visit [facility] MED & PEDS [address] [place] [address] Irene Barba MD [address] [place] [address] 06/03/2025 9:45 AM EST Office Visit [facility] [address] [place] [address] Nohelia Monique MD 505 [place] [address] documented as of this encounter Visit Diagnoses Diagnosis Neck pain on left side Migraine variant with headache documented in this encounter Additional Health Concerns Assessment Noted Time PHQ-9 Depression Total Score: 2 11/01/19 23 2:22 PM EDT documented as of this encounter Care Teams Waste Transportation Technician Relationship Specialty Start Date End Date Irene Barba MD [address] [place] [address] PCP - General Family Medicine 02/23/21 JACQUELYN Leslie Psychiatrist Mental Health 09/22/23 documented as of this encounter
--- OUTSIDE RECORDS SUMMARY | 2025-05-01 08:57 | XMS_ITS | Encounter Summary ---
Author Organization [employer] Address [address] [place] [address] 7 [place] [address] Care Team Providers Care Cushion Installer Name Role Phone Irene Barba MD Primary Care Provider [phone] Reason for Visit * Reason Onset Date Comments Med Refill 08/20/2024 Encounter Details Date Type Department Care Team ([facility] Contact Info) Description 08/20/2024 Refill [facility] MED & PEDS [address] [place], [place] [phone] Irene Barba MD [address] [place] [address] Social History Tobacco Use Types Packs/Day Years Used Date Smoking Tobacco: Former Cigarettes 1.5 18 0 07/31/1977 - 07/31/1995 Passive Smoke Exposure: Never Smokeless Tobacco: Never Alcohol Use Standard Drinks/Week Comments Never 0 (1 standard drink = 0.6 oz pur e alcohol) Depression Answer Date Recorded Patient Health Questionnaire-9 Score 0 02/08/2024 Patient Health Questionnaire-9 Score 0 02/08/2024 Last PHQ-9: Questionnaire Data Not on file 0 02/08/2024 Housing Stability Answer Date Recorded What is [...] Date Recorded Patient Health Questionnaire-2 Score 0 02/08/2024 Comments Unknown Sex and Gender Information Value [...] Description 05/05/2025 10:00 AM EDT Office Visit [facility] MED & PEDS [address] [place] [address] Irene Barba MD [address] [place] [address] 06/03/2025 9:45 AM EST Office Visit [facility] MED & PEDS [address] [place] [address] Nohelia Monique MD 505 [place] [address] documented as of this encounter Visit Diagnoses Not on filedocumented in this encounter Additional Health Concerns Assessment Noted Time PHQ-9 Depression Total Score: 0 02/08/20 24 2:46 PM EDT documented as of this encounter Care Teams Cushion Installer Relationship Specialty Start Date End Date Irene Barba MD [address] [place] [address] PCP - General Family Medicine 02/23/21 JACQUELYN Leslie Psychiatrist Mental Health 09/22/23 documented as of this encounter
--- OUTSIDE RECORDS SUMMARY | 2025-05-01 08:57 | XMS_ITS | Encounter Summary ---
Author Organization [employer] Address [address] [place] [address] 7 [place] [address] Care Team Providers Care Natural Sciences Professor Name Role Phone Irene Barba MD Primary Care Provider [phone] Reason for Visit * Reason Onset Date Comments Med Refill 05/17/2024 Encounter Details Date Type Department Care Team ([facility] Contact Info) Description 05/17/2024 Refill [facility] MED & PEDS [address] [place], [place] [phone] Irene Barba MD [address] [place] [address] Social History Tobacco Use Types Packs/Day Years [...] 10:00 AM EDT Office Visit [facility] MED & PEDS [address] [place] [address] Irene Barba MD [address] [place] [address] 06/03/2025 9:45 AM EST Office Visit [facility] MED & PEDS [address] [place] [address] Nohelia Monique MD 505 [place] [address] documented as of this encounter Visit Diagnoses Not on filedocumented in this encounter Additional Health Concerns Assessment Noted Time PHQ-9 Depression Total Score: 0 02/08/20 24 2:46 PM EDT documented as of this encounter Care Teams Natural Sciences Professor Relationship Specialty Start Date End Date Irene Barba MD [address] [place] [address] PCP - General Family Medicine 02/23/21 JACQUELYN Leslie Psychiatrist Mental Health 09/22/23 documented as of this encounter
--- OUTSIDE RECORDS SUMMARY | 2025-05-01 08:57 | XMS_ITS | Clinical Summary ---
Author Organization [facility] Address [address] [place] [address] Care Team Providers Care Instrumental Music Teacher Name Role Phone Unavailable Primary Care Provider [...] 2017 Imm-Zoster, Recombinant (1 of 2) 2017 Alcohol and Drug Screen 07/31/2024 Depression Annual Screen 07/31/2024 [id number] ( season) 2025 08/02/2021, 12/16/2020, 11/25/2020 Imm-Influenza (#1) 2025 06/01/2015, 1 08/01/2014, 06/09/2014, Additional history exists Imm-DTaP/Tdap/Td (3 - Td or Tdap) 08/05/2025 016, 03/24/2014 Cervical Ablation/Cold-Knife Conization Discontinued Cervical Cryotherapy Discontinued Colposcopy Discontinued Endometrial Biopsy Discontinued Excision/Leep Discontinued HPV Genotyping Discontinued Vaginal Pap Discontinued Vulvoscopy Discontinued Insurance [employer] [address] [employer]
--- OUTSIDE RECORDS SUMMARY | 2025-05-01 08:57 | XMS_ITS | Encounter Summary ---
Author Organization [employer] Address [address] [facility] 7t [place] [address] Care Team Providers Care Lace Sewer Name Role Phone Irene Barba MD Primary Care Provider [phone] Encounter Details Date Type Department Care Team ([facility] st Contact Info) Description 02/19/[address] [facility] MEDICINE [address] [place], [place] [phone] Irene Barba MD [address] [place], [place] [phone] Social History Tobacco Use Types Packs/Day Years [...] Description 05/05/2025 10:00 AM EDT Office Visit [facility] MED & PEDS [address] [place] [address] Irene Barba MD [address] [place] [address] 06/03/2025 9:45 AM EST Office Visit [facility] MED & PEDS [address] [place] [address] Nohelia Monique MD [address] [place] [address] documented as of this encounter Visit Diagnoses Not on filedocumented in this encounter Additional Health Concerns Assessment Noted Time PHQ-9 Depression Total Score: 0 02/08/20 24 2:46 PM EDT documented as of this encounter Care Teams Lace Sewer Relationship Specialty Start Date End Date Irene Barba MD [address] [place] [address] PCP - General Family Medicine 02/23/21 JACQUELYN Leslie Psychiatrist Mental Health 09/22/23 documented as of this encounter
--- OUTSIDE RECORDS SUMMARY | 2025-05-01 08:57 | XMS_ITS | Encounter Summary ---
Author Organization [employer] Address [address] [place] [address] 7 [place] [address] Care Team Providers Care Ice Bag Assembler Name Role Phone Irene Barba MD Primary Care Provider [phone] Reason for Visit * Reason Onset Date Comments Med Refill 08/20/2024 Encounter Details Date Type Department Care Team ([facility] Contact Info) Description 08/20/2024 Refill [facility] MED & PEDS [address] [place], [place] [phone] Irene Barba MD [address] [place] [address] Social History Tobacco Use Types Packs/Day Years [...] Description 05/05/2025 10:00 AM EDT Office Visit [facility] MED & PEDS [address] [place] [address] Irene Barba MD [address] [place] [address] 06/03/2025 9:45 AM EST Office Visit [facility] MED & PEDS [address] [place] [address] Nohelia Monique MD 505 [place] [address] documented as of this encounter Visit Diagnoses Not on filedocumented in this encounter Additional Health Concerns Assessment Noted Time PHQ-9 Depression Total Score: 0 02/08/20 24 2:46 PM EDT documented as of this encounter Care Teams Ice Bag Assembler Relationship Specialty Start Date End Date Irene Barba MD [address] [place] [address] PCP - General Family Medicine 02/23/21 JACQUELYN Leslie Psychiatrist Mental Health 09/22/23 documented as of this encounter
--- OUTSIDE RECORDS SUMMARY | 2025-05-01 08:57 | XMS_ITS | Encounter Summary ---
Author Organization [employer] Address [address] [place] [address] 7 [place] [address] Care Team Providers Care Robotics Engineer Name Role Phone Irene Barba MD Primary Care Provider [phone] Reason for Visit * Reason Onset Date Comments Med Refill 04/17/2025 Encounter Details Date Type Department Care Team ([facility] Contact Info) Description 04/17/2025 Refill [facility] MED & PEDS [address] [place], [place] [phone] Irene Barba MD [address] [place] [address] Social History Tobacco Use Types Packs/Day Years [...] Description 05/05/2025 10:00 AM EDT Office Visit [facility] MED & PEDS [address] [place] [address] Irene Barba MD [address] [place] [address] 06/03/2025 9:45 AM EST Office Visit [facility] MED & PEDS [address] [place] [address] Nohelia Monique MD [address] [place] [address] documented as of this encounter Visit Diagnoses Not on filedocumented in this encounter Additional Health Concerns Assessment Noted Time PHQ-9 Depression Total Score: 7 02/18/20 25 2:52 PM EDT documented as of this encounter Care Teams Robotics Engineer Relationship Specialty Start Date End Date Irene Barba MD [address] [place] [address] PCP - General Family Medicine 02/23/21 JACQUELYN Leslie Psychiatrist Mental Health 09/22/23 documented as of this encounter
--- OUTSIDE RECORDS SUMMARY | 2025-05-01 08:57 | XMS_ITS | Encounter Summary ---
Author Organization [employer] Address [address] [place] [address] 7 [place] [address] Care Team Providers Care Art Consultant Name Role Phone Irene Barba MD Primary Care Provider [phone] Reason for Visit * Reason Onset Date Comments Med Refill 05/17/2024 Encounter Details Date Type Department Care Team ([facility] Contact Info) Description 05/17/2024 Refill [facility] MED & PEDS [address] [place], [place] [phone] Irene Barba MD [address] [place] [address] Social History Tobacco Use Types Packs/Day Years [...] 10:00 AM EDT Office Visit [facility] MED & PEDS [address] [place] [address] Irene Barba MD [address] [place] [address] 06/03/2025 9:45 AM EST Office Visit [facility] MED & PEDS [address] [place] [address] Nohelia Monique MD [address] [place] [address] documented as of this encounter Visit Diagnoses Not on filedocumented in this encounter Additional Health Concerns Assessment Noted Time PHQ-9 Depression Total Score: 0 02/08/20 24 2:46 PM EDT documented as of this encounter Care Teams Art Consultant Relationship Specialty Start Date End Date Irene Barba MD [address] [place] [address] PCP - General Family Medicine 02/23/21 JACQUELYN Leslie Psychiatrist Mental Health 09/22/23 documented as of this encounter
--- OUTSIDE RECORDS SUMMARY | 2025-05-01 08:57 | XMS_ITS | Encounter Summary ---
Author Organization [employer] Address [address] [place] [address] Care Team Providers Care Sliver Cutter Name Role Phone Irene Barba MD Primary Care Provider [phone] Reason for Visit * Reason Onset Date Comments Med Refill 04/29/2025 Encounter Details Date Type Department Care Team ([facility] st Contact Info) Description 04/29/2025 Refill [facility] MED & PEDS [address] [place], [place] [phone] Nohelia Monique MD [address] [place], [place] [phone] Restless leg syndrome Social History Tobacco Use Types Packs/Day Years [...] [facility] [address] [place] [address] Irene Barba MD [address] [place] [address] 06/03/2025 9:45 AM EST Office Visit [facility] MED & PEDS [address] [place] [address] Nohelia Monique MD [address] [place] [address] documented as of this encounter Visit Diagnoses Diagnosis Restless leg syndrome Restless legs syndrome (RLS) documented in this encounter Additional Health Concerns Assessment Noted Time PHQ-9 Depression Total Score: 7 02/18/20 25 2:52 PM EDT documented as of this encounter Care Teams Sliver Cutter Relationship Specialty Start Date End Date Irene Barba MD [address] [place] [address] PCP - General Family Medicine 02/23/21 JACQUELYN Leslie Psychiatrist Mental Health 09/22/23 documented as of this encounter
--- OUTSIDE RECORDS SUMMARY | 2025-05-01 08:57 | XMS_ITS | Clinical Summary ---
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 Strong contraindication to all sulfa drugs. Sulfacetamide Rash High 02/01/2016 Sulfadiazine 08/11/2022 Medications traZODone (Desyrel) 100 MG tablet Take 100 mg by mouth at bedtime. Rx by psych Active sertraline (Zoloft) 25 MG tablet TAKE 1 TABLET BY MOUTH ONCE A DAY WITH 100MG TABLET FOR A TOTAL DOSE OF 125MG 024 Active buPROPion XL (Wellbutrin XL) 150 MG 24 hr tablet TAKE 1 TABLET BY MOUTH EVERY MORNING WITH FOOD 024 Active QUEtiapine (SEROquel) 25 MG tablet TAKE 1 TO 2 TABLETS BY MOUTH EVERY NIGHT AT BEDTIME NEEDED FOR SLEEP 024 Active lidocaine (Lidoderm) 5 % patch Apply 1 patch topically Once per day. Remove & discard patch within 12 hours or as directed by MD. 30 patch 3 025 Active topiramate (Topamax) 100 MG tabletIndications :Migraine variant with headache Take 1 tablet (100 mg) by mouth at bedtime. 90 tablet 1 025 Active diphenhydrAMINE (Banophen) 25 MG capsuleIndication s:Insomnia, unspecified type TAKE 1 CAPSULE BY MOUTH EVERY NIGHT AT BEDTIME NEEDED 90 capsule Active omeprazole (PriLOSEC) [address] capsule Take 1 capsule (20 mg) by mouth before breakfast. Do not crush or chew. 90 capsule Active cetirizine (ZyrTEC) 10 MG tabletIndications :Seasonal allergies Take 1 tablet (10 mg) by mouth Once per day. 90 tablet Active rosuvastatin (Crestor) 40 MG tablet Take 1 tablet (40 mg) by mouth Once per day. 90 tablet 025 Active ezetimibe (Zetia) 10 MG tabletIndications :Hyperlipidemia, unspecified hyperlipidemia type Take 1 tablet (10 mg) by mouth Once per day. 90 tablet Active senna-docusate sodium (Senokot-S) 8.6-50 MG tabletIndications :Constipation, unspecified constipation type Take 1 tablet by mouth Once per day. 90 tablet Active SUMAtriptan (Imitrex) 100 MG tablet Take 1 tablet (100 mg) by mouth 1 (one) time if needed for migraine. 9 tablet Active polyethylene glycol, PEG, 3350 (MiraLax) 17 GM/SCOOP powderIndications :Constipation, unspecified constipation type TAKE 17 G BY MOUTH EVERY DAY 527 g Active docusate sodium (Colace) 100 MG capsuleIndication s:Constipation, unspecified constipation type TAKE 1 CAPSULE BY MOUTH TWICE A DAY 180 capsule Active cholecalciferol VITAMIN D (Vitamin D-3) 50 MCG (2000 UT) tablet TAKE 1 TABLET BY MOUTH EVERY DAY 90 tablet 025 Active meclizine (Antivert) 25 MG tabletIndications :Neck pain on left side TAKE 1 TABLET BY MOUTH IN THE MORNING, AT NOON AND BEDTIME IF NEEDED FOR DIZZINESS 30 tablet Active mirabegron ER (Myrbetriq) 50 MG 24 hr tablet TAKE 1 TABLET BY MOUTH EVERY DAY 90 tablet 025 Active butalbital-aspiri n-caffeine (Fiorinal) 50-325-40 MG capsuleIndication s:Chronic intractable headache, unspecified headache type TAKE ONE CAPSULE BY MOUTH EVERY 4 HOURS NEEDED. DO NOT EXCEED 6 CAPSULES PER 24 HOURS 20 capsule 025 Active ketoconazole (NIZOral) 2 % shampooIndication s:Dandruff in adult Apply topically 2 (two) times a week. 120 mL 3 025 Active butalbital-acetam inophen-caffeine (Fioricet) 50-300-40 MG capsuleIndication s:Migraine variant with headache TAKE 1 TO 2 CAPSULES BY MOUTH EVERY 6 HOURS NEEDED. NOT TO EXCEED 6 CAPSULES PER 24 HOURS 20 capsule 025 Active hydrOXYzine pamoate (Vistaril) 50 MG capsule TAKE 1 CAPSULE BY MOUTH EVERY 8 HOURS IF NEEDED FOR ITCHING 90 capsule 025 Active acetaminophen (Tylenol 8 Hour) 650 MG ER tabletIndications :Neck pain on left side TAKE 1 TABLET BY MOUTH EVERY 8 HOURS IF NEEDED FOR MILD PAIN 90 tablet 1 025 Active fluticasone (Flonase) 50 MCG/ACT nasal sprayIndications: Seasonal allergies SHAKE LIQUID AND USE 2 SPRAYS IN EACH NOSTRIL EVERY DAY NEEDED FOR NASAL CONGESTION 48 g 025 Active sertraline (Zoloft) 100 MG tabletIndications :Primary insomnia Take 1 tablet (100 mg) by mouth Once per day. 90 tablet 1 025 Active busPIRone (Buspar) 30 MG tablet Take 1 tablet by mouth 2 times daily. 025 Active butalbital-acetam inophen-caffeine 50-325-40 MG tabletIndications :Headache, unspecified TAKE TWO TABLETS EVERY 8 HOURS NEEDED FOR HEADACHE 20 tablet 1 025 Active Tirzepatide-Weigh t Management (Zepbound) 2.5 MG/0.5ML solution auto-injector Inject 0.5 mL (2.5 mg) under the skin 1 (one) time per week. 2 mL 1 025 Active verapamil (Calan) 40 MG tablet TAKE 1/2 TABLET BY MOUTH TWICE A DAY 90 tablet 1 025 Active lidocaine-priloca ine (Emla) 2.5-2.5 % cream Apply topically to affected area prn pain 30 g 1 025 Active linaCLOtide (Linzess) 72 MCG capsuleIndication s:Constipation, unspecified constipation type TAKE 1 CAPSULE BY MOUTH BEFORE BREAKFAST. DO NOT CRUSH OR CHEW. 90 capsule 025 Active rotigotine (Neupro) 2 MG/24HRIndication s:Restless leg syndrome Place 1 patch on the skin Once per day. 30 patch 11 025 2025 Active rotigotine (Neupro) 2 MG/24HRIndication s:Restless leg syndrome Place 1 patch on the skin Once per day. 30 patch 11 025 2024 Discontinued(R eorder (will not trigger notification to Pharmacy)) linaCLOtide (Linzess) 72 MCG capsuleIndication s:Constipation, unspecified constipation type Take 1 capsule (72 mcg) by mouth before breakfast. Do not crush or chew. 90 capsule 025 2024 Discontinued(R eorder (will not trigger notification to Pharmacy)) Active Problems Problem Noted Date Diagnosed Date Alopecia 05/20/2024 Assessment & Plan (05/20/2024 2:15 PM EDT): Discussed with Pt side effects of Wegovy, including hair loss. Ordering lab work to r/o deficiencies. Reports stopped treatment 3 months ago. Referral to Dermatology for further evaluation. Other hyperlipidemia 09/22/2023 Assessment & Plan (09/22/2023 9:54 AM EST): Ordered labs to assess during next F/U Labs: CBC, Comprehensive Metabolic Panel, Lipid Other sleep apnea 09/22/2023 Numbness and tingling of both feet 09/22/2023 Assessment & Plan (09/22/2023 9:52 AM EST): Patient reports that she is experiencing persistent sharp pain in her legs from her knees down to her heels. She also has numbness and tingling in both feet. I have ordered a EMG. Prescribed Baclofen and increased the dose of Rotigotine. I discussed benefits and side effects of medications and patient consented to prescriptions. Labs: TSH w/ Reflex to FT4, Vitamin B12, Vitamin B6, Vitamin D Lumbar back pain with radicu lopathy affecting right lower extremity 09/22/2023 Assessment & Plan (03/14/2024 8:23 PM EDT): Relevant orders: Tramadol Ultram) 50 MG tablet for up to 7 days. Pt was made aware that she must finish her PT and have the office send the report to us in order to be able to take further action including an MRI. Cervical pain (neck) 06/16/2023 Assessment & Plan (06/16/2023 9:50 AM EST): Patient still presents visit with complaints of neck pain. As a result, patient will be referred to Physical Therapy. Restless leg syndrome 12/15/2022 Assessment & Plan (07/15/2024 11:49 AM EST): Referral to Sleep Medicine for further evaluation. Assessment & Plan (09/22/2023 1:35 PM EST): Patient feels that dose is not sufficient for her symptoms, increase dose Assessment & Plan (05/19/2023 2:55 PM EDT): Patient will be prescribed Neupro. Assessment & Plan (12/15/2022 1:33 PM EDT): Patient with restless leg symptoms with no improvement on Mirapex 0.5 mg. At this point will start no 0.25 mg of Mirapex in the morning and 0.5 mg nightly. Will follow up in 3 months. Ex-cigarette smoker 10/31/2022 Primary insomnia 10/31/2022 Assessment & Plan (06/19/2023 9:50 AM EST): Reports her psychiatrist increased her trazodone to 100 mg to help with her anxiety, reports feeling she is not sleeping as well. Recommended f/up with specialist about different options of treatment. Assessment & Plan (10/31/2022 4:47 PM EDT): Will send trial of doxepin, reports not sleeping with trazodone. Neck pain on left side 09/05/2022 Assessment & Plan (09/05/2022 5:03 PM EST): Left side neck pain in trapezial muscle, recommend PT, also may benefit of trigger point injection. 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 Recommended to decrease soda and sugary beverage consumption. Recommended at least 20 g per meal of protein to assist with satiety. Recommended at least 150 min/week of moderate intensity exercise. Overweight 09/22/2023 02/17/2025 Assessment & Plan (07/15/2024 11:50 AM EST): Discussed with pt her options for treatment to continue to lose weight. She declined seeing a wire communications engineer. Pt declined influenza and Covid vaccination. Will reassess at next visit. Follow up in 6 months. Assessment & Plan (03/14/2024 8:20 PM EDT): Pt's current weight is 129 LB. Pt was 154 last visit. Pt has lost 25 lb. Continue treatment plan. Assessment & Plan (11/27/2023 2:58 PM EDT): Discussed calorie deficit, recommended reduction of 20-30% of maintenance calories; wire communications engineer referral offered. Recommended to decrease soda and sugary beverage consumption. Recommended at least 20 g per meal of protein to assist with satiety. Recommended at least 150 min/week of moderate intensity exercise. Diminished processed carbohydrates, SSB and juices, reports side effects with burping and gasses. Has lost 8 lbs. Reports that medication is helping with cravings. Advised to f/u sooner if increase in medication causes too many symptoms. F/u in 3 months. Assessment & Plan (10/23/2023 9:28 PM EDT): Discussed calorie deficit, recommended reduction of 20-30% of maintenance calories; wire communications engineer referral offered. Recommended to decrease soda and sugary beverage consumption. Recommended at least 20 g per meal of protein to assist with satiety. Recommended at least 150 min/week of moderate intensity exercise. Re-order Wegovy for weekly dose. The patient was advised to increase vegetable intake, stay hydrated, and incorporate high-fiber foods like pears and plums into their diet. Ordered MiraLax, Colace, and Senokot-S to manage constipation. - Schedule F/U in 5 weeks to monitor the patient's progress and address any medication-related issues. The patient is also advised to contact a geriatric personal care aide for further evaluation and management of constipation. Future Appointments Date Time Provider Department Center 11/27/2023 10:00 AM Irene Barba MD [facility] Assessment & Plan (09/22/2023 10:00 AM EST): Discussed calorie deficit, recommended reduction of 20-30% of maintenance calories. Recommended to decrease soda and sugary beverage consumption. Recommended at least 20 g per meal of protein to assist with satiety. Recommended at least 150 min/week of moderate intensity exercise. Patient is a good candidate for Wegovy since she is overweight. I have prescribed Wegovy. I have discussed benefits along with side effects of the injection. I will F/U with patient in a month to see if how she is doing with Wegovy medication. Future Appointments Date Time Provider Department Center 10/23/2023 10:00 AM Irene Barba MD [facility] Breast pain, right 11/25/2022 Assessment & Plan (11/25/2022 10:07 AM EDT): Recommended primrose oil 1000 mg Class 1 obesity 10/31/2022 09/22/2023 Mass of upper outer quadrant of left breast 10/31/2022 02/17/2025 Assessment & Plan (11/25/2022 10:15 AM EDT): Patient with continued breast pain, previous ultrasound of L breast indicated lots of fibrosis. Patient reports continuing to feel mass. Will refer to surgeon for biopsy. Assessment & Plan (10/31/2022 4:46 PM EDT): Likely fibroadenoma, will send for mammo and US following [facility] guidelines. F/up results. Upper respiratory tract infection 08/11/2022 02/17/2025 Assessment & Plan (05/19/2023 2:54 PM EDT): Advised patient to get OTC medication for abdominal pain. Recommended to drink liquids -Will send a Cologuard Kit. Assessment & Plan (08/11/2022 10:23 AM EST): Negative rapid testing, reviewed with patient supportive care. Normal lung exam. RTC if worsening symptoms. Encounters Date Type Department Care Team Description 04/29/2025 Refill [facility] [address] [place] [address] Nohelia Monique MD Restless leg syndrome 04/28/2025 Patient Outreach [facility] [address] [place] [address] Irene Barba MD Pre-visit Planning ([facility] screening completed on 01/02/25 ) 04/23/2025 Results Follow-Up [facility] [address] [place] [address] Gissell Bearden MD XR Ankle 3+ Views Left 04/17/2025 11:15 AM EDT Office Visit [facility] [address] [place] [address] Gissell Bearden MD Acute left ankle pain (Primary Dx) 04/17/2025 Refill [facility] [address] [place] [address] Irene Barba MD 04/17/2025 Refill [facility] [address] [place] [address] Nohelia Monique MD Restless leg syndrome; Constipation, unspecified constipation type 04/17/2025 Travel 04/15/2025 Telephone [facility] [address] [place] [address] Irene Barba MD Nurse Triage 03/27/2025 2:45 PM EDT Office Visit [facility] [address] [place] [address] Nohelia Monique MD Migraine variant with headache (Primary Dx) 03/27/2025 Travel 03/26/2025 Telephone [facility] [address] [place] [id number] Irene Barba MD Nurse Triage 02/25/2025 Telephone [facility] [address] [place] [address] Irene Barba MD Prior Authorization 02/18/2025 Refill [facility] [address] [place] [address] Irene Barba MD 02/17/2025 2:00 PM EDT Office Visit [facility] [address] [place] [address] Irene Barba MD Encounter for immunization (Primary Dx); Breast cancer screening by mammogram; Dietary counseling; Exercise counseling; Class 1 obesity with serious comorbidity and body mass index (BMI) of 30.0 to 30.9 in adult, unspecified obesity type 02/17/2025 Refill [facility] [address] [place] [address] Irene Barba MD Headache, unspecified 02/17/2025 Travel 02/13/2025 Telephone [facility] [address] [place] [address] Irene Barba MD chart prep 02/07/2025 Patient Outreach [address] [address] Irene Barba MD Pre-visit Planning ([facility] screening completed on 01/02/25) from Last 3 Months Immunizations Immunization Administration Dates Next Due Influenza Injectable Quadriv alant Preservative Free IIV4 MDCK 06/13/2022 Influenza, IIV3, injectable 06/01/2015,1 08/09/2013,04/26/2013,2011,05/01/2012 Influenza, seasonal, injecta ble, preservative free 06/01/2015 Pfizer Covid-19 Vaccine 12+ 12/16/2020, Pneumococcal Conjugate PCV 20 02/17/2025 Tdap 08/05/2015,03/24/2014 Zoster, Recombinant 08/16/2022,06/13/2022 Social History Tobacco Use Types Packs/Day Years Used Date Smoking Tobacco: Former Cigarettes 1.5 18 0 07/31/1977 - 07/31/1995 Passive Smoke Exposure: Never Smokeless Tobacco: Never Tobacco Cessation:Counseling Given: Not Answered Alcohol Use Standard Drinks/Week Comments Never 0 [...] Orientation Straight 05/30/2022 10 :27 AM EDT Last Filed Vital Signs Vital Sign Reading Time Taken Comments Blood Pressure 118/72 04/17/2025 11:12 AM EDT Pulse 84 04/17/2025 11:12 AM EDT Temperature 36.6 C (97.9 F) 04/17/2025 11:12 AM EDT Respiratory Rate 20 04/17/2025 11:12 AM EDT Oxygen Saturation 97% 03/27/2025 2:44 PM EDT Inhaled Oxygen Concentration - - Weight 64.5 kg (142 lb 3.2 oz) 04/17/2025 11:12 AM EDT Height 144.8 cm (4' 9 ) 04/17/2025 11:12 AM EDT Body Mass Index 30.77 04/17/2025 11:12 AM EDT Plan of Treatment Upcoming Encounters Date Type Department Care Team ([facility] st Contact Info) Description 05/05/2025 10:00 AM EDT Office Visit [facility] [address] [place] [address] Irene Barba MD [address] [place] [address] 06/03/2025 9:45 AM EST Office Visit [facility] [address] [place] [address] Nohelia Monique MD [address] [place] [address] Health Maintenance Due Date Last Done Comments CT Colonography 1965 Colonoscopy 1965 FIT 1965 Sigmoidoscopy 1965 Disability Screening 1965 Hepatitis B Vaccines (1 of 3 - 19+ 3-dose series) 1986 FOBT 05/25/2024 05/25/2023 COVID-19 Vaccine ( season) 2025 08/02/2021, 12/16/2020, 11/25/2020 Influenza Vaccine (#1) 2025 2, 06/01/2015, 06/01/2015, Additional history exists Alcohol/Substance Use Screening 05/20/2025 05/20/2024 Pap Smear 06/14/2025 06/14/2022 DTaP/Tdap/Td Vaccines (3 - Td or Tdap) 08/05/2025 08/05/2015, 03/24/2014 SDOH Screening 01/02/2026 01/02/2025 Depression Screening 02/17/2026 02/17/2025, 02/18/20 Tobacco Screening 03/27/2026 03/27/2025 Colorectal Cancer Screening 05/25/2026 FIT DNA/Cologuard 05/25/2026 05/25/2023 Mammogram 03/20/2027 03/20/2025, 0401/2023, 01/21/2022 Cervical Cancer Screening 06/14/2027 HPV/Cotest 06/14/2027 06/14/2022 Lipid Panel 02/27/2030 02/27/2025, 09/01, 05/25/2023, Additional history exists RSV Patients and Patients Aged 60 years or older (1 - 1-dose 75+ series) 2042 HIV Screening Completed 03/29/2021 Hepatitis C Screening Completed 03/29/2021 Zoster Vaccines Completed 08/16/2022, 06/13/2022 Pneumococcal Vaccine: 50+ Years Completed 02/17/2025 HIB Vaccines Aged Out No longer eligi [...] patient's age to complete this topic Meningococcal Vaccine Aged Out No costa lyle eligible based on patient's age to complete this topic RSV under 20 months Aged Out No longe r eligible based on patient's age to complete this topic Rotavirus Vaccines Aged Out No longer eligible based on patient's age to complete this topic Procedures Procedure Name Priority Date/Time Associated Diagnosis Comments XR ANKLE 3+ VIEWS LEFT Routine 5 12:19 PM EDT Acute left ankle pain BI MAMMOGRAM SCREENING TOMOSYNTHESIS BILATERAL Routine 03/20/2025 11:40 AM EDT Breast cancer screening by mammogram TSH W/REFLEX TO FT4 Routine 02/27/2025 1 0:07 AM EDT Class 1 obesity with serious comorbidity and body mass index (BMI) of 30.0 to 30.9 in adult, unspecified obesity type LIPID PANEL, STANDARD Routine 02/27/2025 10:07 AM EDT Class 1 obesity with serious comorbidity and body mass index (BMI) of 30.0 to 30.9 in adult, unspecified obesity type COMPREHENSIVE METABOLIC PANEL Routine 02/27/2025 10:07 AM EDT Class 1 obesity with serious comorbidity and body mass index (BMI) of 30.0 to 30.9 in adult, unspecified obesity type CBC WITH AUTO DIFFERENTIAL Routine 02/27/2025 10:07 AM EDT Class 1 obesity with serious comorbidity and body mass index (BMI) of 30.0 to 30.9 in adult, unspecified obesity type LAB COLOGUARD COLON CANCER SCREEN Routine 05/25/2023 1:01 AM EDT Colon cancer screening THINPREP IMAGING PAP AND HPV MRNA E6/E7 WITH REFLEX TO HPV 16,18/45 Routine 06/14/2022 9:13 AM EST ZZZ HISTORICAL HEPATITIS C AB W/REFL TO HCV RNA, QN, PCR Routine 03/29/2021 10:25 AM EDT HIV 1/2 ANTIGEN/ANTIBODY, FOURTH GENERATION W/RFL Routine 03/29/2021 10:25 AM EDT from Last 3 Months or Most Recently Relevant to Health Maintenance Results * XR Ankle 3+ Views Left (04/21/2025 12:19 PM EDT) Anatomical Region Laterality Modality Lower Extremities, Ankle Left Radiogr aphic Imaging 04/21/2025 12:1 9 PM EDT Narrative 04/21/2025 12:30 PM EDT [address] [address] XRay Report Signed Patient: Celia Camejo MR#: [id number] 271 : 1965 Acct:[id number] Age/Sex: 60 / F ADM Date: 04/21/25 Loc: [facility] Attending Dr: Gissell Bearden MD Ordering Physician: Gissell Bearden MD Date of Service: 04/21/25 Procedure(s): XR ankle LT min 3V Accession Number(s): [id number] cc: Gissell Bearden MD; Irene Barba MD Reason for Exam: persistent left ankle pain EXAMINATION: XR ANKLE, LEFT CLINICAL INFORMATION: persistent left ankle pain COMPARISON: None available. TECHNIQUE: AP, lateral, and mortise views of the left ankle. FINDINGS: No fracture. Alignment is anatomic. No erosions. Joint spaces are maintained. Soft tissues are normal. XR/XR ankle LT min 3V IMPRESSION: Normal left ankle. Electronically signed by: Bruce Abernathy MD 04/21/2025 12:27 PM EDT Dictated By: Bruce Abernathy MD Signed By: <Electronically signed by Bruce Abernathy MD in OV> 04/21/25 1227 DD/ 1219 TD/TT: 04/21/25 1222 Flat Sorter Processor: Procedure Note Donotuseinterpreter, Image - 04/21/[address] [address] XRay Report Signed Patient: Vani CamejoR#: [id number] 271 : 1965Acct:[id number] Age/Sex: 60 / FADM Date: 04/21/25 Loc: [facility] Attending Dr: Gissell Bearden MD Ordering Physician: Gissell Bearden MD Date of Service: 04/21/25 Procedure(s): XR ankle LT min 3V Accession Number(s): [id number] cc: Gissell Bearden MD; Irene Barba MD Reason for Exam: persistent left ankle pain EXAMINATION: XR ANKLE, LEFT CLINICAL INFORMATION: persistent left ankle pain COMPARISON: None available. TECHNIQUE: AP, lateral, and mortise views of the left ankle. FINDINGS: No fracture. Alignment is anatomic. No erosions. Joint spaces are maintained. Soft tissues are normal. XR/XR ankle LT min 3V IMPRESSION: Normal left ankle. Electronically signed by: Bruce Abernathy MD 04/21/2025 12:27 PM EDT Dictated By: Bruce Abernathy MD Signed By: <Electronically signed by Bruce Abernathy MD in OV> 04/21/25 1227 DD/ 1219 TD/TT: 04/21/25 1222 Flat Sorter Processor: Gissell Bearden MD IMG XR PROCEDURES Final Resul t * BI Mammogram Screening Tomosynthesis Bilateral (03/20/2025 11:40 AM EDT) Anatomical Region Laterality Modality Breast Bilateral Mammography 03/20/2025 11:4 0 AM EDT Narrative 03/24/2025 3:46 PM EDT [facility] [address] [place] [address] Mammography Report Signed Patient: Celia Camejo MR#: [id number] 271 : 1965 Acct:[id number] Age/Sex: 60 / F ADM Date: 03/20/25 Loc: HO.MAMMO Attending Dr: Irene Barba MD Ordering Physician: Irene Barba MD Results: 1Nega tive Date of Service: 03/20/25 Follow Up: 1 Year From Orig inal Mammogram Procedure(s): MM tomosynthesis screening BI Accession Number(s): [id number] cc: Irene Barba MD EXAMINATION: MM SCREENING DIGITAL BREAST TOMOSYNTHESIS, BILATERAL CLINICAL INFORMATION: Screening. Asymptomatic. COMPARISON: Mammography: Comparison is made with available priors TECHNIQUE: Digital breast mammography with tomosynthesis is performed in both the craniocaudal and mediolateral oblique views along with computer-aided detection (CAD). FINDINGS: There are scattered areas of fibroglandular density (ACR BI-RADS breast composition Category b). There are no significant masses, abnormal calcifications, or other abnormalities. MM/MM tomosynthesis screening BI IMPRESSION: No mammographic evidence of malignancy. ASSESSMENT: BI-RADS BI-RADS 1 - Negative RECOMMENDATION: Routine annual mammography screening. 1 year F/U This examination should not preclude the clinical evaluation of a suspicious palpable abnormality. This patient's information was entered into a reminder system with a target due date for their next mammogram. Electronically signed by: Cindi Preston DO 03/24/2025 03:43 PM EDT RP Dictated By: Cindi Preston DO Signed By: <Electronically signed by Cindi Preston DO in OV> 03/24/25 1543 DD/ 1140 TD/TT: 03/20/25 1150 Flat Sorter Processor: Procedure Note Donotuseinterpreter, Image - 03/24/2025 [facility] [address] [place] [address] Mammography Report Signed Patient: Eb Camejo#: [id number] 271 : 1965Acct:[id number] Age/Sex: 60 / FADM Date: 03/20/25 Loc: HO.MAMMO Attending Dr: Irene Barba MD Ordering Physician: Irene Barba MDResults: 1Nega tive Date of Service: 03/20/25Follow Up: 1 Year From Orig inal Mammogram Procedure(s): MM tomosynthesis screening BI Accession Number(s): [id number] cc: Irene Barba MD EXAMINATION: MM SCREENING DIGITAL BREAST TOMOSYNTHESIS, BILATERAL CLINICAL INFORMATION: Screening. Asymptomatic. COMPARISON: Mammography: Comparison is made with available priors TECHNIQUE: Digital breast mammography with tomosynthesis is performed in both the craniocaudal and mediolateral oblique views along with computer-aided detection (CAD). FINDINGS: There are scattered areas of fibroglandular density (ACR BI-RADS breast composition Category b). There are no significant masses, abnormal calcifications, or other abnormalities. MM/MM tomosynthesis screening BI IMPRESSION: No mammographic evidence of malignancy. ASSESSMENT: BI-RADS BI-RADS 1 - Negative RECOMMENDATION: Routine annual mammography screening. 1 year F/U This examination should not preclude the clinical evaluation of a suspicious palpable abnormality. This patient's information was entered into a reminder system with a target due date for their next mammogram. Electronically signed by: Cindi Preston DO 03/24/2025 03:43 PM EDT RP Dictated By: Cindi Preston DO Signed By: <Electronically signed by Cindi Preston DO in OV> 03/24/25 1543 DD/ 1140 TD/TT: 03/20/25 1150 Flat Sorter Processor: Irene Barba MD IMG BI PROCEDURES Final Resul t * TSH W/Reflex to FT4 (02/27/2025 10:07 AM EDT) TSH reflex Free T4 1.98 0.32 - 4.0 uIU/mL [facility] Blood Venous blood specimen / Unknown 02/27/2025 10:07 AM EDT 02/27/2025 2:05 PM EDT Irene Barba MD LAB BLOOD ORDERABLES Final Re sult [facility] [address] [place] [address] [phone] * (ABNORMAL) CBC auto differential (02/27/2025 10:07 AM EDT) White Blood Count 5.5 4.8 - 10.8 X10*3/uL [facility] Red Blood Count 4.17(L) 4.20 - 5.50 X10*6/uL [facility] Hemoglobin 12.7 12.0 - 16.0 g/dl [facility] Hematocrit 37.6 37.0 - 47.0 % [facility] Mean Corpuscular Volume 90.2 80.0 - 98.0 fL [facility] Mean Corpuscular Hemoglobin 30.5 27.0 - 33.0 pg [facility] Mean Corpuscular HGB Conc 33.8 31.0 - 35.0 g/dl [facility] Red Cell Distribution Width 12.6 11.0 - 16.0 % [facility] Platelet Count 284 160 - 400 X10*3/uL [facility] Mean Platelet Volume 9.6 9.4 - 12.3 fL [facility] Neutrophils Percent Auto 37.7(L) 45 - 73 % [facility] Imm Gran Pct Auto 0.6(H) 0.0 - 0.4 % [facility] Lymphocytes Percent Auto 52.5(H) 20 - 40 % [facility] Monocytes Percent Auto 5.9 2 - 11 % [facility] Eosinophils Percent Auto 2.6 0 - 4 % [facility] Basophils Percent Auto 0.7 0 - 2 % [facility] NRBC Pct Auto 0.0 0.0 - 0.2 /100WBC [facility] Neutrophils Absolute Auto 2.1 2.0 - 8.3 x10*3/uL [facility] Imm Gran Abs Auto 0.03 0.00 - 0.03 X10*3/uL [facility] Lymphocytes Absolute Auto 2.9 1.2 - 4.9 X10*3/uL [facility] Monocytes Absolute Auto 0.3 0.1 - 1.2 X10*3/uL [facility] Eosinophils Absolute Auto 0.1 0.0 - 0.4 X10*3/uL [facility] Basophils Absolute Auto 0.0 0.0 - 0.2 X10*3/uL [facility] NRBC Abs Auto 0.000 0.0 - 0.012 X10*3/uL [facility] Blood Venous blood specimen / Unknown 02/27/2025 10:07 AM EDT 02/27/2025 2:05 PM EDT us Irene Barba MD LAB BLOOD ORDERABLES Final Re sult Performing Organization Address City/[facility]/ZIP Co de Phone Number [facility] [address] [place] [address] [phone] * (ABNORMAL) Lipid Panel, Standard (02/27/2025 10:07 AM EDT) Triglycerides 304(H) <150 mg/dL [facility] Comment:Desirable Triglyceri de: less than 150 mg/dLBorderline High Triglyceride 150-199 mg/dLHigh Triglyceride: 200-499 mg/dLVery High Triglyceride: greater than or equal to 5OO mg/dL Cholesterol 197 <200 mg/dL [facility] Comment:Desirable Cholestero l: less than 200 mg/dLBorderline High Cholesterol: 200-239 mg/dLHigh Cholesterol: greater than 239 mg/dL LDL Cholesterol Calculated 98 <100 mg/dL [facility] Comment:Desirable LDL: less than 100 mg/dLNear Optimal/Above Optimal LDL: 110- 129 mg/dLBorderline High LDL: 130-159 mg/dLHigh LDL: 160-189 mg/dLVery High LDL: greater than or equal to 190 mg/dL HDL Cholesterol 39(L) >40 mg/dL [facility] Comment:Desirable HDL: great er than 40 mg/dL Note: This HDL assay may give artificially low results in patients with liver disease. Blood Venous blood specimen / Unknown 02/27/2025 10:07 AM EDT 02/27/2025 2:05 PM EDT us Irene Barba MD LAB BLOOD ORDERABLES Final Re sult Performing Organization Address City/[facility]/ZIP Co de Phone Number [facility] [address] [place] [address] [phone] * (ABNORMAL) Comprehensive Metabolic Panel (02/27/2025 10:07 AM EDT) Sodium 142 135 - 145 mmol/L [facility] Potassium 3.8 3.3 - 5.1 mmol/L [facility] Chloride 106 96 - 108 mmol/L [facility] Carbon Dioxide 29 22 - 29 mmol/L [facility] Anion Gap 11(L) 12 - 20 [facility] Urea Nitrogen (BUN) 7(L) 9 - 16 mg/dL [facility] Creatinine, Serum 0.84 0.5 - 1.4 mg/dL [facility] Estimated Glomerular Filt Rate >60 [facility] Comment:Chronic Kidney Disea se: Estimated GFR < 60 mL/min/1.63p6Olslhy Kidney Disease: Estimated GFR < 15 mL/min/1.73m2 Glucose 84 60 - 115 mg/dL [facility] Calcium 8.7 8.4 - 10.2 mg/dL [facility] Bilirubin, Total 0.2 0.0 - 1.0 mg/dL [facility] Aspartate Amino Transferase 27 5 - 31 U/L [facility] Alanine Aminotransferase 21 0 - 31 U/L [facility] Total Protein 6.7 6.5 - 8.0 g/dL [facility] Albumin Level 4.0 3.5 - 5.0 g/dL [facility] Alkaline Phosphatase 85 39 - 117 U/L [facility] Blood Venous blood specimen / Unknown 02/27/2025 10:07 AM EDT 02/27/2025 2:05 PM EDT us Irene Barba MD LAB BLOOD ORDERABLES Final Re sult [facility] [address] [place] [address] [phone] * Cologuard?? colon cancer screening (05/25/2023 1:01 AM EDT) Cologuard Result Negative Negative 06/03/20 1:34 AM EDT [facility] (CLIA #:[id number]) Comment: NEGATIVE TEST RESULT. A negative Cologuard result indicates a low likelihood that a colorectal cancer (CRC) or advanced adenoma (adenomatous polyps with more advanced pre-malignant features) is present. The chance that a person with a negative Cologuard test has a colorectal cancer is less than 1 in 1500 (negative predictive value >99.9%) or has an advanced adenoma is less than 5.3% (negative predictive value 94.7%). These data are based on a prospective cross-sectional study of 10,000 individuals at average risk for colorectal cancer who were screened with both Cologuard and colonoscopy. (Lisa Taylor et al, N Engl J Med 2014;370(14):8782-2227) The normal value (reference range) for this assay is negative. COLOGUARD RE-SCREENING RECOMMENDATION: Periodic colorectal cancer screening is an important part of preventive healthcare for asymptomatic individuals at average risk for colorectal cancer. Following a negative Cologuard result, the [place] [employer] and U.S. Multi-Society Task Force screening guidelines recommend a Cologuard re-screening interval of 3 years. References: [place] [employer] Guideline for Colorectal Cancer Screening: https://www.cancer.org/cancer/yvgpz-zqonvr-ogpzqv/zovfcmlvr-mqqwxzyfa-gorcdol/ac s-rec ommendations.html.; Javier DK, Gracie CR, Hermelinda CastellanosK, Colorectal Cancer Screening: Recommendations for Physicians and Patients from the U.S. Multi-Society Task Force on Colorectal Cancer Screening , Am J Gastroenterology 2017; 112:6033-4489. TEST DESCRIPTION: Composite algorithmic analysis of stool DNA-biomarkers with hemoglobin immunoassay. Quantitative values of individual biomarkers are not reportable and are not associated with individual biomarker result reference ranges. Cologuard is intended for colorectal cancer screening of adults of either sex, 45 years or older, who are at average-risk for colorectal cancer (CRC). Cologuard has been approved for use by the U.S. FDA. The performance of Cologuard was established in a cross sectional study of average-risk adults aged 50-84. Cologuard performance in patients ages 45 to 49 years was estimated by sub-group analysis of near-age groups. Colonoscopies performed for a positive result may find as the most clinically significant lesion: colorectal cancer [4.0%], advanced adenoma (including sessile serrated polyps greater than or equal to 1cm diameter) [20%] or non- advanced adenoma [31%]; or no colorectal neoplasia [45%]. These estimates are derived from a prospective cross-sectional screening study of 10,000 individuals at average risk for colorectal cancer who were screened with both Cologuard and colonoscopy. (Lisa Hill al, N Engl J Med 2014;370(14):5681-8272.) Cologuard may produce a false negative or false positive result (no colorectal cancer or precancerous polyp present at colonoscopy follow up). A negative Cologuard test result does not guarantee the absence of CRC or advanced adenoma (pre-cancer). The current Cologuard screening interval is every 3 years. ([place] [employer] and U.S. Multi-Society Task Force). Cologuard performance data in a 10,000 patient pivotal study using colonoscopy as the reference method can be accessed at the following location: www.artaculous/results. Additional description of the Cologuard test process, warnings and precautions can be found at www.SignalDemandrd.com. Stool specimen (specimen) 05/25/2023 1:01 AM EDT 05/27/2023 6:48 AM EDT us Irene Barba MD LAB MOLECULAR DIAGNOSTICS ORD ERABLES Final Result [facility] (CLIA #:[id number]) [address] [place] [id number], * THINPREP TIS PAP AND HPV mRNA E6/E7 WITH REFLEX TO HPV 16,18/45 (06/14/2022 9:13 AM EST) Clinical Information: None given [facility] COMMENT SEE COMMENT [facility] Comment: EXPLANATORY NOTE: The Pap is a screening test for cervical cancer. It is not a diagnostic test and is subject to false negative and false positive results. It is most reliable when a satisfactory sample, regularly obtained, is submitted with relevant clinical findings and history, and when the Pap result is evaluated along with historic and current clinical information. COMMENT: This Pap test has been evaluated with computer assisted technology. CONVERTED [employer] Butcher'S Assistant: SEE COMMENT [facility] Comment: MSM, CT(ASCP) CT screening location: [address] [address] HPV nRNA E6/E7 Not Detected Not Detected [facility] Comment: Methodology: Pocketed Spring Assembler-Mediated Amplification This assay detects E6/E7 viral messenger RNA (mRNA) from 14 high-risk HPV types (16,18,31,33,35,39,45,51,52,56,58,59,66,68). Cervical sources are required for HPV testing. If a vaginal source from a patient who has had a total hysterectomy with removal of cervix was submitted, please contact the testing laboratory for alternative testing options. For additional information, please refer to http://[employer].Sodraft/faq/LQT374y6 (This link if provided for information/ educational purposes only.) Interpretation/Res ult: SEE COMMENT [facility] Comment: Negative for intraepithelial lesion or malignancy. Atrophic pattern; predominantly parabasal cells LMP: NONE GIVEN [facility] Prev. BX: NONE GIVEN [facility]VERTED [facility] Prev. PAP: NONE GIVEN [facility] SOURCE: None given [facility] Statement Of Adequacy: SATISFACTORY FOR EVALUATION Age and/or menstrual status not provided [facility] 06/14/2022 9:13 AM EST Trish Andrade [facility] LAB PATHOLOGY ORDERABLES Final Result [facility] * HEPATITIS C AB W/REFL TO HCV RNA, QN, PCR (03/29/2021 10:25 AM EDT) HEPATITIS C ANTIBODY NON-REACT ARELY NON-REACT ARELY [facility] INDEX 0.01 <1.00 [facility] Comment: HCV antibody was non-reactive. There is no laboratory evidence of HCV infection. In most cases, no further action is required. However, if recent HCV exposure is suspected, a test for HCV RNA (test code 63087) is suggested. For additional information please refer to http://[employer].Sodraft/faq/KXB42e6 (This link is being provided for informational/ educational purposes only.) 03/29/2021 10:2 5 AM EDT Irene Barba MD HISTORICAL/NON ORDERABLE LABS Final Result Performing Organization Address [facility] de Phone Number [facility] [address] * HIV 1/2 ANTIGEN/ANTIBODY,FOURTH GENERATION W/RFL (03/29/2021 10:25 AM EDT) HIV-1/2 ANTIGEN AND ANTIBODIES, 4TH GENERATION W/ REFLEX NON-REACT ARELY NON-REACT ARELY [facility] Comment: HIV-1 antigen and HIV-1/HIV-2 antibodies were not detected. There is no laboratory evidence of HIV infection. PLEASE NOTE: This information has been disclosed to you from records whose confidentiality may be protected by state law. If your state requires such protection, then the state law prohibits you from making any further disclosure of the information without the specific written consent of the person to whom it pertains, or as otherwise permitted by law. A general authorization for the release of medical or other information is NOT sufficient for this purpose. For additional information please refer to http://education.Sodraft/faq/TQS544 (This link is being provided for informational/ educational purposes only.) The performance of this assay has not been clinically validated in patients less than 2 years old. 03/29/2021 10:2 5 AM EDT Irene Barba MD LAB BLOOD ORDERABLES Final Re sult Performing Organization Address [facility] de Phone Number [facility] [address] from Last 3 Months or Most Recently Relevant to [place] [id number] [facility] C3 Care Teams General Engineer Relationship Specialty Start Date End Date Irene Barba MD [address] [place] [phone] PCP - General Family Medicine 02/23/21 JACQUELYN Leslie Psychiatrist Mental Health 09/22/23
--- OUTSIDE RECORDS SUMMARY | 2025-05-01 08:57 | XMS_ITS | Encounter Summary ---
Author Organization [employer] Address [address] [facility] [address] [place] [address] Care Team Providers Care Numberer And Wirer Name Role Phone Irene Barba MD Primary Care Provider [phone] Reason for Visit * Reason Comments Pre-visit Planning SDOH screening compl eted on 01/02/25 Encounter Details Date Type Department Care Team ([facility] st Contact Info) Description 04/28/2025 Patient Outreach [facility] [address] [place] [address] Irene Barba MD [address] [place], [place] [phone] Pre-visit Planning (SDOH screening completed on 01/02/25 ) Social History Tobacco Use Types Packs/Day Years [...] AM EDT documented as of this encounter Progress Notes * Easton Andre - 04/28/2025 12:15 PM EDT CC Easton Doan placed successful outbound call to patient for pre-visit planning. Patient name and confirmed. Patient confirms appt date and time, and has transportation arrangements. Biggest concern for appointment at this time is no concerns. Patient advised to bring to appointment a photo id and insurance card. Appropriate screenings completed in anticipation of appointment. documented in this encounter Plan of Treatment Upcoming Encounters Date Type Department Care Team ([facility] st Contact Info) Description 05/05/2025 10:00 AM EDT Office Visit [facility] [address] [place] [address] Irene Barba MD [address] [place] [address] 06/03/2025 9:45 AM EST Office Visit [facility] [address] [place] [address] Nohelia Monique MD [address] [place] [address] documented as of this encounter Visit Diagnoses Not on filedocumented in this encounter Additional Health Concerns Assessment Noted Time PHQ-9 Depression Total Score: 7 02/18/20 25 2:52 PM EDT documented as of this encounter Care Teams Numberer And Wirer Relationship Specialty Start Date End Date Irene Barba MD [address] [place] [phone] PCP - General Family Medicine 02/23/21 JACQUELYN Leslie Psychiatrist Mental Health 09/22/23 documented as of this encounter
--- OUTSIDE RECORDS SUMMARY | 2025-05-01 08:57 | XMS_ITS | Encounter Summary ---
Author Organization [facility] Address [address] [place] [address] Phone Care Team Providers Care Web Page Developer Name Role Phone Clarissa Cook MD Primary Care Provider [phone] Encounter Details Date Type Department Care Team (Late st Contact Info) Description 02/01/2016 Ophth Exam [facility] [address] [place] [address] Sang Okeefe MD [email or web address] Social History [...] on filedocumented in this encounter Care Teams Web Page Developer Relationship Specialty Start Date End Date Clarissa Cook MD [address] [place] [address] PCP - General 02/01/16 documented as of this encounter Additional Source Comments The information contained in this document represents components of the legal health record. It is not the complete legal health record.[facility]
--- OUTSIDE RECORDS SUMMARY | 2025-05-01 08:57 | XMS_ITS | Clinical Summary ---
Author Organization [facility] Address [address] [place] [address] Care Team Providers Care Slide Forming Machine Operator Name Role Phone Irene Barba MD Primary Care Provider [phone] Surgical History Surgery Date Site/Laterality Comments OTHER SURGICAL HISTORY PROCEDURE: ---- OTHER ----; COMMENT: benign mass removed from right side of neck PARTIAL HYSTERECTOMY PROCEDURE: [place] SUPRACERVICAL ABDL HYSTER W/WO RMVL TUBE OVARY; COMMENT: uterine inversion post delivery KNEE ARTHROSCOPY 08/2016 Right PROCEDURE: [place] ARTHROSCOPY AID TX SPINE&/FX KNEE W/O FIXJ ESOPHAGOGASTRODUODENOSCOPY 10/23/2017 PROCEDURE: [place] ESOPHAGOGASTRODUODENOSCOPY TRANSORAL DIAGNOSTIC; COMMENT: normal Medical History [...] Health Maintenance Due Date Last Done Comments Colorectal Cancer Screening: Colonoscopy 1967 Hepatitis B Vaccines (1 of 3 - 19+ 3-dose series) 1986 Pneumococcal Vaccine: 50+ Years (1 of 1 - PCV) 2017 Zoster Vaccines (1 of 2) 2017 Breast Cancer Screening 08/23/2019 08/23/2017 Cholesterol Screening (Lipid Panel) 07/09/2022 HIV Screening 07/09/2022 Hepatitis C Screening 07/09/2022 Social Influencers of Health Screening 07/09/2022 Depression Screening 07/31/2024 COVID-19 Vaccine (1 - 2023-2 5 season) 2025 Influenza Vaccine (#1) 2025 5, 05/01/2012 DTaP,Tdap,and Td Vaccines (2 - Td or Tdap) 08/05/2025 08/05/2015 RSV Immunization Adult Patients (1 - 1-dose 75+ series) 2042 HIB Vaccines Aged Out No longer eligi [...] Recently Relevant to Health Maintenance Care Teams Slide Forming Machine Operator Relationship Specialty Start Date End Date Irene Barba MD [address] [place] [address] PCP - General 12/19/22
--- OUTSIDE RECORDS SUMMARY | 2025-05-01 08:57 | XMS_ITS | Encounter Summary ---
Author Organization [employer] Address [address] [facility] [address] [place] [address] Care Team Providers Care Assault Amphibious Vehicle Crewman Name Role Phone Irene Barba MD Primary Care Provider [phone] Encounter Details Date Type Department Care Team (Late st Contact Info) Description 10/08/2024 Orders Only [facility] [address] [place], [place] [phone] Jaya Corrales MD [address] [place], [place] [phone] Social History Tobacco Use Types Packs/Day Years [...] [facility] [address] [place] [address] Irene Barba MD [address] [place] [address] 06/03/2025 9:45 AM EST Office Visit [facility] [address] [place] [address] Nohelia Monique MD [address] [place] [address] documented as of this encounter Visit Diagnoses Not on filedocumented in this encounter Additional Health Concerns Assessment Noted Time PHQ-9 Depression Total Score: 0 02/08/20 24 2:46 PM EDT documented as of this encounter Care Teams Assault Amphibious Vehicle Crewman Relationship Specialty Start Date End Date Irene Barba MD [address] [place] [address] PCP - General Family Medicine 02/23/21 JACQUELYN Leslie Psychiatrist Mental Health 09/22/23 documented as of this encounter
--- OUTSIDE RECORDS SUMMARY | 2025-05-01 08:57 | XMS_ITS | Clinical Summary ---
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 Strong contraindication to all sulfa drugs. Sulfacetamide Sodium Rash High 02/01/2016 Medications acetaminophen (TYLENOL) 325 mg tabletIndicatio ns:Pain Take 2 tablets (650 mg total) by mouth every 4 (four) hours as needed for mild pain. 0 6 Active Additional Information Patient not taking.Reported on 02/17/2016 oxyCODONE 5 MG immediate release tablet Take 1 tablet (5 mg total) by mouth every 4 (four) hours as needed for moderate pain or severe pain. Please allow partial fill Earliest Fill Date: 02/09/16 20 tablet 0 6 Active lidocaine (XYLOCAINE) 2 % mucosal gel jellyIndication s:Pain Apply topically as needed. Apply to lips. 30 mL 0 6 Active hydrOXYzine (ATARAX) 10 MG tablet Take 1 tablet (10 mg total) by mouth nightly. 7 tablet 0 6 Active polyethylene glycol (GLYCOLAX) 17 gram packet Take 17 g by mouth daily as needed (constipation). 14 each 1 6 Active sennosides 8.8 mg/5 mL Syrp Take 5 mL (8.8 mg total) by mouth 2 (two) times a day. 236 mL 0 6 Active cycloSPORINE modified (GENGRAF, NEORAL) 50 MG capsuleIndicati ons:Vaughn-Siva nson syndrome Take 1 capsule (50 mg total) by mouth 2 (two) times a day. 12 capsule 0 6 Active MAG&AL/SIM/DIPH ENHYD/LIDOCAINE (ALUMINUM-MAGNE SIUM-SIMETHICON E-DIPHENHYDRAMI NE-LIDOCAINE) 1:1:1 Mwsh Swish and spit 15 mL every 4 (four) hours as needed. 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 Not on tammy e 11/25/2022 Are you concerned about learning? Not on file 11/25/2022 No 11/25/2022 No 11/25/2022 Digital Access Answer Date Recorded No 12/26/2022 No 12/26/2022 No 12/26/2022 Reliable internet access at home? Not on file 12/26/2022 Device with a working camera? Not on file Comments Unknown Sex and Gender Information Value Date Recorded Sex Assigned at Not on file Legal Sex Female 9:14 PM EDT Gender Identity Not on file Sexual Orientation Not on file Last Filed Vital Signs Vital Sign Reading Time Taken Comments Blood Pressure 113/73 02/09/2016 3:30 PM EDT Pulse 84 02/09/2016 3:30 PM EDT Temperature 36.8 C (98.2 F) 02/09/2016 3:30 PM EDT Respiratory Rate 18 02/09/2016 3:30 PM EDT Oxygen Saturation 97% 02/09/2016 3:30 PM EDT Inhaled Oxygen Concentration - - Weight 64.9 kg (143 lb 1.3 oz) 02/08/2016 7:44 A M EDT Height 149.9 cm (4' 11.02 ) 02/01/2016 12:00 PM EDT Body Mass Index 28.88 02/01/2016 12:00 PM EDT Plan of Treatment Health Maintenance Due Date Last Done Comments LIPID PANEL 1967 DEPRESSION SCREENING 1979 SMOKING Hx and SMOKELESS TOBACCO SCREENING 01/17/1980 PNEUMOCOCCAL VACCINES (50+ years) (1 of 2 - PCV) 1986 ZOSTER VACCINES (1 of 2) 1986 PAP SMEAR 01/17/1988 MAMMOGRAM 2007 COLOGUARD 01/17/2012 COLONOSCOPY 01/17/2012 COLORECTAL CANCER SCREENING 01/17/2012 FIT TEST 01/17/2012 FOBT 01/17/2012 SIGMOIDOSCOPY 01/17/2012 VIRTUAL COLONOSCOPY 01/17/2012 CYCLOSPORINE LEVEL 02/07/2017 02/08/2016, 02/05/2016 CREATININE LEVEL 02/08/2017 02/09/2016, 05/2016, 02/07/2016, Additional history exists COVID-19 VACCINE (2 - Pfizer risk series) 12/16/2020 11/25/2020 INFLUENZA VACCINE (#1) 2025 06/01/2015, 2011 Adult Td,Tdap Booster 08/05/2025 08/05/2015 HEPATITIS C SCREENING Completed 02/02/2016 HIV ONE-TIME SCREENING (18-65 YEARS) Completed 02/02/2016 HEPATITIS A VACCINES Aged Out No long er eligible based on patient's age to complete this topic HIB VACCINES Aged Out No longer eligi ble based on patient's age to complete this topic MENINGOCOCCAL VACCINES (ACWY) Aged Out No longer eligible based on patient's age to complete this topic MENINGOCOCCAL VACCINES (B) Aged Out N o longer eligible based on patient's age to complete this topic Medical Devices Not on file Procedures Procedure Name Priority Date/Time Associated Diagnosis Comments BASIC METABOLIC PANEL Routine 02/09/2016 3:55 AM EDT CYCLOSPORIN LEVEL Timed 02/08/2016 4:3 0 AM EDT HEPATITIS C ANTIBODY, QUALITATIVE Routine 02/02/2016 4:42 AM EDT from Last 3 Months or Most Recently Relevant to Health Maintenance Results * Basic metabolic panel (02/09/2016 3:55 AM EDT) SODIUM 137 135 - 145 mmol/L [facility] DEPARTMENT OF PATHOLOGY POTASSIUM 4.0 3.4 - 5.0 mmol/L [facility] CHLORIDE 98 98 - 108 mmol/L [facility] CO2 24 23 - 32 mmol/L [facility] BUN 14 8 - 25 mg/dL [facility] CREATININE 0.69 0.60 - 1.50 mg/dL [facility] GLUCOSE 104 70 - 110 mg/dL [facility] CALCIUM 8.9 8.5 - 10.5 mg/dL [facility] PATHOLOGY EGFR >60 mL/min/1.7 3m2 [facility] Comment:Abnormal if <60 mL/m in/1.73m2. If patient is -Irish, multiply the result by 1.21. ANION GAP 15 3 - 17 mmol/L [facility] DE[facility] OF PATHOLOG[facility] Blood 02/09/2016 3:55 AM EDT 02/09/2016 4:10 AM EDT Collins Hill MD, PhD LAB BLOOD ORDERABLES F inal Result Performing Organization Address [facility] Co de Phone Number [facility] DEPARTMENT OF PATHOLOGY [address] [place] [address] * Cyclosporin level ([facility]WF,[facility]I,[facility] Only) (02/08/2016 4:30 AM EDT) CYCLOSPORINE 91 30 - 350 ng/mL [facility] PATHOLOG[facility] Comment: Therapeutic ranges depend upon the patient's clinical state, individual differences in sensitivity to the immunosuppressive and adverse effects of the particular immunosuppressant, coadministration of other immunosuppressants, time post transplant, and a number of other factors. Therefore, individual values cannot be used as the sole indicator for making changes in treatment regimen, and each patient should be evaluated clinically before changes in treatment regimens are made. Blood 02/08/2016 4:30 AM EDT 02/08/2016 4:51 AM EDT Collins Hill MD, PhD LAB BLOOD ORDERABLES F inal Result [facility] DEPARTMENT OF PATHOLOGY [address] [place] [phone] * Hepatitis C antibody, qualitative ([facility],BWF,[facility] Only) (02/02/2016 4:42 AM EDT) HCV ANTIBODY Negative Negative [facility] DE[facility]OLOG[facility] Comment:Antibodies to HCV no t detected. Does not exclude the possibility of exposure to HCV. Blood 02/02/2016 4:42 AM EDT 02/02/2016 4:54 AM EDT us Collins Hill MD, PhD LAB BLOOD ORDERABLES F inal Result Performing Organization Address [facility]/ZIP Co de Phone Number [facility] DEPARTMENT OF PATHOLOGY [address] [place] [phone] from Last 3 Months or Most Recently Relevant to Health Maintenance Insurance [employer] [facility] EPO [employer] [facility] EPO [facility] EPO [facility] E[facility] Advance Directives For more information, please contact: [phone] (9AM - 5PM [facility], Monday-Monday) * Full Code (Presumed) (Latest Code Status on File) Date Activated Date Inactivated Comments 02/01/2016 5:45 AM 02/09/2016 9:06 PM Care Teams Facility Planner Relationship Specialty Start Date End Date Clarissa Cook MD [address] [place] [address] PCP - General 02/01/16 Additional Source Comments The information contained in this document represents components of the legal health record. It is not the complete legal health record.[facility]
--- OUTSIDE RECORDS SUMMARY | 2025-05-01 08:58 | XMS_ITS | Encounter Summary ---
Author Organization [employer] Address [address] [address] Care Team Providers Care It Help Desk Technician Name Role Phone Irene Barba MD Primary Care Provider [phone] Reason for Visit * Reason Onset Date Comments Med Refill 11/12/2024 Encounter Details Date Type Department Care Team ([facility] Contact Info) Description 11/12/2024 Refill [facility] MED & PEDS [address] [place], [place] [phone] Gissell Bearden MD [address] [place] [address] Social History Tobacco Use Types Packs/Day Years [...] 10:00 AM EDT Office Visit [facility] MED & PEDS [address] [place] [address] Irene Barba MD [address] [place] [address] 06/03/2025 9:45 AM EST Office Visit [facility] MED & PEDS [address] [place] [address] Nohelia Monique MD [address] [place] [address] documented as of this encounter Visit Diagnoses Not on filedocumented in this encounter Additional Health Concerns Assessment Noted Time PHQ-9 Depression Total Score: 0 02/08/20 24 2:46 PM EDT documented as of this encounter Care Teams It Help Desk Technician Relationship Specialty Start Date End Date Irene Barba MD [address] [place] [address] PCP - General Family Medicine 02/23/21 JACQUELYN Leslie Psychiatrist Mental Health 09/22/23 documented as of this encounter
--- OUTSIDE RECORDS SUMMARY | 2025-05-01 08:58 | XMS_ITS | Encounter Summary ---
Author Organization [employer] Address [address] [place] [address] [address], [place] [address] Care Team Providers Care Automobile Painter Name Role Phone Irene Barba MD Primary Care Provider [phone] Encounter Details Date Type Department Care Team ([facility] Contact Info) Description 10/27/2022 Telephone [facility] MEDICINE [address] [place], [place] [phone] Irene Barba MD [address] [place], [place] [phone] Social History Tobacco Use Types Packs/Day Years [...] Upcoming Encounters Date Type Department Care Team ([facility] Contact Info) Description 05/05/2025 10:00 AM EDT Office Visit [facility] CH[facility] MED & PEDS [address] [place], [place] [phone] Irene Barba MD [address] [place] [address] 06/03/2025 9:45 AM EST Office Visit [facility] CHC MED & PEDS [address] [place], [place] [phone] Nohelia Monique MD [address] [place], [place] [phone] documented as of this encounter Visit Diagnoses Not on filedocumented in this encounter Care Teams Automobile Painter Relationship Specialty Start Date End Date Irene Barba MD [address] [place] [address] PCP - General Family Medicine 02/23/21 JACQUELYN Leslie Psychiatrist Mental Health 09/22/23 documented as of this encounter
--- OUTSIDE RECORDS SUMMARY | 2025-05-01 08:58 | XMS_ITS | Encounter Summary ---
Author Organization [employer] Address [address] [place] [address] 7 [place] [address] Care Team Providers Care Oracle E Business Developer Name Role Phone Irene Barba MD Primary Care Provider Reason for Visit * Reason Onset Date Comments Med Refill 08/07/2024 Encounter Details Date Type Department Care Team ([facility] st Contact Info) Description 08/07/2024 Refill [facility] MED & PEDS [address] [place], [place] [phone] Irene Barba MD [address] [place] [address] Social History Tobacco Use Types Packs/Day Years [...] 10:00 AM EDT Office Visit [facility]EDS [address] [place] [address] Irene Barba MD [address] [place] [address] 06/03/2025 9:45 AM EST Office Visit [facility] PEDS [address] [place] [address] Nohelia Monique MD [address] [place] [address] documented as of this encounter Visit Diagnoses Not on filedocumented in this encounter Additional Health Concerns Assessment Noted Time PHQ-9 Depression Total Score: 0 02/08/20 24 2:46 PM EDT documented as of this encounter Care Teams Oracle E Business Developer Relationship Specialty Start Date End Date Irene Barba MD [address] [place] [address] PCP - General Family Medicine 02/23/21 JACQUELYN Leslie Psychiatrist Mental Health 09/22/23 documented as of this encounter
--- OUTSIDE RECORDS SUMMARY | 2025-05-01 08:58 | XMS_ITS | Encounter Summary ---
Author Organization [employer] Address 75 [facility] 7 [place] [address] Care Team Providers Care Clinical Leader Name Role Phone Irene Barba MD Primary Care Provider [phone] Reason for Visit * Reason Onset Date Comments Med Refill 11/12/2024 Encounter Details Date Type Department Care Team ([facility] st Contact Info) Description 11/12/2024 Refill [facility] CHC MED & PEDS [address] [place], [place] [phone] Jaya Corrales MD [address] [place] [address] Migraine variant with headache; Insomnia, unspecified type; Seasonal allergies; Hyperlipidemia, unspecified hyperlipidemia type; Constipation, unspecified constipation type; Restless leg syndrome; Neck pain on left side Social History Tobacco Use Types Packs/Day Years [...] the past 12 months, has t he [id number], gas, oil or water company threatened to [...] 05/05/2025 10:00 AM EDT Office Visit [facility] MED & PEDS [address] [place] [address] Irene Barba MD [address] [place] [address] 06/03/2025 9:45 AM EST Office Visit [facility] MED & PEDS [address] [place] [address] Nohelia Monique MD [address] [place] [address] documented as of this encounter Visit Diagnoses Diagnosis Migraine variant with headache Insomnia, unspecified type Seasonal allergies Allergic rhinitis, cause unspecified Hyperlipidemia, unspecified hyperlipidemia type Constipation, unspecified constipation type Restless leg syndrome Restless legs syndrome (RLS) Neck pain on left side documented in this encounter Additional Health Concerns Assessment Noted Time PHQ-9 Depression Total Score: 0 02/08/20 24 2:46 PM EDT documented as of this encounter Care Teams Clinical Leader Relationship Specialty Start Date End Date Irene Barba MD [address] [place] [address] PCP - General Family Medicine 02/23/21 JACQUELYN Leslie Psychiatrist Mental Health 09/22/23 documented as of this encounter
--- OUTSIDE RECORDS SUMMARY | 2025-05-01 08:58 | XMS_ITS | Encounter Summary ---
Author Organization [employer] Address [address] [place] [address] 7 [place] [address] Care Team Providers Care Oil Tank Car Cleaner Name Role Phone Irene Barba MD Primary Care Provider [phone] Reason for Visit * Reason Onset Date Comments Med Refill 05/17/2024 Encounter Details Date Type Department Care Team ([facility] Contact Info) Description 05/17/2024 Refill [facility] MED & PEDS [address] [place] [address] Irene Barba MD [address] [place] [address] Seasonal allergies Social History Tobacco Use Types Packs/Day Years [...] Description 05/05/2025 10:00 AM EDT Office Visit [facility] MED & PEDS [address] [place] [address] Irene Barba MD [address] [place] [address] 06/03/2025 9:45 AM EST Office Visit [facility] MED & PEDS [address] [place] [address] Nohelia Monique MD [address] [place] [address] documented as of this encounter Visit Diagnoses Diagnosis Seasonal allergies Allergic rhinitis, cause unspecified documented in this encounter Additional Health Concerns Assessment Noted Time PHQ-9 Depression Total Score: 0 02/08/20 24 2:46 PM EDT documented as of this encounter Care Teams Oil Tank Car Cleaner Relationship Specialty Start Date End Date Irene Barba MD [address] [place] [address] PCP - General Family Medicine 02/23/21 JACQUELYN Leslie Psychiatrist Mental Health 09/22/23 documented as of this encounter
--- OUTSIDE RECORDS SUMMARY | 2025-05-01 08:58 | XMS_ITS | Encounter Summary ---
Author Organization [facility] [employer] Address [address] [place] [address] 7 [place] [address] Care Team Providers Care Senior Applications Architect Name Role Phone Irene Barba MD Primary Care Provider [phone] Reason for Visit * Reason Onset Date Comments Med Refill 08/13/2024 Encounter Details Date Type Department Care Team ([facility] st Contact Info) Description 08/13/2024 Refill [facility] MED & PEDS [address] [place], [place] [phone] Irene Barba MD [address] [place] [address] Social History Tobacco Use Types Packs/Day Years [...] 05/05/2025 10:00 AM EDT Office Visit [facility] MED & PEDS [address] [place] [address] Irene Barba MD [address] [place] [address] 06/03/2025 9:45 AM EST Office Visit [facility] MED & PEDS [address] [place] [address] Nohelia Moniuqe MD [address] [place] [address] documented as of this encounter Visit Diagnoses Not on filedocumented in this encounter Additional Health Concerns Assessment Noted Time PHQ-9 Depression Total Score: 0 02/08/20 24 2:46 PM EDT documented as of this encounter Care Teams Senior Applications Architect Relationship Specialty Start Date End Date Irene Barba MD [address] [place] [address] PCP - General Family Medicine 02/23/21 JACQUELYN Leslie Psychiatrist Mental Health 09/22/23 documented as of this encounter
--- OUTSIDE RECORDS SUMMARY | 2025-05-01 08:58 | XMS_ITS | Encounter Summary ---
Author Organization [employer] Address [address] [place] [address] 7 [place] [address] Care Team Providers Care Merchandise Pickup/Receiving Associate Name Role Phone Irene Barba MD Primary Care Provider [phone] Reason for Visit * Reason Comments Med Refill Encounter Details Date Type Department Care Team ([facility] st Contact Info) Description 11/22/2024 Refill [facility] CHC MED & PEDS [address] [place], [place] [phone] Naa De Guzman, MISSILE AND MISSILE CHECKOUT TECHNICIAN [address] [place], [place] [phone] Upper respiratory tract infection, unspecified type Social History Tobacco Use Types Packs/Day Years [...] Description 05/05/2025 10:00 AM EDT Office Visit [facility] MED & PEDS [address] [place] [address] Irene Barba MD [address] [place] [address] 06/03/2025 9:45 AM EST Office [facility] MED & PEDS [address] [place] [address] Nohelia Monique MD [address] [place] [address] documented as of this encounter Visit Diagnoses Diagnosis Upper respiratory tract infection, unspecified type documented in this encounter Additional Health Concerns Assessment Noted Time PHQ-9 Depression Total Score: 0 02/08/20 24 2:46 PM EDT documented as of this encounter Care Teams Merchandise Pickup/Receiving Associate Relationship Specialty Start Date End Date Irene Barba MD [address] [place] [address] PCP - General Family Medicine 02/23/21 JACQUELYN Leslie Psychiatrist Mental Health 09/22/23 documented as of this encounter
--- OUTSIDE RECORDS SUMMARY | 2025-05-01 08:58 | XMS_ITS | Encounter Summary ---
Author Organization [employer] Address [address] [place] [address] 7 [place] [address] Care Team Providers Care Rooms Director Name Role Phone Irene Barba MD Primary Care Provider [phone] Reason for Visit * Reason Onset Date Comments Med Refill 05/17/2024 Encounter Details Date Type Department Care Team ([facility] Contact Info) Description 05/17/2024 Refill [facility] MED & PEDS [address] [place], [place] [phone] Irene Barba MD [address] [place] [address] Migraine variant with headache Social History Tobacco [...] [facility] MED & PEDS [address] [place] [address] Irene Barba MD [address] [place] [address] 06/03/2025 9:45 AM EST Office Visit [facility] MED & PEDS [address] [place] [address] Nohelia Monique MD [address] [place] [address] documented as of this encounter Visit Diagnoses Diagnosis Migraine variant with headache documented in this encounter Additional Health Concerns Assessment Noted Time PHQ-9 Depression Total Score: 0 02/08/20 24 2:46 PM EDT documented as of this encounter Care Teams Rooms Director Relationship Specialty Start Date End Date Irene Barba MD [address] [place] [address] PCP - General Family Medicine 02/23/21 JACQUELYN Leslie Psychiatrist Mental Health 09/22/23 documented as of this encounter
--- OUTSIDE RECORDS SUMMARY | 2025-05-01 08:58 | XMS_ITS | Encounter Summary ---
Author Organization [employer] Address [address] [place] [address] 7 [place] [address] Care Team Providers Care Maintenance Truck Driver Name Role Phone Irene Barba MD Primary Care Provider [phone] Reason for Visit * Reason Onset Date Comments Med Refill 08/07/2024 Encounter Details Date Type Department Care Team ([facility] st Contact Info) Description 08/07/2024 Refill [facility] MED & PEDS [address] [place], [place] [phone] Irene Barba MD [address] [place] [address] Social History Tobacco Use Types Packs/Day Years [...] [facility] [address] [place] [address] Irene Barba MD [address] [place] [address] 06/03/2025 9:45 AM EST Office Visit [facility] MED & PEDS [address] [place] [address] Nohelia Monique MD 505 [place] [address] documented as of this encounter Visit Diagnoses Not on filedocumented in this encounter Additional Health Concerns Assessment Noted Time PHQ-9 Depression Total Score: 0 02/08/20 24 2:46 PM EDT documented as of this encounter Care Teams Maintenance Truck Driver Relationship Specialty Start Date End Date Irene Barba MD [address] [place] [address] PCP - General Family Medicine 02/23/21 JACQUELYN Leslie Psychiatrist Mental Health 09/22/23 documented as of this encounter
--- OUTSIDE RECORDS SUMMARY | 2025-05-01 08:58 | XMS_ITS | Encounter Summary ---
Author Organization [employer] Address [address] [place] [address] 7 [place] [address] Care Team Providers Care Tombstone Setter Name Role Phone Irene Barba MD Primary Care Provider [phone] Reason for Visit * Reason Comments Med Refill Encounter Details Date Type Department Care Team ([facility] st Contact Info) Description 11/05/2022 Refill [facility] CH[facility] MED & PEDS [address] [place], [place] [phone] Irene Barba MD [address] [place], [place] [phone] Primary insomnia Social History Tobacco Use Types Packs/Day Years [...] Orientation Straight 05/30/2022 10 :27 AM EDT COVID-19 Exposure Response Date Recorded In the last 10 days, have yo u been in contact with someone who was confirmed or suspected to have Coronavirus/COVID-19? No / Unsure 10/31/2022 2:06 PM EDT documented as of this encounter Miscellaneous Notes * Telephone Encounter - Maritza Brown RN - 11/07/2022 2:24 PM EDT Sent by other means documented in this encounter Plan of Treatment Upcoming Encounters Date Type Department Care Team (Late st Contact Info) Description 05/05/2025 10:00 AM EDT Office Visit [facility] MED & PEDS [address] [place] [address] Irene Barba MD 505 [place] [address] 06/03/2025 9:45 AM EST Office Visit [facility] MED & PEDS [address] [place] [address] Nohelia Monique MD 505 [place] [address] documented as of this encounter Visit Diagnoses Diagnosis Primary insomnia Persistent disorder of initiating or maintaining sleep documented in this encounter Additional Health Concerns Assessment Noted Time PHQ-9 Depression Total Score: 2 11/01/19 23 2:22 PM EDT documented as of this encounter Care Teams Tombstone Setter Relationship Specialty Start Date End Date Irene Barba MD [address] [place] [address] PCP - General Family Medicine 02/23/21 JACQUELYN Leslie Psychiatrist Mental Health 09/22/23 documented as of this encounter
--- OUTSIDE RECORDS SUMMARY | 2025-05-01 08:58 | XMS_ITS | Encounter Summary ---
Author Organization [employer] Address [address] [place] [address] 7 [place] [address] Care Team Providers Care Special Education Case Manager Name Role Phone Irene Barba MD Primary Care Provider [phone] Reason for Visit * Reason Onset Date Comments Med Refill 05/17/2024 Encounter Details Date Type Department Care Team ([facility] Contact Info) Description 05/17/2024 Refill [facility] MED & PEDS [address] [place] [address] Irene Barba MD 505 [place] [address] Hyperlipidemia, unspecified hyperlipidemia type Social History Tobacco Use Types Packs/Day [...] Description 05/05/2025 10:00 AM EDT Office Visit [facility] MED & PEDS 505 [place] [address] Irene Barba MD 505 [place] [address] 06/03/2025 9:45 AM EST Office Visit [facility] MED & PEDS 505 [place] [address] Nohelia Monique MD 505 [place] [address] documented as of this encounter Visit Diagnoses Diagnosis Hyperlipidemia, unspecified hyperlipidemia type documented in this encounter Additional Health Concerns Assessment Noted Time PHQ-9 Depression Total Score: 0 02/08/20 24 2:46 PM EDT documented as of this encounter Care Teams Special Education Case Manager Relationship Specialty Start Date End Date Irene Barba MD [address] [place] [address] PCP - General Family Medicine 02/23/21 JACQUELYN Leslie Psychiatrist Mental Health 09/22/23 documented as of this encounter
--- OUTSIDE RECORDS SUMMARY | 2025-05-01 08:58 | XMS_ITS | Encounter Summary ---
Author Organization [employer] Address [address] [facility] 7 [place] [address] Care Team Providers Care Dispatcher Clerk Name Role Phone Irene Barba MD Primary Care Provider [phone] Reason for Visit * Reason Onset Date Comments Med Refill 11/12/2024 Encounter Details Date Type Department Care Team ([facility] st Contact Info) Description 11/12/2024 Refill [facility] MEDICINE [address] [place] [address] Naa De Guzman FNP 505 [place], [place] [phone] Migraine variant with headache Social History Tobacco [...] [facility] 505 [place] [address] Irene Barba MD 505 [place] [address] 06/03/2025 9:45 AM EST Office Visit [facility] MED & PEDS 505 [place] [address] Nohelia Monique MD 505 [place] [address] documented as of this encounter Visit Diagnoses Diagnosis Migraine variant with headache documented in this encounter Additional Health Concerns Assessment Noted Time PHQ-9 Depression Total Score: 0 02/08/20 24 2:46 PM EDT documented as of this encounter Care Teams Dispatcher Clerk Relationship Specialty Start Date End Date Irene Barba MD [address] [place] [address] PCP - General Family Medicine 02/23/21 JACQUELYN Leslie Psychiatrist Mental Health 09/22/23 documented as of this encounter
--- OUTSIDE RECORDS SUMMARY | 2025-05-01 08:58 | XMS_ITS | Encounter Summary ---
Author Organization [employer] Address [address] [place] [address] 7 [place] [address] Care Team Providers Care Classified Ad Clerk Name Role Phone Irene Barba MD Primary Care Provider [phone] Reason for Visit * Reason Onset Date Comments Med Refill 06/02/2024 Encounter Details Date Type Department Care Team ([facility] Contact Info) Description 06/02/2024 Refill [facility] MED & PEDS 505 [place], [place] [phone] Irene Barba MD 505 [place] [address] Social History Tobacco Use Types Packs/Day Years [...] AM EDT Office Visit [facility] MED & PEDS [address] [place] [address] Irene Barba MD 505 [place] [address] 06/03/2025 9:45 AM EST Office Visit [facility] MED & PEDS 505 [place] [address] Nohelia Monique MD 505 [place] [address] documented as of this encounter Visit Diagnoses Not on filedocumented in this encounter Additional Health Concerns Assessment Noted Time PHQ-9 Depression Total Score: 0 02/08/20 24 2:46 PM EDT documented as of this encounter Care Teams Classified Ad Clerk Relationship Specialty Start Date End Date Irene Barba MD [address] [place] [address] PCP - General Family Medicine 02/23/21 JACQUELYN Leslie Psychiatrist Mental Health 09/22/23 documented as of this encounter
--- OUTSIDE RECORDS SUMMARY | 2025-05-01 08:58 | XMS_ITS | Encounter Summary ---
Author Organization [employer] Address [address] [facility] 7 [place] [address] Care Team Providers Care Resident Hall Director Name Role Phone Irene Barba MD Primary Care Provider [phone] Reason for Visit * Reason Onset Date Comments Med Refill 06/19/2024 Encounter Details Date Type Department Care Team ([facility] st Contact Info) Description 06/19/2024 Refill [facility] MEDICINE [address] [place] [address] Irene Barba MD [address] [place], [place] [phone] Social History Tobacco Use Types Packs/Day Years [...] your housing situation today? I have leonardo adalberto 05/18/[address] you li [...] [facility] MED & PEDS 505 [place] [address] Irene Barba MD 505 [place] [address] 06/03/2025 9:45 AM EST Office Visit [facility] MED & PEDS 505 [place] [address] Nohelia Monique MD 505 [place] [address] documented as of this encounter Visit Diagnoses Not on filedocumented in this encounter Additional Health Concerns Assessment Noted Time PHQ-9 Depression Total Score: 0 02/08/20 24 2:46 PM EDT documented as of this encounter Care Teams Resident Hall Director Relationship Specialty Start Date End Date Irene Barba MD [address] [place] [address] PCP - General Family Medicine 02/23/21 JACQUELYN Leslie Psychiatrist Mental Health 09/22/23 documented as of this encounter
--- OUTSIDE RECORDS SUMMARY | 2025-05-01 08:58 | XMS_ITS | Encounter Summary ---
Author Organization [employer] Address [address] [place] [address] Care Team Providers Care Hose Wrapper Name Role Phone Irene Barba MD Primary Care Provider [phone] Reason for Visit * Reason Onset Date Comments Med Refill 01/25/2025 Encounter Details Date Type Department Care Team ([facility] Contact Info) Description 01/25/2025 Refill [facility] CHC MED & PEDS 505 [place], [place] [phone] Gissell Bearden MD 505 [place] [address] Social History Tobacco Use Types Packs/Day Years [...] Recorded Patient Health Questionnaire-2 Score 0 02/08/2024 Internet Access Answer Date Recorded Internet Access [...] 05/05/2025 10:00 AM EDT Office Visit [facility] MED & PEDS [address] [place] [address] Irene Barba MD 505 [place] [address] 06/03/2025 9:45 AM EST Office Visit [facility] MED & PEDS [address] [place] [address] Nohelia Monique MD 505 [place] [address] documented as of this encounter Visit Diagnoses Not on filedocumented in this encounter Additional Health Concerns Assessment Noted Time PHQ-9 Depression Total Score: 0 02/08/20 24 2:46 PM EDT documented as of this encounter Care Teams Hose Wrapper Relationship Specialty Start Date End Date Irene Barba MD [address] [place] [address] PCP - General Family Medicine 02/23/21 JACQUELYN Leslie Psychiatrist Mental Health 09/22/23 documented as of this encounter
--- OUTSIDE RECORDS SUMMARY | 2025-05-01 08:58 | XMS_ITS | Encounter Summary ---
Author Organization [employer] Address [address] [place] [address] 7 [place] [address] Care Team Providers Care Insurance Verification Specialist Name Role Phone Irene Barba MD Primary Care Provider [phone] Reason for Visit * Reason Onset Date Comments Med Refill 08/13/2024 Encounter Details Date Type Department Care Team ([facility] st Contact Info) Description 08/13/2024 Refill [facility] MED & PEDS [address] [place], [place] [phone] Irene Barba MD 505 [place] [address] Insomnia, unspecified type; Hyperlipidemia, unspecified hyperlipidemia type; Restless leg syndrome Social History Tobacco Use [...] [facility] MED & [facility]ED[facility] [address] [place] [address] Irene Barba MD 505 [place] [address] 06/03/2025 9:45 AM EST Office Visit [facility] MED & PEDS [address] [place] [address] Nohelia Monique MD 505 [place] [address] documented as of this encounter Visit Diagnoses Diagnosis Insomnia, unspecified type Hyperlipidemia, unspecified hyperlipidemia type Restless leg syndrome Restless legs syndrome (RLS) documented in this encounter Additional Health Concerns Assessment Noted Time PHQ-9 Depression Total Score: 0 02/08/20 24 2:46 PM EDT documented as of this encounter Care Teams Insurance Verification Specialist Relationship Specialty Start Date End Date Irene Barba MD [address] [place] [address] PCP - General Family Medicine 02/23/21 JACQUELYN Leslie Psychiatrist Mental Health 09/22/23 documented as of this encounter
--- OUTSIDE RECORDS SUMMARY | 2025-05-01 08:58 | XMS_ITS | Encounter Summary ---
Author Organization [employer] Address [address] [place] [address] [address] [address] Care Team Providers Care Churn Driller Name Role Phone Irene Barba MD Primary Care Provider [phone] Reason for Visit * Reason Onset Date Comments ER Follow-up 11/30/2022 Encounter Details Date Type Department Care Team ([facility] Contact Info) Description 11/30/2022 Telephone [facility] CHC MED & PEDS 505 [place], [place] [phone] Irene Barba MD 505 [place] [address] ER Follow-up Social History Tobacco Use Types Packs/Day Years [...] suspected to have Coronavirus/COVID-19? No / Unsure 11/25/2022 9:49 AM EDT documented as of this encounter Miscellaneous Notes * Telephone Encounter - Neema Garcia RN - 12/01/2022 10:05 AM EDT Second call placed to pt via [employer] alternative financing specialist ID# [id number], no answer. LVM to return call to [facility] nurses. * Telephone Encounter - Neema Garcia RN - 11/30/2022 3:04 PM EDT Return call placed to pt for status check and also to schedule ED f/u appt, no answer. LVM to return call to [facility] nurses. * Telephone Encounter - Yasmeen Marquez - 11/30/2022 1:42 PM EDT Patient calling to report ED visit on 11/29/22 at [facility]. Seen for electric shock. Patient advised will forward to team nurse for follow up. *Patient speaks Tanzanian documented in this encounter Plan of Treatment Upcoming Encounters Date Type Department Care Team ([facility] st Contact Info) Description 05/05/2025 10:00 AM EDT Office Visit [facility] MED & PEDS [address] [place] [address] Irene Barba MD 505 [place] [address] 06/03/2025 9:45 AM EST Office Visit [facility] MED & PEDS 505 [place] [address] Nohelia Monique MD 505 [place] [address] documented as of this encounter Visit Diagnoses Not on filedocumented in this encounter Additional Health Concerns Assessment Noted Time PHQ-9 Depression Total Score: 2 11/01/19 23 2:22 PM EDT documented as of this encounter Care Teams Churn Driller Relationship Specialty Start Date End Date Irene Barba MD [address] [place] [address] PCP - General Family Medicine 02/23/21 JACQUELYN Leslie Psychiatrist Mental Health 09/22/23 documented as of this encounter
--- OUTSIDE RECORDS SUMMARY | 2025-05-01 08:58 | XMS_ITS | Encounter Summary ---
Author Organization [employer] Address [address] [place] [address] 7 [place] [address] Care Team Providers Care Radiology Physician Name Role Phone Irene Barba MD Primary Care Provider [phone] Reason for Visit * Reason Onset Date Comments Med Refill 06/02/2024 Encounter Details Date Type Department Care Team ([facility] Contact Info) Description 06/02/2024 Refill [facility] MED & PEDS 505 [place], [place] [phone] Irene Barba MD 505 [place] [address] Social History Tobacco Use Types Packs/Day Years [...] [facility] MED & PEDS 505 [place] [address] Irene Barba MD 505 [place] [address] 06/03/2025 9:45 AM EST Office Visit [facility] MED & PEDS 505 [place] [address] Nohelia Monique MD 505 [place] [address] documented as of this encounter Visit Diagnoses Not on filedocumented in this encounter Additional Health Concerns Assessment Noted Time PHQ-9 Depression Total Score: 0 02/08/20 24 2:46 PM EDT documented as of this encounter Care Teams Radiology Physician Relationship Specialty Start Date End Date Irene Barba MD [address] [place] [address] PCP - General Family Medicine 02/23/21 JACQUELYN Leslie Psychiatrist Mental Health 09/22/23 documented as of this encounter
== END 2025-05-01 09:37 | disposition home or self-care (01) ==
LOC: HO.HSM 08:37
PROVIDERS: PCP Family Medicine; Visit Provider Nurse Practitioner
DX: G43.109 Migraine with aura, not intractable, without status migrainosus (principal)
CPT/HCPCS: 99204

== ENCOUNTER → 2025-05-01 08:37 | Outpatient (BNVA) | payer MEDICAID, SELFPAY | PROVIDERS: PCP Family Medicine; Visit Provider Nurse Practitioner | DX: G43.109 Migraine with aura, not intractable, without status migrainosus (principal) | CPT/HCPCS: 99202 ==

== ENCOUNTER 2025-06-02 10:08 | Outpatient (AMB) | payer MEDICAID, SELFPAY ==
[2025-06-02 10:26] VITALS: BP 126/90; PULSE 77; RESP 16; O2SAT 97; BMI 29.7
--- NOTE | 2025-06-02 10:26 | A.OFFVIS_ITS ---
Vital Signs 06/02/25 10:26 Height 4 ft 10 in Weight 142 lb BMI 29.7 BP 126/90 H Blood Pressure Location Lt brachial Position Sitting Respiration 16 Pulse 77 Pulse Source Pulse Oximeter Pulse Oximetry (%) 97 Oxygen Delivery Method Room Air Intake Visit Reasons: First time Injection , per EB Physical Therapy Assistant Required: No Allergies NSAIDS (Non-Steroidal Anti-Inflamma Adverse Reaction (Mild, Verified 08/16/24 10:48) Unknown Sulfa (Sulfonamide Antibiotics) Adverse Reaction (Mild, Verified 08/16/24 10:48) rash sulfacetamide Adverse Reaction (Mild, Verified 08/16/24 10:48) Unknown sulfadiazine Adverse Reaction (Mild, Verified 08/16/24 10:48) Unknown HPI Comments Details: Celia is a 60-year-old female patient with a past medical history of cervical myofascial pain syndrome, neck pain, insomnia, restless leg, constipation, hyperlipidemia, sleep apnea, and paresthesias who is here today for her first Emgality injections. HPI per initial visit: The patient tells me today that she has been experiencing headaches since she was a child. She did not recieve treatment for her headaches until adulthood. She is currently experiencing a severe headache on average 3 times per month but the headaches can last up to 4 days (12 severe headaches per month. Her pain is generally frontal and temporal and is typically bilateral. Her pain is felt as a pounding sensation. Her headaches are accompanied by sound sensitivity but she denies light sensitivity, dizziness, or nausea. She does however describe 3 episodes of vision changes described as waves or crystals in the center of her vision. Her visual symptoms lasted about 25 minutes each time. She is currently taking topiramate 100mg at bedtime. She tells me that this was originally prescribed by her psychiatrist. She has not noticed that it helps with her headaches. She also takes verapamil but she believes that she takes it for other reasons and she has not noticed that it helps her headaches. She is prescribed sumatriptan 100mg for abortive therapy which she has found helpful to calm down her headaches . She also has a prescription for fioricet which she she uses very sparingly in cases of dire need if her sumatriptan does not work for her. She also brings up another concern today including her restless leg symptoms. She was on gabapentin in the past but remembers having some side-effects with this. She is currently on nupro transdermal patch which she feels has been at least somewhat beneficial. She wonders if her RLS has anything to do with her migraine headaches. She also mentions that she had a sleep study last week at [facility] but has not yet gotten the results of this. She is getting the nupro through her primary care who also ordered the sleep study . Headache characteristics: Time of onset: Childhood Location: Frontal and parietal Radiation:No Positional component:No Character: Pounding Severity:Can impact day-to-day finctioning Duration: Up to 4 days Frequency:3 episodes per month Acute aggravating factors:Not that she is aware of Acute relieving factors: Laying down to rest Associated symptoms:Sound sensitivity and visual disturbances Aura:Yes, waves or crystals in vision Headache triggers:No Relation to menses:No Other related background information: Sleep: She has a history of insomnia and takes seroquil which helps her Stressors: Reports some stress at home but her medications help to reduce her stress Hydration: Admits to poor hydration. Maybe 1 bottle of water per day Caffeine intake:4 cups of coffee per day Alcohol intake:No Substance use:No Tobacco use:No Last eye exam: Within the last year Last dental visit: Within the last month. Does note some clicking in her jaw History of head injury: No Past medication trials: Topiramate- Currently takine 100mg nightly for moods without any headache benefit Prior work[facility]: [facility] Medical History Alopecia Numbness and tingling of both feet ANNAMARIA (obstructive sleep apnea) Other hyperlipidemia Cervical pain RLS (restless legs syndrome) Insomnia Vaughn-Lucien disease Cervical myofascial pain syndrome Migraine Social History (Updated 05/01/25 @ 08:52 by Cali Hale CMA) Alcohol intake: never Patient Tobacco Use Status: Former Tobacco user Tobacco use type: Cigarette Review of Systems Const All systems reviewed & are unremarkable except as noted in HPI and below Physical Exam Vital Signs: Last Vital Signs Pulse 77 06/02/25 10:26 Resp 16 06/02/25 10:26 BP 126/90 H 06/02/25 10:26 Pulse Ox 97 06/02/25 10:26 Oxygen Delivery Method Room Air 06/02/25 10:26 BMI result Body Mass Index 29.7 Const General: cooperative, healthy appearing, comfortable and no acute distress Nutritional Appearance: well nourished Orientation/consciousness: patient oriented x3 Limitations: no limitations HEENT Head: Yes normal to inspection and Yes normocephalic Eyes General: appearance normal, both eyes and all related structures Visual Velazquez: normal visual velazquez by confrontation Alignment and Position: alignment normal Periorbital: periorbital findings normal Eyelids: Yes eyelids normal Conjunctivae: conjunctivae normal Sclerae: sclerae normal Back/Spine/Pelvis Other: Bilateral trapezius tightening without trigger points. No occipital notch tenderness. Neuro General: patient oriented x3 Cranial nerves: Yes CN's II-XII intact bilaterally Cognition (Neuro): normal cognition Gait exam (Neuro): Normal gait present Motor exam (neuro): no tremor noted Romberg Test: Negative Pupils: Normal pupillary reactivity/response: bilateral Psych Appearance: grossly normal Mental Status: mental status grossly normal Speech and movement: Normal speech and movement present and Clear speech present Affect: normal affect Attitude: cooperative Thought process: Normal thought process present Thought content: Normal thought content present Insight: Good insight present (Psych) Judgement: Good judgement present (Psych) Assessment & Plan Assessment & Plan (1) Migraine with aura and without status migrainosus, not intractable: Code(s): G43.109 - Migraine with aura, not intractable, without status migrainosus Category: Medical Plan Celia is a 60-year-old female patient with a past medical history of cervical myofascial pain syndrome, neck pain, insomnia, restless leg, constipation, hyperlipidemia, sleep apnea, and paresthesias who was prescribed Emgality injections at time of last visit for migraine prevention. She is here today for her 1st dose. Unfortunately, the pharmacy only administered her 1st maintenance dose and did not administer the to injections required for her loading dose. I did call the pharmacy during today's visit and they explained that they would release a 2nd injection to make her total loading dose. I did proceed with giving her her 1st injection during her visit and taught her the steps on how to complete her injection. She plans to go picker and sorter load and unload the injection on her way home and do her 2nd 1 on her own. After today's visit, she feels more comfortable doing this. I did explain that if she feels uncomfortable, I would be more than happy to see her again later today to administer the 2nd dose. I did stress the importance of getting the 2nd injection into her as soon as possible to make her loading dose. She does agree verbally. Emgality injection (120 mg dose) was given to her left upper extremity. Lot #[id number], expiration 08/31/2026 Plan as outlined from time of her initial/most recent visit: -trial of emgality 240mg sc loading dose and then 120mg sc monthly -continue sumatriptan 100mg as needed for acute therapy -reduce caffeine intake -increase water. -follow-up in 2 months or sooner if needed -she would also like to make an appointment with me for her first dose on emgality for assistance and teaching Coding Level of Care Code Est Pt Level 2 ([address]278) Diagnoses Migraine with aura and without status migrainosus, not intractable G43.109
--- OUTSIDE RECORDS SUMMARY | 2025-06-02 12:05 | XMS_ITS | Encounter Summary ---
Author Organization [employer] Address [address] [place] [address] Care Team Providers Care Tunnel Heading Supervisor Name Role Phone Irene Barba MD Primary Care Provider [phone] Encounter Details Date Type Department Care Team (Late st Contact Info) Description 07/28/2022 Orders Only [facility] MEDICINE [address] [place] [address] Adiel Arteaga, PharmD [address] [place] [address] Social History Tobacco Use Types Packs/Day Years [...] Care Team (Late st Contact Info) Description 06/03/2025 9:45 AM EST Office Visit [facility] CHC MED & PEDS [address] [place], [place] [phone] Nohelia Monique MD 505 [place], [place] [phone] documented as of this encounter Visit Diagnoses Not on filedocumented in this encounter Care Teams Tunnel Heading Supervisor Relationship Specialty Start Date End Date Irene Barba MD [address] [place] [address] PCP - General Family Medicine 02/23/21 JACQUELYN Leslie Psychiatrist Mental Health 09/22/23 documented as of this encounter
--- OUTSIDE RECORDS SUMMARY | 2025-06-02 12:05 | XMS_ITS | Clinical Summary ---
Author Organization [facility] Address [address] [place] [address] Phone Care Team Providers Care Transportation Escort Name Role Phone Clarissa Cook MD Primary Care Provider Allergies Active Allergy Reactions Criticality Noted Date [...] FOBT 01/17/2012 SIGMOIDOSCOPY 01/17/2012 VIRTUAL COLONOSCOPY 01/17/2012 RSV VACCINE (1 - Risk 50-74 years 1-dose series) 2017 CYCLOSPORINE LEVEL 02/07/2017 02/08/2016, 02/05/2016 CREATININE LEVEL [...] Date/Time Associated Diagnosis Comments BASIC METABOLIC PANEL (BMP) Routine 02/09/2016 3:55 AM EDT CYCLOSPORIN LEVEL Timed 02/08/2016 4:3 0 AM EDT HEPATITIS C ANTIBODY, QUALITATIVE Routine 02/02/2016 4:42 AM EDT from Last 3 Months or Most Recently Relevant to Health Maintenance Results * Basic metabolic panel (02/09/2016 3:55 AM EDT) SODIUM 137 135 - 145 mmol/L [facility] PATHOLOGY POTASSIUM 4.0 3.4 - 5.0 mmol/L [facility] CHLORIDE 98 98 - 108 mmol/L [facility] CO2 24 23 - 32 mmol/L [facility] BUN 14 8 - 25 mg/dL [facility] CREATININE 0.69 0.60 - 1.50 mg/dL [facility] GLUCOSE 104 70 - 110 mg/dL [facility] CALCIUM 8.9 8.5 - 10.5 mg/dL [facility] PATH[facility] EGFR >60 mL/min/1.7 3m2 [facility] PATH[facility] Comment:Abnormal if <60 mL/m in/1.73m2. If patient is -Bahamian, multiply the result by 1.21. ANION GAP 15 3 - 17 mmol/L [facility] PATHOLOG[facility] Blood 02/09/2016 3:55 AM EDT 02/09/2016 4:10 AM EDT us Collins Hill MD, PhD LAB BLOOD BKR ORDERABL ES Final Result [facility] OF PATHOLOGY [address] [place] [address] * Cyclosporin level ([facility] Only) (02/08/2016 4:30 AM EDT) CYCLOSPORINE 91 30 - 350 ng/mL [facility] PATHOLOG[facility] Comment: Therapeutic ranges [...] 4:30 AM EDT 02/08/2016 4:51 AM EDT us Collins Hill MD, PhD LAB BLOOD BKR ORDERABL ES Final Result [facility] DE[facility] OF PATHOLOGY [address] [place] [address] * Hepatitis C antibody, qualitative ([facility] Only) (02/02/2016 4:42 AM EDT) HCV ANTIBODY Negative Negative [facility] DEPARTMENT OF PATHOLOGY Comment:Antibodies to HCV no t detected. Does not exclude the possibility of exposure to HCV. Blood 02/02/2016 4:42 AM EDT 02/02/2016 4:54 AM EDT us Collins Hill MD, PhD LAB BLOOD BKR ORDERABL ES Final Result Performing Organization Address City/[facility]/ZIP Co de Phone Number [facility] DEPARTMENT OF PATHOLOGY [address] [place] [address] from Last 3 Months or Most Recently Relevant to Health Maintenance Insurance [facility] EPO [facility] EPO [facility] EPO [facility] EPO [facility] EPO [facility] EPO [facility] EPO Advance Directives For more information, please contact: [phone] (9AM - 5PM [facility], Monday-Monday) * Full Code (Presumed) (Latest Code Status on File) Date Activated Date Inactivated Comments 02/01/2016 5:45 AM 02/09/2016 9:06 PM Care Teams Transportation Escort Relationship Specialty Start Date End Date Clarissa Cook MD [address] [place] [address] PCP - General 02/01/16 Additional Source Comments The information contained in this document represents components of the legal health record. It is not the complete legal health record.[facility]
--- OUTSIDE RECORDS SUMMARY | 2025-06-02 12:05 | XMS_ITS | Encounter Summary ---
Author Organization [employer] Address [address] [place] [address] 7 [place] [address] Care Team Providers Care Destination Sign Repairer Name Role Phone Irene Barba MD Primary Care Provider Reason for Visit * Reason Onset Date Comments Med Refill 05/17/2024 Encounter Details Date Type Department Care Team ([facility] Contact Info) Description 05/17/2024 Refill [facility] MED & PEDS [address] [place] [address] Irene Barba MD 505 [place] [address] Seasonal allergies Social History Tobacco Use Types [...] Description 06/03/2025 9:45 AM EST Office Visit [facility] MED & PEDS [address] [place] [address] Nohelia Monique MD 505 [place] [address] documented as of this encounter Visit Diagnoses Diagnosis Seasonal allergies Allergic rhinitis, cause unspecified documented in this encounter Additional Health Concerns Assessment Noted Time PHQ-9 Depression Total Score: 0 02/08/20 24 2:46 PM EDT documented as of this encounter Care Teams Destination Sign Repairer Relationship Specialty Start Date End Date Irene Barba MD [address] [place] [address] PCP - General Family Medicine 02/23/21 JACQUELYN Leslie Psychiatrist Mental Health 09/22/23 documented as of this encounter
--- OUTSIDE RECORDS SUMMARY | 2025-06-02 12:05 | XMS_ITS | Encounter Summary ---
Author Organization [employer] Address [address] [place] [address] [address], [place] [address] Care Team Providers Care Nephrologist Name Role Phone Irene Barba MD Primary Care Provider [phone] Encounter Details Date Type Department Care Team (Late Contact Info) Description 02/17/2023 Orders Only [facility] MEDICINE [address] [place], [place] [phone] Jenny Treviño MD [address] [place], [place] [phone] Primary insomnia (Primary Dx) Social History Tobacco [...] Description 06/03/2025 9:45 AM EST Office Visit [facility] MED & PEDS [address] [place], [place] [phone] Nohelia Monique MD [address] [place] [address] documented as of this encounter Visit Diagnoses Diagnosis Primary insomnia- Primary Persistent disorder of initiating or maintaining sleep documented in this encounter Additional Health Concerns Assessment Noted Time PHQ-9 Depression Total Score: 2 11/01/19 23 2:22 PM EDT documented as of this encounter Care Teams Nephrologist Relationship Specialty Start Date End Date Irene Barba MD [address] [place] [address] PCP - General Family Medicine 02/23/21 JACQUELYN Leslie Psychiatrist Mental Health 09/22/23 documented as of this encounter
--- OUTSIDE RECORDS SUMMARY | 2025-06-02 12:05 | XMS_ITS | Encounter Summary ---
Author Organization [employer] Address [address] [place] [address] 7 [place] [address] Care Team Providers Care Substation Wireman Name Role Phone Irene Barba MD Primary Care Provider [phone] Reason for Visit * Reason Onset Date Comments Med Refill 05/17/2024 Encounter Details Date Type Department Care Team ([facility] Contact Info) Description 05/17/2024 Refill [facility] MED & PEDS [address] [place] [address] Irene Barba MD 505 [place] [address] Hyperlipidemia, unspecified hyperlipidemia type Social History Tobacco [...] Description 06/03/2025 9:45 AM EST Office Visit [facility] CHC MED & PEDS [address] [place] [address] Nohelia Monique MD 505 [place] [address] documented as of this encounter Visit Diagnoses Diagnosis Hyperlipidemia, unspecified hyperlipidemia type documented in this encounter Additional Health Concerns Assessment Noted Time PHQ-9 Depression Total Score: 0 02/08/20 24 2:46 PM EDT documented as of this encounter Care Teams Substation Wireman Relationship Specialty Start Date End Date Irene Barba MD [address] [place] [address] PCP - General Family Medicine 02/23/21 JACQUELYN Leslie Psychiatrist Mental Health 09/22/23 documented as of this encounter
--- OUTSIDE RECORDS SUMMARY | 2025-06-02 12:05 | XMS_ITS | Encounter Summary ---
Author Organization [employer] Address [address] [place] [address] 7 [place] [address] Care Team Providers Care Metal Grader Name Role Phone Irene Barba MD Primary Care Provider [phone] Reason for Visit * Reason Onset Date Comments Med Refill 12/13/2023 Encounter Details Date Type Department Care Team ([facility] st Contact Info) Description 12/13/2023 Refill [facility] MED & PEDS [address] [place], [place] [phone] Irene Barba MD 505 [place] [address] Migraine variant with headache Social History Tobacco [...] Description 06/03/2025 9:45 AM EST Office Visit [facility] MED & PEDS [address] [place] [address] Nohelia Monique MD 505 [place] [address] documented as of this encounter Visit Diagnoses Diagnosis Migraine variant with headache documented in this encounter Additional Health Concerns Assessment Noted Time PHQ-9 Depression Total Score: 2 11/01/19 23 2:22 PM EDT documented as of this encounter Care Teams Metal Grader Relationship Specialty Start Date End Date Irene Barba MD [address] [place] [address] PCP - General Family Medicine 02/23/21 JACQUELYN Leslie Psychiatrist Mental Health 09/22/23 documented as of this encounter
--- OUTSIDE RECORDS SUMMARY | 2025-06-02 12:05 | XMS_ITS | Encounter Summary ---
Author Organization [employer] Address [address] [place] [address] 7 [place] [address] Care Team Providers Care Drawing In Hand Name Role Phone Irene Barba MD Primary Care Provider [phone] Reason for Visit * Reason Onset Date Comments Med Refill 08/20/2024 Encounter Details Date Type Department Care Team ([facility] Contact Info) Description 08/20/2024 Refill [facility] MED & PEDS [address] [place], [place] [phone] Irene Barba MD 505 [place] [address] Social History Tobacco Use Types Packs/Day Years [...] Description 06/03/2025 9:45 AM EST Office Visit [facility] MED & PEDS 505 [place] [address] Nohelia Monique MD 505 [place] [address] documented as of this encounter Visit Diagnoses Not on filedocumented in this encounter Additional Health Concerns Assessment Noted Time PHQ-9 Depression Total Score: 0 02/08/20 24 2:46 PM EDT documented as of this encounter Care Teams Drawing In Hand Relationship Specialty Start Date End Date Irene Barba MD [address] [place] [address] PCP - General Family Medicine 02/23/21 JACQUELYN Leslie Psychiatrist Mental Health 09/22/23 documented as of this encounter
--- OUTSIDE RECORDS SUMMARY | 2025-06-02 12:05 | XMS_ITS | Encounter Summary ---
Author Organization [employer] Address [address] [facility] 7 [place] [address] Care Team Providers Care Pipe Racker Name Role Phone Irene Barba MD Primary Care Provider [phone] Reason for Visit * Reason Comments Med Refill Encounter Details Date Type Department Care Team ([facility] st Contact Info) Description 12/14/2023 Refill [facility] CHC MED & PEDS 505 [place], [place] [phone] Irene Barba MD 505 [place], [place] [phone] Social History Tobacco Use Types Packs/Day Years [...] Description 06/03/2025 9:45 AM EST Office Visit [facility] MED & PEDS 505 [place] [address] Nohelia Monique MD 505 [place] [address] documented as of this encounter Visit Diagnoses Not on filedocumented in this encounter Additional Health Concerns Assessment Noted Time PHQ-9 Depression Total Score: 2 11/01/19 23 2:22 PM EDT documented as of this encounter Care Teams Pipe Racker Relationship Specialty Start Date End Date Irene Barba MD [address] [place] [address] PCP - General Family Medicine 02/23/21 JACQUELYN Leslie Psychiatrist Mental Health 09/22/23 documented as of this encounter
--- OUTSIDE RECORDS SUMMARY | 2025-06-02 12:05 | XMS_ITS | Encounter Summary ---
Author Organization [employer] Address [address] [place] [address] 7 [place] [address] Care Team Providers Care Shelter Director Name Role Phone Irene Barba MD Primary Care Provider [phone] Reason for Visit * Reason Onset Date Comments Med Refill 05/17/2024 Encounter Details Date Type Department Care Team ([facility] Contact Info) Description 05/17/2024 Refill [facility] MED & PEDS 505 [place], [place] [phone] Irene Barba MD 505 [place] [address] Social History Tobacco Use Types Packs/Day Years [...] Description 06/03/2025 9:45 AM EST Office Visit [facility] MED & PEDS 505 [place] [address] Nohelia Monique MD 505 [place] [address] documented as of this encounter Visit Diagnoses Not on filedocumented in this encounter Additional Health Concerns Assessment Noted Time PHQ-9 Depression Total Score: 0 02/08/20 24 2:46 PM EDT documented as of this encounter Care Teams Shelter Director Relationship Specialty Start Date End Date Irene Barba MD [address] [place] [address] PCP - General Family Medicine 02/23/21 JACQUELYN Leslie Psychiatrist Mental Health 09/22/23 documented as of this encounter
--- OUTSIDE RECORDS SUMMARY | 2025-06-02 12:05 | XMS_ITS | Encounter Summary ---
Author Organization [employer] Address [address] [place] [address] 7 [place] [address] Care Team Providers Care Acid Pumper Name Role Phone Irene Barba MD Primary Care Provider Reason for Visit * Reason Onset Date Comments Med Refill 04/17/2025 Encounter Details Date Type Department Care Team ([facility] Contact Info) Description 04/17/2025 Refill [facility] MED & PEDS 505 [place], [place] [phone] Irene Barba MD 505 [place] [address] Social History Tobacco Use Types Packs/Day Years [...] Description 06/03/2025 9:45 AM EST Office Visit [facility] MED & PEDS 505 [place] [address] Nohelia Monique MD 505 [place] [address] documented as of this encounter Visit Diagnoses Not on filedocumented in this encounter Additional Health Concerns Assessment Noted Time PHQ-9 Depression Total Score: 7 02/18/20 25 2:52 PM EDT documented as of this encounter Care Teams Acid Pumper Relationship Specialty Start Date End Date Irene Barba MD [address] [place] [address] PCP - General Family Medicine 02/23/21 JACQUELYN Leslie Psychiatrist Mental Health 09/22/23 documented as of this encounter
--- OUTSIDE RECORDS SUMMARY | 2025-06-02 12:05 | XMS_ITS | Encounter Summary ---
Author Organization [facility] Address [address] [place] [address] Phone Care Team Providers Care Automotive Worker Name Role Phone Clarissa Cook MD Primary Care Provider [phone] Encounter Details Date Type Department Care Team (Late st Contact Info) Description 02/01/2016 Ophth Exam [facility] [address] [place] [address] Sang Okeefe MD [email or web address] Social History [...] on filedocumented in this encounter Care Teams Automotive Worker Relationship Specialty Start Date End Date Clarissa Cook MD [address] [place] [address] PCP - General 02/01/16 documented as of this encounter Additional Source Comments The information contained in this document represents components of the legal health record. It is not the complete legal health record.[facility]
--- OUTSIDE RECORDS SUMMARY | 2025-06-02 12:05 | XMS_ITS | Encounter Summary ---
Author Organization [employer] Address [address] [place] [address] 7 [place] [address] Care Team Providers Care Agricultural Chemicals Inspector Name Role Phone Irene Barba MD Primary Care Provider [phone] Reason for Visit * Reason Onset Date Comments Med Refill 05/17/2024 Encounter Details Date Type Department Care Team ([facility] Contact Info) Description 05/17/2024 Refill [facility] MED & PEDS [address] [place], [place] [phone] Irene Barba MD 505 [place] [address] Social History Tobacco Use Types Packs/Day Years [...] Description 06/03/2025 9:45 AM EST Office Visit [facility] MED & PEDS [address] [place] [address] Nohelia Monique MD [address] [place] [address] documented as of this encounter Visit Diagnoses Not on filedocumented in this encounter Additional Health Concerns Assessment Noted Time PHQ-9 Depression Total Score: 0 02/08/20 24 2:46 PM EDT documented as of this encounter Care Teams Agricultural Chemicals Inspector Relationship Specialty Start Date End Date Irene Barba MD [address] [place] [address] PCP - General Family Medicine 02/23/21 JACQUELYN Leslie Psychiatrist Mental Health 09/22/23 documented as of this encounter
--- OUTSIDE RECORDS SUMMARY | 2025-06-02 12:05 | XMS_ITS | Encounter Summary ---
Author Organization [employer] Address [address] [place] [address] Care Team Providers Care Metal Hanging Supervisor Name Role Phone Irene Barba MD Primary Care Provider [phone] Reason for Visit * Reason Onset Date Comments Med Refill 05/26/2025 Encounter Details Date Type Department Care Team ([facility] Contact Info) Description 05/26/2025 Refill [facility] CHC MED & PEDS [address] [place], [place] [phone] Gissell Bearden MD 505 [place] [address] Social History Tobacco Use Types Packs/Day Years [...] Description 06/03/2025 9:45 AM EST Office Visit [facility] MED & PEDS 505 [place] [address] Nohelia Monique MD 505 [place] [address] documented as of this encounter Visit Diagnoses Not on filedocumented in this encounter Additional Health Concerns Assessment Noted Time PHQ-9 Depression Total Score: 7 02/18/20 25 2:52 PM EDT documented as of this encounter Care Teams Metal Hanging Supervisor Relationship Specialty Start Date End Date Irene Barba MD [address] [place] [address] PCP - General Family Medicine 02/23/21 JACQUELYN Leslie Psychiatrist Mental Health 09/22/23 documented as of this encounter
--- OUTSIDE RECORDS SUMMARY | 2025-06-02 12:05 | XMS_ITS | Encounter Summary ---
Author Organization [employer] Address [address] [place] [address] 7 [place] [address] Care Team Providers Care Braze Operator Name Role Phone Irene Barba MD Primary Care Provider [phone] Encounter Details Date Type Department Care Team ([facility] Contact Info) Description 04/23/2025 Results Follow-Up [facility] CHC MED & PEDS [address] [place], [place] [phone] Gissell Bearden MD [address] [place], [place] [phone] XR Ankle 3+ Views Left Social History [...] Description 06/03/2025 9:45 AM EST Office Visit [facility] MED & PEDS [address] [place] [address] Nohelia Monique MD [address] [place] [address] documented as of this encounter Visit Diagnoses Not on filedocumented in this encounter Additional Health Concerns Assessment Noted Time PHQ-9 Depression Total Score: 7 02/18/20 25 2:52 PM EDT documented as of this encounter Care Teams Braze Operator Relationship Specialty Start Date End Date Irene Barba MD [address] [place] [address] PCP - General Family Medicine 02/23/21 JACQUELYN Leslie Psychiatrist Mental Health 09/22/23 documented as of this encounter
--- OUTSIDE RECORDS SUMMARY | 2025-06-02 12:05 | XMS_ITS | Encounter Summary ---
Author Organization [employer] Address [address] [place] [address] 7 [place] [address] Care Team Providers Care Director Of Database Marketing Name Role Phone Irene Barba MD Primary Care Provider [phone] Reason for Visit * Reason Onset Date Comments Med Refill 11/30/2023 Encounter Details Date Type Department Care Team ([facility] st Contact Info) Description 11/30/2023 Refill [facility] MED & PEDS [address] [place], [place] [phone] Irene Barba MD 505 [place] [address] Migraine variant with headache Social History Tobacco [...] Description 06/03/2025 9:45 AM EST Office Visit [facility] MED & PEDS [address] [place] [address] Nohelia Monique MD [address] [place] [address] documented as of this encounter Visit Diagnoses Diagnosis Migraine variant with headache documented in this encounter Additional Health Concerns Assessment Noted Time PHQ-9 Depression Total Score: 2 11/01/19 23 2:22 PM EDT documented as of this encounter Care Teams Director Of Database Marketing Relationship Specialty Start Date End Date Irene Barba MD [address] [place] [address] PCP - General Family Medicine 02/23/21 JACQUELYN Leslie Psychiatrist Mental Health 09/22/23 documented as of this encounter
--- OUTSIDE RECORDS SUMMARY | 2025-06-02 12:05 | XMS_ITS | Encounter Summary ---
Author Organization [employer] Address [address] [facility] 7t [place] [address] Care Team Providers Care Slurry Control Operator Helper Name Role Phone Irene Barba MD Primary Care Provider [phone] Reason for Visit * Reason Onset Date Comments Prior Authorization 05/30/2023 Encounter Details Date Type Department Care Team ([facility] Contact Info) Description 05/30/2023 Telephone [facility] MEDICINE [address] [place] [address] Irene Barba MD [address] [place], [place] [phone] Prior Authorization Social History Tobacco Use Types [...] Tc from patient requesting status of medication [id number] (Fiorinal) 50-325-40 [facility]. documented in this encounter Plan of Treatment Upcoming Encounters Date Type Department Care Team (Late st Contact Info) Description 06/03/2025 9:45 AM EST Office Visit [facility] MED & PEDS [address] [place] [address] Nohelia Monique MD 505 [place] [address] documented as of this encounter Visit Diagnoses Not on filedocumented in this encounter Additional Health Concerns Assessment Noted Time PHQ-9 Depression Total Score: 2 11/01/19 23 2:22 PM EDT documented as of this encounter Care Teams Slurry Control Operator Helper Relationship Specialty Start Date End Date Irene Barba MD [address] [place] [address] PCP - General Family Medicine 02/23/21 JACQUELYN Leslie Psychiatrist Mental Health 09/22/23 documented as of this encounter
--- OUTSIDE RECORDS SUMMARY | 2025-06-02 12:05 | XMS_ITS | Encounter Summary ---
Author Organization [employer] Address [address] [place] [address] 7 [place] [address] Care Team Providers Care Math Interventionist Name Role Phone Irene Barba MD Primary Care Provider [phone] Reason for Visit * Reason Onset Date Comments Med Refill 08/20/2024 Encounter Details Date Type Department Care Team ([facility] Contact Info) Description 08/20/2024 Refill [facility] MED & PEDS [address] [place], [place] [phone] Irene Barba MD [address] [place] [address] Social History Tobacco Use Types Packs/Day Years [...] [facility] [address] [place] [address] Nohelia Monique MD 505 [place] [address] documented as of this encounter Visit Diagnoses Not on filedocumented in this encounter Additional Health Concerns Assessment Noted Time PHQ-9 Depression Total Score: 0 02/08/20 24 2:46 PM EDT documented as of this encounter Care Teams Math Interventionist Relationship Specialty Start Date End Date Irene Barba MD [address] [place] [address] PCP - General Family Medicine 02/23/21 JACQUELYN Leslie Psychiatrist Mental Health 09/22/23 documented as of this encounter
--- OUTSIDE RECORDS SUMMARY | 2025-06-02 12:05 | XMS_ITS | Encounter Summary ---
Author Organization [employer] Address [address] [facility] 7[address] [place] [address] Care Team Providers Care Agent Contract Clerk Name Role Phone Irene Barba MD Primary Care Provider [phone] Encounter Details Date Type Department Care Team (Late st Contact Info) Description 10/08/2024 Orders Only [facility] [address] [place], [place] [phone] Jaya Corrales MD [address] [place], [place] [phone] Social History Tobacco Use Types Packs/Day Years [...] Description 06/03/2025 9:45 AM EST Office Visit [facility] [address] [place] [address] Nohelia Monique MD [address] [place] [address] documented as of this encounter Visit Diagnoses Not on filedocumented in this encounter Additional Health Concerns Assessment Noted Time PHQ-9 Depression Total Score: 0 02/08/20 24 2:46 PM EDT documented as of this encounter Care Teams Agent Contract Clerk Relationship Specialty Start Date End Date Irene Barba MD [address] [place] [id number] PCP - General Family Medicine 02/23/21 JACQUELYN Leslie Psychiatrist Mental Health 09/22/23 documented as of this encounter
--- OUTSIDE RECORDS SUMMARY | 2025-06-02 12:05 | XMS_ITS | Encounter Summary ---
Author Organization [employer] Address [address] [facility] 7 [place] [address] Care Team Providers Care Electrical Assistant Name Role Phone Irene Barba MD Primary Care Provider [phone] Reason for Visit * Reason Comments Med Refill Encounter Details Date Type Department Care Team ([facility] st Contact Info) Description 09/14/2023 Refill [facility] [address] [place], [place] [phone] Irene Barba MD [address] [place], [place] [phone] Neck pain on left side; Migraine variant [...] Description 06/03/2025 9:45 AM EST Office Visit [facility] [address] [place] [address] Nohelia Monique MD [address] [place] [address] documented as of this encounter Visit Diagnoses Diagnosis Neck pain on left side Migraine variant with headache documented in this encounter Additional Health Concerns Assessment Noted Time PHQ-9 Depression Total Score: 2 11/01/19 23 2:22 PM EDT documented as of this encounter Care Teams Electrical Assistant Relationship Specialty Start Date End Date Irene Barba MD [address] [place] [id number] PCP - General Family Medicine 02/23/21 JACQUELYN Leslie Psychiatrist Mental Health 09/22/23 documented as of this encounter
--- OUTSIDE RECORDS SUMMARY | 2025-06-02 12:05 | XMS_ITS | Encounter Summary ---
Author Organization [employer] Address [address] [facility] [address] [place] [address] Care Team Providers Care Bottom Saw Operator Name Role Phone Irene Barba MD Primary Care Provider [phone] Reason for Visit * Reason Onset Date Comments Med Refill 05/26/2025 Encounter Details Date Type Department Care Team ([facility] st Contact Info) Description 05/26/2025 Refill [facility] [address] [place] [address] Irene Barba MD [address] [place], [place] [phone] Social History Tobacco Use Types Packs/Day Years [...] housing situation today? I have leonardoneva glover 01/02/[address] you [...] Description 06/03/2025 9:45 AM EST Office Visit [facility] [address] [place] [address] Nohelia Monique MD [address] [place] [address] documented as of this encounter Visit Diagnoses Not on filedocumented in this encounter Additional Health Concerns Assessment Noted Time PHQ-9 Depression Total Score: 7 02/18/20 25 2:52 PM EDT documented as of this encounter Care Teams Bottom Saw Operator Relationship Specialty Start Date End Date Irene Barba MD [address] [place] [address] PCP - General Family Medicine 02/23/21 JACQUELYN Leslie Psychiatrist Mental Health 09/22/23 documented as of this encounter
--- OUTSIDE RECORDS SUMMARY | 2025-06-02 12:05 | XMS_ITS | Encounter Summary ---
Author Organization [employer] Address [address] [facility] 7t [place] [address] Care Team Providers Care Wholesale Loan Processor Name Role Phone Irene Barba MD Primary Care Provider [phone] Encounter Details Date Type Department Care Team ([facility] st Contact Info) Description 02/19/2024 Telephone [facility] [address] [place] [address] Irene Barba MD [address] [place], [place] [phone] Social History Tobacco Use Types Packs/Day Years [...] Description 06/03/2025 9:45 AM EST Office Visit [facility] [address] [place] [address] Nohelia Monique MD [address] [place] [address] documented as of this encounter Visit Diagnoses Not on filedocumented in this encounter Additional Health Concerns Assessment Noted Time PHQ-9 Depression Total Score: 0 02/08/20 24 2:46 PM EDT documented as of this encounter Care Teams Wholesale Loan Processor Relationship Specialty Start Date End Date Irene Barba MD [address] [place] [id number] PCP - General Family Medicine 02/23/21 JACQUELYN Lselie Psychiatrist Mental Health 09/22/23 documented as of this encounter
--- OUTSIDE RECORDS SUMMARY | 2025-06-02 12:05 | XMS_ITS | Clinical Summary ---
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 Strong contraindication to all sulfa drugs. Sulfacetamide Rash High 02/01/2016 Sulfadiazine 08/11/2022 Medications traZODone (Desyrel) 100 MG tablet Take 100 mg by mouth at bedtime. Rx by psych Active QUEtiapine (SEROquel) 25 MG tablet TAKE 1 TO 2 TABLETS BY MOUTH EVERY NIGHT AT BEDTIME NEEDED FOR SLEEP 024 Active acetaminophen (Tylenol 8 Hour) 650 MG ER tabletIndications :Neck pain on left side TAKE 1 TABLET BY MOUTH EVERY 8 HOURS IF NEEDED FOR MILD PAIN 90 tablet 1 025 Active busPIRone (Buspar) 30 MG tablet Take 1 tablet by mouth 2 times daily. 025 Active verapamil (Calan) 40 MG tablet TAKE 1/2 TABLET BY MOUTH TWICE A DAY 90 tablet 1 025 Active lidocaine-priloca ine (Emla) 2.5-2.5 % cream Apply topically to affected area prn pain 30 g 1 025 Active linaCLOtide (Linzess) 72 MCG capsuleIndication s:Constipation, unspecified constipation type TAKE 1 CAPSULE BY MOUTH BEFORE BREAKFAST. DO NOT CRUSH OR CHEW. 90 capsule Active SUMAtriptan (Imitrex) 100 MG tablet Take 1 tablet (100 mg) by mouth 1 (one) time if needed for migraine. 9 tablet 5 Active butalbital-acetam inophen-caffeine 50-325-40 MG tabletIndications :Headache, unspecified TAKE TWO TABLETS EVERY 8 HOURS NEEDED FOR HEADACHE 20 tablet 1 Active FLUoxetine (PROzac) 20 MG capsule Take 1 capsule by mouth Once per day. Active buPROPion XL (Wellbutrin XL) 300 MG 24 hr tablet Take 1 tablet by mouth Once per day. Active Galcanezumab-gnlm (EMGALITY SC) Inject under the skin. Active fenofibrate (Tricor) 145 MG tablet Take 1 tablet (145 mg) by mouth Once per day. 90 tablet 1 Active Rotigotine 3 MG/24HR patch [address] 3 mg on the skin Once per day. 30 patch 11 Active lidocaine (Lidoderm) 5 % patch APPLY 1 PATCH TOPICALLY EVERY DAY. REMOVE AND DISCARD PATCH WITHIN 12 HOURS OR DIRECTED BY MD. 30 patch 3 Active topiramate (Topamax) 100 MG tabletIndications :Migraine variant with headache TAKE 1 TABLET BY MOUTH AT BEDTIME 90 tablet 1 Active diphenhydrAMINE (Banophen) 25 MG capsuleIndication s:Insomnia, unspecified type TAKE 1 CAPSULE BY MOUTH EVERY NIGHT AT BEDTIME NEEDED 90 capsule 1 Active omeprazole (PriLOSEC) [address] capsule TAKE 1 CAPSULE BY MOUTH BEFORE BREAKFAST. DO NOT CRUSH OR CHEW 90 capsule 1 Active cetirizine (ZyrTEC) 10 MG tabletIndications :Seasonal allergies TAKE 1 TABLET BY MOUTH EVERY DAY 90 tablet 1 Active rosuvastatin (Crestor) 40 MG tablet TAKE 1 TABLET BY MOUTH EVERY DAY 90 tablet 1 Active ezetimibe (Zetia) 10 MG tabletIndications :Hyperlipidemia, unspecified hyperlipidemia type TAKE 1 TABLET BY MOUTH EVERY DAY 90 tablet 1 10/29/2 025 Active senna-docusate sodium (Senokot-S) 8.6-50 MG tabletIndications :Constipation, unspecified constipation type TAKE 1 TABLET BY MOUTH EVERY DAY 90 tablet 1 Active polyethylene glycol, PEG, 3350 (MiraLax) 17 GM/SCOOP powderIndications :Constipation, unspecified constipation type TAKE 17 G BY MOUTH EVERY DAY 527 g 1 Active docusate sodium (Colace) 100 MG capsuleIndication s:Constipation, unspecified constipation type TAKE 1 CAPSULE BY MOUTH TWICE A DAY 180 capsule 1 Active cholecalciferol VITAMIN D (Vitamin D-3) 50 MCG (2000 UT) tablet TAKE 1 TABLET BY MOUTH EVERY DAY 90 tablet 1 Active meclizine (Antivert) 25 MG tabletIndications :Neck pain on left side TAKE 1 TABLET BY MOUTH IN THE MORNING, AT NOON AND BEDTIME IF NEEDED FOR DIZZINESS 30 tablet 1 Active mirabegron ER (Myrbetriq) 50 MG 24 hr tablet TAKE 1 TABLET BY MOUTH EVERY DAY 90 tablet 1 Active hydrOXYzine pamoate (Vistaril) 50 MG capsule TAKE 1 CAPSULE BY MOUTH EVERY 8 HOURS IF NEEDED FOR ITCHING 90 capsule Active fluticasone (Flonase) 50 MCG/ACT nasal sprayIndications: Seasonal allergies SHAKE LIQUID AND USE 2 SPRAYS IN EACH NOSTRIL EVERY DAY NEEDED FOR NASAL CONGESTION 48 g Active ketoconazole (NIZOral) 2 % shampooIndication s:Dandruff in adult APPLY TOPICALLY 2-3 times weekly 120 mL 3 Active sertraline (Zoloft) 25 MG tablet TAKE 1 TABLET BY MOUTH ONCE A DAY WITH 100MG TABLET FOR A TOTAL DOSE OF 125MG 2024 Discontinued buPROPion XL (Wellbutrin XL) 150 MG 24 hr tablet TAKE 1 TABLET BY MOUTH EVERY MORNING WITH FOOD 2024 Discontinued lidocaine (Lidoderm) 5 % patch Apply 1 patch topically Once per day. Remove & discard patch within 12 hours or as directed by . 30 patch 3 2024 Discontinued(R eorder (will not trigger notification to Pharmacy)) topiramate (Topamax) 100 MG tabletIndications :Migraine variant with headache Take 1 tablet (100 mg) by mouth at bedtime. 90 tablet 1 2024 Discontinued(R eorder (will not trigger notification to Pharmacy)) diphenhydrAMINE (Banophen) 25 MG capsuleIndication s:Insomnia, unspecified type TAKE 1 CAPSULE BY MOUTH EVERY NIGHT AT BEDTIME NEEDED 90 capsule 1 2024 Discontinued(R eorder (will not trigger notification to Pharmacy)) omeprazole (PriLOSEC) [address] capsule Take 1 capsule (20 mg) by mouth before breakfast. Do not crush or chew. 90 capsule 1 2024 Discontinued(R eorder (will not trigger notification to Pharmacy)) cetirizine (ZyrTEC) 10 MG tabletIndications :Seasonal allergies Take 1 tablet (10 mg) by mouth Once per day. 90 tablet 1 2024 Discontinued(R eorder (will not trigger notification to Pharmacy)) rosuvastatin (Crestor) 40 MG tablet Take 1 tablet (40 mg) by mouth Once per day. 90 tablet 1 2024 Discontinued(R eorder (will not trigger notification to Pharmacy)) ezetimibe (Zetia) 10 MG tabletIndications :Hyperlipidemia, unspecified hyperlipidemia type Take 1 tablet (10 mg) by mouth Once per day. 90 tablet 1 2024 Discontinued(R eorder (will not trigger notification to Pharmacy)) senna-docusate sodium (Senokot-S) 8.6-50 MG tabletIndications :Constipation, unspecified constipation type Take 1 tablet by mouth Once per day. 90 tablet 1 2024 Discontinued(R eorder (will not trigger notification to Pharmacy)) polyethylene glycol, PEG, 3350 (MiraLax) 17 GM/SCOOP powderIndications :Constipation, unspecified constipation type TAKE 17 G BY MOUTH EVERY DAY 527 g 2024 Discontinued(R eorder (will not trigger notification to Pharmacy)) docusate sodium (Colace) 100 MG capsuleIndication s:Constipation, unspecified constipation type TAKE 1 CAPSULE BY MOUTH TWICE A DAY 180 capsule 1 2024 Discontinued(R eorder (will not trigger notification to Pharmacy)) cholecalciferol VITAMIN D (Vitamin D-3) 50 MCG (2000 UT) tablet TAKE 1 TABLET BY MOUTH EVERY DAY 90 tablet 2024 Discontinued(R eorder (will not trigger notification to Pharmacy)) meclizine (Antivert) 25 MG tabletIndications :Neck pain on left side TAKE 1 TABLET BY MOUTH IN THE MORNING, AT NOON AND BEDTIME IF NEEDED FOR DIZZINESS 30 tablet 1 2024 Discontinued(R eorder (will not trigger notification to Pharmacy)) mirabegron ER (Myrbetriq) 50 MG 24 hr tablet TAKE 1 TABLET BY MOUTH EVERY DAY 90 tablet 1 2024 Discontinued(R eorder (will not trigger notification to Pharmacy)) butalbital-aspiri n-caffeine (Fiorinal) 50-325-40 MG capsuleIndication s:Chronic intractable headache, unspecified headache type TAKE ONE CAPSULE BY MOUTH EVERY 4 HOURS NEEDED. DO NOT EXCEED 6 CAPSULES PER 24 HOURS 20 capsule 2024 Discontinued ketoconazole (NIZOral) 2 % shampooIndication s:Dandruff in adult Apply topically 2 (two) times a week. 120 mL 3 2024 Discontinued(R eorder (will not trigger notification to Pharmacy)) butalbital-acetam inophen-caffeine (Fioricet) 50-300-40 MG capsuleIndication s:Migraine variant with headache TAKE 1 TO 2 CAPSULES BY MOUTH EVERY 6 HOURS NEEDED. NOT TO EXCEED 6 CAPSULES PER 24 HOURS 20 capsule 025 2024 Discontinued hydrOXYzine pamoate (Vistaril) 50 MG capsule TAKE 1 CAPSULE BY MOUTH EVERY 8 HOURS IF NEEDED FOR ITCHING 90 capsule 2024 Discontinued(R eorder (will not trigger notification to Pharmacy)) fluticasone (Flonase) 50 MCG/ACT nasal sprayIndications: Seasonal allergies SHAKE LIQUID AND USE 2 SPRAYS IN EACH NOSTRIL EVERY DAY NEEDED FOR NASAL CONGESTION 48 g 025 2024 Discontinued(R eorder (will not trigger notification to Pharmacy)) sertraline (Zoloft) 100 MG tabletIndications :Primary insomnia Take 1 tablet (100 mg) by mouth Once per day. 90 tablet 1 025 2024 Discontinued Tirzepatide-Weigh t Management (Zepbound) 2.5 MG/0.5ML solution auto-injector Inject 0.5 mL (2.5 mg) under the skin 1 (one) time per week. 2 mL 1 025 2024 Discontinued(T herapy completed) rotigotine (Neupro) 2 MG/24HRIndication s:Restless leg syndrome Place 1 patch on the skin Once per day. 30 patch 11 025 2024 Discontinued(I neffective) ketoconazole (NIZOral) 2 % shampooIndication s:Dandruff in adult APPLY TOPICALLY TWICE A DAY 120 mL 3 025 2024 Discontinued(R eorder (will not trigger [...] F/U Labs: CBC, Comprehensive Metabolic Panel, Lipid Numbness and tingling of both feet 09/22/2023 [...] up in 3 months. Ex-cigarette smoker 10/31/2022 Class 1 obesity due to exces s calories without serious comorbidity with body mass index (BMI) of 30.0 to 30.9 in adult 10/31/2022 Primary insomnia 10/31/2022 Assessment & Plan [...] least 150 min/week of moderate intensity exercise. Other sleep apnea 09/22/2023 05/05/2025 Overweight 09/22/2023 02/17/2025 Assessment & Plan (07/15/2024 11:50 AM EST): Discussed with pt her options for treatment to continue to lose weight. She declined seeing a apparel fashion designer. Pt declined influenza and Covid vaccination. Will reassess at next visit. Follow up in 6 months. Assessment & Plan (03/14/2024 8:20 PM EDT): Pt's current weight is 129 LB. Pt was 154 last visit. Pt has lost 25 lb. Continue treatment plan. Assessment & Plan (11/27/2023 2:58 PM EDT): Discussed calorie deficit, recommended reduction of 20-30% of maintenance calories; apparel fashion designer referral offered. Recommended to decrease soda and [...] recommended reduction of 20-30% of maintenance calories; apparel fashion designer referral offered. Recommended to decrease soda and [...] patient is also advised to contact a rental representative for further evaluation and management of constipation. Future Appointments Date Time Provider Department Center 11/27/2023 10:00 AM Irene Barba MD [facility] Assessment & Plan (09/22/2023 10:00 AM [...] Center 10/23/2023 10:00 AM Irene Barba MD [facility] Breast pain, right 11/25/2022 Assessment & Plan (11/25/2022 10:07 AM EDT): Recommended primrose oil 1000 mg Mass of upper outer quadrant of left [...] Encounters Date Type Department Care Team Description 05/28/2025 Telephone [facility] [address] [place] [address] Irene Barba MD change directions 05/26/2025 Refill [facility] [address] [place] [address] Nohelia Monique MD Migraine variant with headache; Insomnia, unspecified type; Seasonal allergies; Hyperlipidemia, unspecified hyperlipidemia type; Constipation, unspecified constipation type; Neck pain on left side; Dandruff in adult 05/26/2025 Refill [facility] [address], [place] [phone] Irene Barba MD Neck pain on left side; Seasonal allergies; Constipation, unspecified constipation type 05/26/2025 Refill [facility] [address] [place] [address] Irene Barba MD 05/26/2025 Refill [facility] [address] [place] [address] Gissell Bearden MD 05/23/2025 Telephone [facility] [address] [place] [address] Irene Barba MD Med Refill 05/05/2025 10:00 AM EDT Office Visit [facility] [address] [place] [address] Irene Barba MD Restless leg syndrome (Primary Dx); Encounter for immunization 05/05/2025 Travel 05/03/2025 Refill [facility] [address] [place] [address] Irene Barba MD Headache, unspecified 05/02/2025 Telephone [facility] [address] [place] [address] Irene Barba MD Chart Prep 05/02/2025 Refill [facility] [address] [place] [address] Nohelia Monique MD 04/29/2025 Refill [facility] [address] [place] [address] Nohelia Monique MD Restless leg syndrome 04/28/2025 Patient Outreach [facility] [address] [place] [address] Irene Barba MD Pre-visit Planning ([facility] screening completed on 01/02/25 ) 04/23/2025 Results Follow-Up [facility] [address] [place] [address] Gissell Bearden MD XR Ankle 3+ Views Left 04/17/2025 11:15 AM EDT Office Visit [facility] [address] [place] [address] Gissell Bearden MD Acute left ankle pain (Primary Dx) 04/17/2025 Refill [facility] [address] [place] [address] Irene Barba MD 04/17/2025 Refill [facility] [address] [place] [address] Nohelia Monique MD Restless leg syndrome; Constipation, unspecified constipation type 04/17/2025 Travel 04/15/2025 Telephone [facility] [address], [place] [phone] Irene Barba MD Nurse Triage 03/27/2025 2:45 PM EDT Office Visit [facility] [address], [place] [phone] Nohelia Monique MD Migraine variant with headache (Primary Dx) 03/27/2025 Travel 03/26/2025 Telephone [facility] [address] [place], [place] [phone] Irene Barba MD Nurse Triage from Last 3 Months Immunizations Immunization Administration Dates Next Due Hep B, adult 05/05/2025 Influenza Injectable Quadriv alant Preservative Free IIV4 MDCK 06/13/2022 Influenza, IIV3, injectable 06/01/2015,1 08/09/2013,04/26/2013,2011,05/01/2012 Influenza, seasonal, injecta ble, preservative free 05/05/2025,06/01/2015 Pfizer Covid-19 Vaccine 12+ 12/16/2020, Pneumococcal Conjugate [...] Sign Reading Time Taken Comments Blood Pressure 130/74 05/05/2025 9:56 AM EDT Pulse 70 05/05/2025 9:56 AM EDT Temperature 36.3 C (97.4 F) 05/05/2025 9:56 AM EDT Respiratory Rate 20 05/05/2025 9:56 AM EDT Oxygen Saturation 98% 05/05/2025 9:56 AM EDT Inhaled Oxygen Concentration - - Weight 64.2 kg (141 lb 9.6 oz) 05/05/2025 9:56 A M EDT Height 144.8 cm (4' 9 ) 05/05/2025 9:56 AM EDT Body Mass Index 30.64 05/05/2025 9:56 AM EDT Plan of Treatment Upcoming Encounters Date Type Department Care Team (Late st Contact Info) Description 06/03/2025 9:45 AM EST Office Visit [facility] [address] [place] [address] Nohelia Monique MD [address] [place] [address] Health Maintenance Due Date Last Done Comments CT Colonography 1965 Colonoscopy 1965 FIT 1965 Sigmoidoscopy 1965 FOBT 05/25/2024 05/25/2023 Hepatitis B Vaccines (2 of 3 - 19+ 3-dose series) 06/02/2025 05/05/2025 Pap Smear 06/14/2025 06/14/2022 DTaP/Tdap/Td Vaccines (3 - Td or Tdap) 08/05/2025 08/05/2015, 03/24/2014 SDOH Screening 01/02/2026 01/02/2025 Depression Screening 02/17/2026 02/17/2025, 02/18/20 Alcohol/Substance Use Screening 05/05/2026 05/05/2025 COVID-19 Vaccine ( season) 2026 08/02/2021, 12/16/2020, 11/25/2020 Postponed from 03/31/2025 (Patient Refused) Disability Screening 05/05/2026 05/05/2025 Tobacco Screening 05/05/2026 05/05/2025 Colorectal Cancer Screening 05/25/2026 FIT DNA/Cologuard 05/25/2026 05/25/2023 Mammogram 03/20/2027 03/20/2025, 04/1 01/2023, 01/21/2022 Cervical Cancer Screening 06/14/2027 HPV/Cotest 06/14/2027 06/14/2022 Lipid Panel 02/27/2030 02/27/2025, 02/2 09/2023, 05/25/2023, Additional history exists RSV Patients and Patients Aged 60 years or older (1 - 1-dose 75+ series) 2042 HIV Screening Completed 03/29/2021 Hepatitis C Screening Completed 03/29/2021 Zoster Vaccines Completed 08/16/2022, 06/13/2022 Pneumococcal Vaccine: 50+ Years Completed 02/17/2025 Influenza Vaccine Completed 05/05/2025, , 06/01/2015, Additional history exists HIB Vaccines Aged Out No longer eligi [...] Comments XR ANKLE 3+ VIEWS LEFT Routine 12:19 PM EDT Acute left ankle pain BI MAMMOGRAM SCREENING TOMOSYNTHESIS BILATERAL Routine 03/20/2025 11:40 AM EDT Breast cancer screening by mammogram LIPID PANEL, STANDARD Routine 02/27/2025 10:07 AM [...] PM EDT Narrative 04/21/2025 12:30 PM EDT [address] [address] XRay Report Signed Patient: Celia Camejo MR#: [id number] 271 : 1965 Acct:[id number] Age/Sex: 60 / F ADM Date: 04/21/25 Loc: [facility] Attending Dr: Gissell Bearden MD Ordering Physician: Gissell Bearden MD Date of Service: 04/21/25 Procedure(s): XR ankle LT min 3V Accession Number(s): [id number] cc: Gissell Bearden MD; Irene Barba MD [...] 04/21/25 1227 DD/ 1219 TD/TT: 04/21/25 1222 Jumbo Operator: Procedure Note Donotuseinterpreter, Image - 04/21/[address] [address] XRay Report Signed Patient: Vani CamejoR#: [id number] 271 : 1965Acct:[id number] Age/Sex: 60 / FADM Date: 04/21/25 Loc: HO.XRAY Attending Dr: Gissell Bearden MD Ordering Physician: Gissell Bearden MD Date of Service: 04/21/25 Procedure(s): XR ankle LT min 3V Accession Number(s): [id number] cc: Gissell Bearden MD; Irene Barba MD [...] 04/21/25 1227 DD/ 1219 TD/TT: 04/21/25 1222 Jumbo Operator: us Gissell Bearden MD IMG XR PROCEDURES Final Resul t * BI Mammogram Screening Tomosynthesis Bilateral (03/20/2025 11:40 AM EDT) Anatomical Region Laterality Modality Breast Bilateral Mammography 03/20/2025 11:4 0 AM EDT Narrative 03/24/2025 3:46 PM EDT [facility] [address] [place] [address] Mammography Report Signed Patient: Celia Camejo MR#: [id number] 271 : 1965 Acct:[id number] Age/Sex: 60 / F ADM Date: 03/20/25 Loc: MAMMO Attending Dr: Irene Barba MD Ordering Physician: Irene Barba MD Results: 1Nega tive Date of Service: 03/20/25 Follow Up: 1 Year From Orig inal Mammogram Procedure(s): MM tomosynthesis screening BI Accession Number(s): [id number] cc: Irene Barba MD EXAMINATION: MM SCREENING [...] 03/24/25 1543 DD/ 1140 TD/TT: 03/20/25 1150 Jumbo Operator: Procedure Note Donotuseinterpreter, Image - 03/24/2025 [facility] [address] [place] [address] Mammography Report Signed Patient: Eb Camejo#: [id number] 271 : 1965Acct:[id number] Age/Sex: 60 / FADM Date: 03/20/25 Loc: HO.MAMMO Attending Dr: Irene Barba MD Ordering Physician: Irene Barba MDResults: 1Nega tisheila Date of Service: 03/20/25Follow Up: 1 Year From Orig inal Mammogram Procedure(s): MM tomosynthesis screening BI Accession Number(s): [id number] cc: Irene Barba MD EXAMINATION: MM SCREENING [...] 03/24/25 1543 DD/ 1140 TD/TT: 03/20/25 1150 Jumbo Operator: us Irene Barba MD IMG BI PROCEDURES Final Resul t * (ABNORMAL) Lipid Panel, Standard (02/27/2025 10:07 AM EDT) Triglycerides 304(H) <150 mg/dL [facility] Comment:Desirable Triglyceri de: less than 150 mg/dLBorderline High Triglyceride 150-199 mg/dLHigh Triglyceride: 200-499 mg/dLVery High Triglyceride: greater than or equal to 5OO mg/dL Cholesterol 197 <200 mg/dL [facility] Comment:Desirable Cholestero l: less than 200 mg/dLBorderline High Cholesterol: 200-239 mg/dLHigh Cholesterol: greater than 239 mg/dL LDL Cholesterol Calculated 98 <100 mg/dL [facility] Comment:Desirable LDL: less than 100 mg/dLNear Optimal/Above Optimal LDL: 110- 129 mg/dLBorderline High LDL: 130-159 mg/dLHigh LDL: 160-189 mg/dLVery High LDL: greater than or equal to 190 mg/dL HDL Cholesterol 39(L) >40 mg/dL [facility] Comment:Desirable HDL: great er than 40 mg/dL Note: This HDL assay may give artificially low results in patients with liver disease. Blood Venous blood specimen / Unknown 02/27/2025 10:07 AM EDT 02/27/2025 2:05 PM EDT us Irene Barba MD LAB BLOOD ORDERABLES Final Re sult [facility] [address] [place] [address] [phone] * Cologuard?? colon cancer screening (05/25/2023 1:01 AM EDT) Cologuard Result Negative Negative 06/03/20 1:34 AM EDT [facility] (CLIA #:[id number]) Comment: NEGATIVE TEST RESULT. A negative Cologuard [...] screened with both Cologuard and colonoscopy. (Lisa Frausto. et al, N Engl J Med 2014;370(14):8304-4804) The normal value (reference range) for this assay is negative. COLOGUARD RE-SCREENING RECOMMENDATION: Periodic colorectal cancer screening is an important part of preventive healthcare for asymptomatic individuals at average risk for colorectal cancer. Following a negative Cologuard result, the [employer] and U.S. Multi-Society Task Force screening guidelines recommend a Cologuard re-screening interval of 3 years. References: [employer] Guideline for Colorectal Cancer Screening: https://www.cancer.org/cancer/diaax-hlbikq-mopymr/sxczelbww-ilxwyoxhk-iatdjoq/ac s-rec ommendations.html.; Javier DK, Gracie DAVALOS, Hermelinda AVALOS, Colorectal Cancer Screening: Recommendations for Physicians and Patients from the U.S. Multi-Society Task Force on Colorectal Cancer Screening , Am J Gastroenterology 2017; 112:3871-0691. TEST DESCRIPTION: Composite algorithmic analysis of stool [...] (Lisa Hill al, N Engl J Med 2014;370(14):8438-0986.) Cologuard may produce a false negative or false positive result (no colorectal cancer or precancerous polyp present at colonoscopy follow up). A negative Cologuard test result does not guarantee the absence of CRC or advanced adenoma (pre-cancer). The current Cologuard screening interval is every 3 years. ([employer] and U.S. Multi-Society Task Force). Cologuard performance data in a 10,000 patient pivotal study using colonoscopy as the reference method can be accessed at the following location: www.[employer]/results. Additional description of the Cologuard test process, warnings and precautions can be found at www.[email or web address].com. Stool specimen (specimen) 05/25/2023 1:01 AM EDT 05/27/2023 6:48 AM EDT us Irene Barba MD LAB MOLECULAR DIAGNOSTICS ORD ERABLES Final Result [facility] (CLIA #:[id number]) [address] [place] [address], * THINPREP TIS PAP AND HPV mRNA [...] been evaluated with computer assisted technology. CONVERTED [facility]GACY LABS Transportation Attendant: SEE COMMENT [facility]GAC[facility]S Comment: MSM, CT(ASCP) CT screening location: [place] [address] HPV nRNA E6/E7 Not Detected Not Detected CONVERTED [facility]GACY LABS Comment: Methodology: Fitness/Wellness Director-Mediated Amplification This assay detects E6/E7 viral messenger RNA (mRNA) from 14 high-risk HPV types (16,18,31,33,35,39,45,51,52,56,58,59,66,68). Cervical sources are required for HPV testing. If a vaginal source from a patient who has had a total hysterectomy with removal of cervix was submitted, please contact the testing laboratory for alternative testing options. For additional information, please refer to http://education.[employer]/faq/DYW024p7 (This link if provided for information/ educational [...] LEGACY LABS 06/14/2022 9:13 AM EST Trish NAGY LAB PATHOLOGY ORDERABLES Final Result Performing Organization Address [facility] Phone Number CONVERTED LEGACY LABS * HEPATITIS C AB W/REFL TO HCV RNA, QN, PCR (03/29/2021 10:25 AM EDT) HEPATITIS C ANTIBODY NON-REACT ARELY NON-REACT ARELY [facility] INDEX 0.01 <1.00 [facility] Comment: HCV antibody was non-reactive. There is no laboratory evidence of HCV infection. In most cases, no further action is required. However, if recent HCV exposure is suspected, a test for HCV RNA (test code 14594) is suggested. For additional information please refer to http://[employer]/faq/AOB94l8 (This link is being provided for informational/ educational purposes only.) 03/29/2021 10:2 5 AM EDT Irene Barba MD HISTORICAL/NON ORDERABLE LABS Final Result Performing Organization Address [facility]/[employer] Phone Number [facility] [address] * HIV 1/2 ANTIGEN/ANTIBODY,FOURTH GENERATION W/RFL (03/29/2021 10:25 AM EDT) HIV-1/2 ANTIGEN AND ANTIBODIES, 4TH GENERATION W/ REFLEX NON-REACT ARELY NON-REACT ARELY [facility] Comment: HIV-1 antigen and HIV-1/HIV-2 [...] purpose. For additional information please refer to http://education.[employer]/faq/DJN924 (This link is being provided for informational/ educational purposes only.) The performance of this assay has not been clinically validated in patients less than 2 years old. 03/29/2021 10:2 5 AM EDT Irene Barba MD LAB BLOOD ORDERABLES Final Re sult [facility] from Last 3 Months or Most Recently Relevant to Health Maintenance Insurance Care Teams Plow Shaker Relationship Specialty Start Date End Date Irene Barba MD [address] [place] [address] PCP - General Family Medicine 02/23/21 JACQUELYN Leslie Psychiatrist Mental Health 09/22/23
--- OUTSIDE RECORDS SUMMARY | 2025-06-02 12:05 | XMS_ITS | Encounter Summary ---
Author Organization [employer] Address [address] [place] [address] 7 [place] [address] Care Team Providers Care Try Out Person Name Role Phone Irene Barba MD Primary Care Provider [phone] Reason for Visit * Reason Onset Date Comments Med Refill 11/08/2023 Encounter Details Date Type Department Care Team ([facility] st Contact Info) Description 11/08/2023 Refill [facility] MED & PEDS [address] [place], [place] [phone] Irene Barba MD 505 [place] [address] Social History Tobacco Use Types Packs/Day Years [...] Upcoming Encounters Date Type Department Care Team ([facility] st Contact Info) Description 06/03/2025 9:45 AM EST Office Visit [facility] MED & PEDS [address] [place] [address] Nohelia Monique MD 505 [place] [address] documented as of this encounter Visit Diagnoses Not on filedocumented in this encounter Additional Health Concerns Assessment Noted Time PHQ-9 Depression Total Score: 2 11/01/19 23 2:22 PM EDT documented as of this encounter Care Teams Try Out Person Relationship Specialty Start Date End Date Irene Barba MD [address] [place] [address] PCP - General Family Medicine 02/23/21 JACQUELYN Leslie Psychiatrist Mental Health 09/22/23 documented as of this encounter
--- OUTSIDE RECORDS SUMMARY | 2025-06-02 12:06 | XMS_ITS | Encounter Summary ---
Author Organization [employer] Address [address] [place] [address] Care Team Providers Care 1St Pressman Name Role Phone Irene Barba MD Primary Care Provider [phone] Encounter Details Date Type Department Care Team ([facility] Contact Info) Description 10/27/2022 Telephone [facility] MEDICINE [address] [place], [place] [phone] Irene Barba MD 505 [place], [place] [phone] Social History Tobacco Use Types Packs/Day Years [...] Upcoming Encounters Date Type Department Care Team ([facility] Contact Info) Description 06/03/2025 9:45 AM EST Office Visit [facility] MED & PEDS 505 [place], [place] [phone] Nohelia Monique MD [address] [place] [address] documented as of this encounter Visit Diagnoses Not on filedocumented in this encounter Care Teams 1St Pressman Relationship Specialty Start Date End Date Irene Barba MD [address] [place] [address] PCP - General Family Medicine 02/23/21 JACQUELYN Leslie Psychiatrist Mental Health 09/22/23 documented as of this encounter
--- OUTSIDE RECORDS SUMMARY | 2025-06-02 12:06 | XMS_ITS | Encounter Summary ---
Author Organization [employer] Address [address] [place] [address] 7 [place] [address] Care Team Providers Care Opener Verifier Packer Customs Name Role Phone Irene Barba MD Primary Care Provider [phone] Reason for Visit * Reason Onset Date Comments Med Refill 06/02/2024 Encounter Details Date Type Department Care Team ([facility] Contact Info) Description 06/02/2024 Refill [facility] MED & PEDS 505 [place], [place] [phone] Irene Barba MD 505 [place] [address] Social History Tobacco Use Types Packs/Day Years [...] [facility] 505 [place] [address] Nohelia Monique MD 505 [place] [address] documented as of this encounter Visit Diagnoses Not on filedocumented in this encounter Additional Health Concerns Assessment Noted Time PHQ-9 Depression Total Score: 0 02/08/20 24 2:46 PM EDT documented as of this encounter Care Teams Opener Verifier Packer Customs Relationship Specialty Start Date End Date Irene Barba MD [address] [place] [address] PCP - General Family Medicine 02/23/21 JACQUELYN Leslie Psychiatrist Mental Health 09/22/23 documented as of this encounter
--- OUTSIDE RECORDS SUMMARY | 2025-06-02 12:06 | XMS_ITS | Encounter Summary ---
Author Organization [employer] Address [address] [place] [address] Care Team Providers Care Aircraft Engine Cylinder Mechanic Name Role Phone Irene Barba MD Primary Care Provider [phone] Reason for Visit * Reason Onset Date Comments Med Refill 01/25/2025 Encounter Details Date Type Department Care Team ([facility] Contact Info) Description 01/25/2025 Refill [facility] MED & PEDS 505 [place], [place] [phone] Gissell Bearden MD 505 [place] [address] Social History Tobacco Use Types Packs/Day Years [...] Description 06/03/2025 9:45 AM EST Office Visit [facility] MED & PEDS 505 [place] [address] Nohelia Monique MD 505 [place] [address] documented as of this encounter Visit Diagnoses Not on filedocumented in this encounter Additional Health Concerns Assessment Noted Time PHQ-9 Depression Total Score: 0 02/08/20 24 2:46 PM EDT documented as of this encounter Care Teams Aircraft Engine Cylinder Mechanic Relationship Specialty Start Date End Date Irene Barba MD [address] [place] [address] PCP - General Family Medicine 02/23/21 JACQUELYN Leslie Psychiatrist Mental Health 09/22/23 documented as of this encounter
--- OUTSIDE RECORDS SUMMARY | 2025-06-02 12:06 | XMS_ITS | Encounter Summary ---
Author Organization [employer] Address [address] [place] [address] [place], [place] [address] Care Team Providers Care Phytopathology Teacher Name Role Phone Irene Barba MD Primary Care Provider [phone] Reason for Visit * Reason Onset Date Comments ER Follow-up 11/30/2022 Encounter Details Date Type Department Care Team ([facility] Contact Info) Description 11/30/2022 Telephone [facility] CHC MED & PEDS [address] [place], [place] [phone] Irene Barba MD 505 [place] [address] ER Follow-up Social History Tobacco Use Types [...] EDT Second call placed to pt via [employer] weather strip mechanic ID# [id number], no answer. LVM to return call to [facility] nurses. * Telephone Encounter - Neema Garcia RN - 11/30/2022 3:04 PM EDT Return call placed to pt for status check and also to schedule ED f/u appt, no answer. LVM to return call to [facility] nurses. * Telephone Encounter - Yasmeen Marquez - 11/30/2022 1:42 PM EDT Patient calling to report ED visit on 11/29/22 at [facility]. Seen for electric shock. Patient advised will forward to team nurse for follow up. *Patient speaks Kiswahili documented in this encounter Plan of Treatment Upcoming Encounters Date Type Department Care Team (Late st Contact Info) Description 06/03/2025 9:45 AM EST Office Visit [facility] MED & PEDS 505 [place] [address] Nohelia Monique MD 505 [place] [address] documented as of this encounter Visit Diagnoses Not on filedocumented in this encounter Additional Health Concerns Assessment Noted Time PHQ-9 Depression Total Score: 2 11/01/19 23 2:22 PM EDT documented as of this encounter Care Teams Phytopathology Teacher Relationship Specialty Start Date End Date Irene Barba MD [address] [place] [address] PCP - General Family Medicine 02/23/21 JACQUELYN Leslie Psychiatrist Mental Health 09/22/23 documented as of this encounter
--- OUTSIDE RECORDS SUMMARY | 2025-06-02 12:06 | XMS_ITS | Encounter Summary ---
Author Organization [employer] Address [address] [place] [address] Care Team Providers Care Director Experimental Medicine Name Role Phone Irene Barba MD Primary Care Provider [phone] Reason for Visit * Reason Onset Date Comments Med Refill 05/26/2025 Encounter Details Date Type Department Care Team ([facility] Contact Info) Description 05/26/2025 Refill [facility] MED & PEDS 505 [place], [place] [phone] Nohelia Monique MD 505 [place] [address] Migraine variant with headache; Insomnia, unspecified type; Seasonal allergies; Hyperlipidemia, unspecified hyperlipidemia type; Constipation, unspecified constipation type; Neck pain on left side; Dandruff in adult Social History Tobacco Use Types Packs/Day Years [...] Description 06/03/2025 9:45 AM EST Office Visit [facility] CHC MED & PEDS [address] [place] [address] Nohelia Monique MD 505 [place] [address] documented as of this encounter Visit Diagnoses Diagnosis Migraine variant with headache Insomnia, unspecified type Seasonal allergies Allergic rhinitis, cause unspecified Hyperlipidemia, unspecified hyperlipidemia type Constipation, unspecified constipation type Neck pain on left side Dandruff in adult documented in this encounter Additional Health Concerns Assessment Noted Time PHQ-9 Depression Total Score: 7 02/18/20 25 2:52 PM EDT documented as of this encounter Care Teams Director Experimental Medicine Relationship Specialty Start Date End Date Irnee Barba MD [address] [place] [address] PCP - General Family Medicine 02/23/21 JACQUELYN Leslie Psychiatrist Mental Health 09/22/23 documented as of this encounter
--- OUTSIDE RECORDS SUMMARY | 2025-06-02 12:06 | XMS_ITS | Encounter Summary ---
Author Organization [employer] Address [address] [facility] 7 [place] [address] Care Team Providers Care Datastage Consultant Name Role Phone Irene Barba MD Primary Care Provider [phone] Reason for Visit * Reason Onset Date Comments change directions 05/28/2025 Encounter Details Date Type Department Care Team ([facility] st Contact Info) Description 05/28/2025 Telephone [facility] MEDICINE 230 [place] [address] Irene Barba MD [address] [place], [place] [phone] change directions Social History Tobacco Use Types Packs/Day Years [...] encounter Miscellaneous Notes * Telephone Encounter - Elly Lemon RN - 05/28/2025 11:32 AM EDT Called [facility] regarding change in application directions, unable to reach x15 minutes. Medication re-qu ed and sent to provider with amended instructions for clarification with pharmacy. * Telephone Encounter - Ilene Salguero - 05/28/2025 10:16 AM EDT TC from Am with [facility] requesting to change directions on Script of Ketoconazole Shampoo it should be use shampoo 2 or [address] Barba documented in this encounter Plan of Treatment Upcoming Encounters Date Type Department Care Team ([facility] st Contact Info) Description 06/03/2025 9:45 AM EST Office Visit [facility] CHC MED & PEDS 505 [place], [place] [phone] Nohelia Monique MD [address] [place], [place] [phone] documented as of this encounter Visit Diagnoses Diagnosis Dandruff in adult documented in this encounter Additional Health Concerns Assessment Noted Time PHQ-9 Depression Total Score: 7 02/18/20 25 2:52 PM EDT documented as of this encounter Care Teams Datastage Consultant Relationship Specialty Start Date End Date Irene Barba MD [address] [place] [address] PCP - General Family Medicine 02/23/21 JACQUELYN Leslie Psychiatrist Mental Health 09/22/23 documented as of this encounter
--- OUTSIDE RECORDS SUMMARY | 2025-06-02 12:06 | XMS_ITS | Encounter Summary ---
Author Organization [employer] Address [address] [place] [address] 7 [place] [address] Care Team Providers Care Microsoft Exchange Architect Name Role Phone Irene Barba MD Primary Care Provider [phone] Reason for Visit * Reason Comments Med Refill Encounter Details Date Type Department Care Team ([facility] st Contact Info) Description 11/05/2022 Refill [facility]EDS 505 [place], [place] [phone] Irene Barba MD 505 [place], [place] [phone] Primary insomnia Social History Tobacco Use Types [...] Upcoming Encounters Date Type Department Care Team ([facility] st Contact Info) Description 06/03/2025 9:45 AM EST Office Visit [facility] MED & PEDS 505 [place] [address] Nohelia Monique MD 505 [place] [address] documented as of this encounter Visit Diagnoses Diagnosis Primary insomnia Persistent disorder of initiating or maintaining sleep documented in this encounter Additional Health Concerns Assessment Noted Time PHQ-9 Depression Total Score: 2 11/01/19 23 2:22 PM EDT documented as of this encounter Care Teams Microsoft Exchange Architect Relationship Specialty Start Date End Date Irene Barba MD [address] [place] [address] PCP - General Family Medicine 02/23/21 JACQUELYN Leslie Psychiatrist Mental Health 09/22/23 documented as of this encounter
--- OUTSIDE RECORDS SUMMARY | 2025-06-02 12:06 | XMS_ITS | Encounter Summary ---
Author Organization [employer] Address [address] [place] [address] 7 [place] [address] Care Team Providers Care Research Assistant Member Name Role Phone Irene Barba MD Primary Care Provider [phone] Reason for Visit * Reason Onset Date Comments Med Refill 06/02/2024 Encounter Details Date Type Department Care Team ([facility] Contact Info) Description 06/02/[address] [facility] MED & PEDS 505 [place], [place] [phone] Irene Barba MD 505 [place] [address] Social History Tobacco Use Types Packs/Day Years [...] AM EST Office Visit [facility] MED & PEDS 505 [place] [address] Nohelia Monique MD 505 [place] [address] documented as of this encounter Visit Diagnoses Not on filedocumented in this encounter Additional Health Concerns Assessment Noted Time PHQ-9 Depression Total Score: 0 02/08/20 24 2:46 PM EDT documented as of this encounter Care Teams Research Assistant Member Relationship Specialty Start Date End Date Irene Barba MD [address] [place] [address] PCP - General Family Medicine 02/23/21 JACQUELYN Leslie Psychiatrist Mental Health 09/22/23 documented as of this encounter
--- OUTSIDE RECORDS SUMMARY | 2025-06-02 12:06 | XMS_ITS | Encounter Summary ---
Author Organization [employer] Address [address] [facility] 7 [place] [address] Care Team Providers Care Cancellation Clerk Name Role Phone Irene Barba MD Primary Care Provider [phone] Reason for Visit * Reason Onset Date Comments Med Refill 06/19/2024 Encounter Details Date Type Department Care Team ([facility] st Contact Info) Description 06/19/2024 Refill [facility] MEDICINE 230 [place] [address] Irene Barba MD [address] [place], [place] [phone] Social History Tobacco Use Types Packs/Day Years [...] [facility] MED & [facility]EDS 505 [place] [address] Nohelia Monique MD 505 [place] [address] documented as of this encounter Visit Diagnoses Not on filedocumented in this encounter Additional Health Concerns Assessment Noted Time PHQ-9 Depression Total Score: 0 02/08/20 24 2:46 PM EDT documented as of this encounter Care Teams Cancellation Clerk Relationship Specialty Start Date End Date Irene Barba MD [address] [place] [address] PCP - General Family Medicine 02/23/21 JACQUELYN Leslie Psychiatrist Mental Health 09/22/23 documented as of this encounter
--- OUTSIDE RECORDS SUMMARY | 2025-06-02 12:06 | XMS_ITS | Encounter Summary ---
Author Organization [employer] Address [address] [place] [address] 7 [place] [address] Care Team Providers Care Telephone Lineworker Name Role Phone Irene Barba MD Primary Care Provider [phone] Reason for Visit * Reason Onset Date Comments Med Refill 08/13/2024 Encounter Details Date Type Department Care Team ([facility] st Contact Info) Description 08/13/2024 Refill [facility] MED & PEDS 505 [place], [place] [phone] Irene Barba MD 505 [place] [address] Insomnia, unspecified type; Hyperlipidemia, unspecified hyperlipidemia type; [...] Description 06/03/2025 9:45 AM EST Office Visit [facility] MED & PEDS 505 [place] [address] Nohelia Monique MD 505 [place] [address] documented as of this encounter Visit Diagnoses Diagnosis Insomnia, unspecified type Hyperlipidemia, unspecified hyperlipidemia type Restless leg syndrome Restless legs syndrome (RLS) documented in this encounter Additional Health Concerns Assessment Noted Time PHQ-9 Depression Total Score: 0 02/08/20 24 2:46 PM EDT documented as of this encounter Care Teams Telephone Lineworker Relationship Specialty Start Date End Date Irene Barba MD [address] [place] [address] PCP - General Family Medicine 02/23/21 JACQUELYN Leslie Psychiatrist Mental Health 09/22/23 documented as of this encounter
--- OUTSIDE RECORDS SUMMARY | 2025-06-02 12:06 | XMS_ITS | Encounter Summary ---
Author Organization [employer] Address [address] [place] [address] 7 [place] [address] Care Team Providers Care Admin Dir Name Role Phone Irene Barba MD Primary Care Provider [phone] Reason for Visit * Reason Onset Date Comments Med Refill 08/07/2024 Encounter Details Date Type Department Care Team ([facility] st Contact Info) Description 08/07/2024 Refill [facility] MED & PEDS 505 [place], [place] [phone] Irene Barba MD 505 [place] [address] Social History Tobacco Use Types Packs/Day Years [...] 06/03/2025 9:45 AM EST Office Visit [facility] MED & PEDS 505 [place] [address] Nohelia Monique MD 505 [place] [address] documented as of this encounter Visit Diagnoses Not on filedocumented in this encounter Additional Health Concerns Assessment Noted Time PHQ-9 Depression Total Score: 0 02/08/20 24 2:46 PM EDT documented as of this encounter Care Teams Admin Dir Relationship Specialty Start Date End Date Irene Barba MD [address] [place] [address] PCP - General Family Medicine 02/23/21 JACQUELYN Leslie Psychiatrist Mental Health 09/22/23 documented as of this encounter
--- OUTSIDE RECORDS SUMMARY | 2025-06-02 12:06 | XMS_ITS | Encounter Summary ---
Author Organization [employer] Address [address] [place] [address] 7 [place] [address] Care Team Providers Care Crew Supervisor Name Role Phone Irene Barba MD Primary Care Provider [phone] Reason for Visit * Reason Comments Med Refill Encounter Details Date Type Department Care Team ([facility] st Contact Info) Description 11/22/2024 Refill [facility] CH[facility] MED & PEDS 505 [place], [place] [phone] Naa De Guzman, JONAH 505 [place], [place] [phone] Upper respiratory tract infection, unspecified type Social [...] [facility] MED & PEDS [address] [place] [address] Nohelia Monique MD 505 [place] [address] documented as of this encounter Visit Diagnoses Diagnosis Upper respiratory tract infection, unspecified type documented in this encounter Additional Health Concerns Assessment Noted Time PHQ-9 Depression Total Score: 0 02/08/20 24 2:46 PM EDT documented as of this encounter Care Teams Crew Supervisor Relationship Specialty Start Date End Date Irene Barba MD [address] [place] [address] PCP - General Family Medicine 02/23/21 JACQUELYN Leslie Psychiatrist Mental Health 09/22/23 documented as of this encounter
--- OUTSIDE RECORDS SUMMARY | 2025-06-02 12:06 | XMS_ITS | Encounter Summary ---
Author Organization [employer] Address [address] [place] [address] 7 [place] [address] Care Team Providers Care Product Development Carpenter Name Role Phone Irene Barba MD Primary Care Provider [phone] Reason for Visit * Reason Onset Date Comments Med Refill 05/17/2024 Encounter Details Date Type Department Care Team ([facility] Contact Info) Description 05/17/2024 Refill [facility] MED & PEDS 505 [place], [place] [phone] Irene Barba MD 505 [place] [address] Migraine variant with headache Social History Tobacco [...] [facility] MED & PEDS 505 [place] [address] Nohelia Monique MD 505 [place] [address] documented as of this encounter Visit Diagnoses Diagnosis Migraine variant with headache documented in this encounter Additional Health Concerns Assessment Noted Time PHQ-9 Depression Total Score: 0 02/08/20 24 2:46 PM EDT documented as of this encounter Care Teams Product Development Carpenter Relationship Specialty Start Date End Date Irene Barba MD [address] [place] [address] PCP - General Family Medicine 02/23/21 JACQUELYN Leslie Psychiatrist Mental Health 09/22/23 documented as of this encounter
--- OUTSIDE RECORDS SUMMARY | 2025-06-02 12:06 | XMS_ITS | Encounter Summary ---
Author Organization [employer] Address [address] [place] [address] 7 [place] [address] Care Team Providers Care Heel Seat Pounder Name Role Phone Irene Barba MD Primary Care Provider [phone] Reason for Visit * Reason Onset Date Comments Med Refill 08/07/2024 Encounter Details Date Type Department Care Team ([facility] st Contact Info) Description 08/07/2024 Refill [facility] MED & PEDS 505 [place], [place] [phone] Irene Barba MD 505 [place] [address] Social History Tobacco Use Types Packs/Day Years [...] Description 06/03/2025 9:45 AM EST Office Visit [facility] MED & PEDS 505 [place] [address] Nohelia Monique MD 505 [place] [address] documented as of this encounter Visit Diagnoses Not on filedocumented in this encounter Additional Health Concerns Assessment Noted Time PHQ-9 Depression Total Score: 0 02/08/20 24 2:46 PM EDT documented as of this encounter Care Teams Heel Seat Pounder Relationship Specialty Start Date End Date Irene Barba MD [address] [place] [address] PCP - General Family Medicine 02/23/21 JACQUELYN Leslie Psychiatrist Mental Health 09/22/23 documented as of this encounter
--- OUTSIDE RECORDS SUMMARY | 2025-06-02 12:06 | XMS_ITS | Encounter Summary ---
Author Organization [employer] Address [address] [place] [address] 7 [place] [address] Care Team Providers Care Wringer Machine Operator Name Role Phone Irene Barba MD Primary Care Provider [phone] Reason for Visit * Reason Onset Date Comments Med Refill 08/13/2024 Encounter Details Date Type Department Care Team ([facility] st Contact Info) Description 08/13/2024 Refill [facility] MED & PEDS 505 [place], [place] [phone] Irene Barba MD 505 [place] [address] Social History Tobacco Use Types Packs/Day Years [...] [facility] 505 [place] [address] Nohelia Monique MD 505 [place] [address] documented as of this encounter Visit Diagnoses Not on filedocumented in this encounter Additional Health Concerns Assessment Noted Time PHQ-9 Depression Total Score: 0 02/08/20 24 2:46 PM EDT documented as of this encounter Care Teams Wringer Machine Operator Relationship Specialty Start Date End Date Irene Barba MD [address] [place] [address] PCP - General Family Medicine 02/23/21 JACQUELYN Leslie Psychiatrist Mental Health 09/22/23 documented as of this encounter
--- OUTSIDE RECORDS SUMMARY | 2025-06-02 12:06 | XMS_ITS | Encounter Summary ---
Author Organization [employer] Address [address] [facility] 7 [place] [address] Care Team Providers Care Level Designer Name Role Phone Irene Barba MD Primary Care Provider Reason for Visit * Reason Onset Date Comments Med Refill 11/12/2024 Encounter Details Date Type Department Care Team ([facility] st Contact Info) Description 11/12/2024 Refill [facility] [address] [place], [place] [phone] Jaya Corrales MD [address] [place] [address] Migraine variant with headache; Insomnia, unspecified type; [...] [facility] [address] [place] [address] Nohelia Monique MD [address] [place] [address] documented as of this encounter Visit Diagnoses [...] documented as of this encounter Care Teams Level Designer Relationship Specialty Start Date End Date Irene Barba MD [address] [place] [id number] PCP - General Family Medicine 02/23/21 JACQUELYN Leslie Psychiatrist Mental Health 09/22/23 documented as of this encounter
--- OUTSIDE RECORDS SUMMARY | 2025-06-02 12:06 | XMS_ITS | Encounter Summary ---
Author Organization [employer] Address [address] [place] [address] Care Team Providers Care Lumber Buyer Name Role Phone Irene Barba MD Primary Care Provider [phone] Reason for Visit * Reason Onset Date Comments Med Refill 11/12/2024 Encounter Details Date Type Department Care Team ([facility] Contact Info) Description 11/12/2024 Refill [facility] [address] [place], [place] [phone] Gissell Bearden MD [address] [place] [address] Social History Tobacco Use Types Packs/Day Years [...] Description 06/03/2025 9:45 AM EST Office Visit [facility] [address] [place] [address] Nohelia Monique MD [address] [place] [address] documented as of this encounter Visit Diagnoses Not on filedocumented in this encounter Additional Health Concerns Assessment Noted Time PHQ-9 Depression Total Score: 0 02/08/20 24 2:46 PM EDT documented as of this encounter Care Teams Lumber Buyer Relationship Specialty Start Date End Date Irene Barba MD [address] [place] [id number] PCP - General Family Medicine 02/23/21 JACQUELYN Leslie Psychiatrist Mental Health 09/22/23 documented as of this encounter
--- OUTSIDE RECORDS SUMMARY | 2025-06-02 12:06 | XMS_ITS | Encounter Summary ---
Author Organization [employer] Address [address] [facility] 7 [place] [address] Care Team Providers Care Agronomy Supervisor Name Role Phone Irene Barba MD Primary Care Provider [phone] Reason for Visit * Reason Onset Date Comments Med Refill 11/12/2024 Encounter Details Date Type Department Care Team ([facility] st Contact Info) Description 11/12/2024 Refill [facility] [address] [place] [address] Naa De Guzman FNP [address] [place], [place] [phone] Migraine variant with headache Social History Tobacco [...] Description 06/03/2025 9:45 AM EST Office Visit [facility] [address] [place] [address] Nohelia Monique MD [address] [place] [address] documented as of this encounter Visit Diagnoses Diagnosis Migraine variant with headache documented in this encounter Additional Health Concerns Assessment Noted Time PHQ-9 Depression Total Score: 0 02/08/20 24 2:46 PM EDT documented as of this encounter Care Teams Agronomy Supervisor Relationship Specialty Start Date End Date Irene Barba MD [address] [place] [id number] PCP - General Family Medicine 02/23/21 JACQUELYN Leslie Psychiatrist Mental Health 09/22/23 documented as of this encounter
--- OUTSIDE RECORDS SUMMARY | 2025-06-02 12:06 | XMS_ITS | Encounter Summary ---
Author Organization [employer] Address [address] [place] [address] [address] [place] [address] Care Team Providers Care Search Marketing Specialist Name Role Phone Irene Barba MD Primary Care Provider [phone] Reason for Visit * Reason Onset Date Comments Med Refill 05/26/2025 Encounter Details Date Type Department Care Team ([facility] st Contact Info) Description 05/26/2025 Refill [facility] [address] [place], [place] [phone] Irene Barba MD [address] [place], [place] [phone] Neck pain on left side; Seasonal allergies; Constipation, unspecified constipation type Social History Tobacco Use Types Packs/Day [...] Description 06/03/2025 9:45 AM EST Office Visit [facility] [address] [place] [address] Nohelia Monique MD [address] [place] [address] documented as of this encounter Visit Diagnoses Diagnosis Neck pain on left side Seasonal allergies Allergic rhinitis, cause unspecified Constipation, unspecified constipation type documented in this encounter Additional Health Concerns Assessment Noted Time PHQ-9 Depression Total Score: 7 02/18/20 25 2:52 PM EDT documented as of this encounter Care Teams Search Marketing Specialist Relationship Specialty Start Date End Date Irene Barba MD [address] [place] [address] PCP - General Family Medicine 02/23/21 JACQUELYN Leslie Psychiatrist Mental Health 09/22/23 documented as of this encounter
== END 2025-06-02 11:03 | disposition home or self-care (01) ==
LOC: HO.HSM 10:08
PROVIDERS: PCP Family Medicine; Visit Provider Nurse Practitioner
DX: G43.109 Migraine with aura, not intractable, without status migrainosus (principal)
CPT/HCPCS: 99212

== ENCOUNTER → 2025-06-02 10:08 | Outpatient (BNVA) | payer MEDICAID, SELFPAY | PROVIDERS: PCP Family Medicine; Visit Provider Nurse Practitioner | DX: G43.109 Migraine with aura, not intractable, without status migrainosus (principal); M79.18 Myalgia, other site; G25.81 Restless legs syndrome | CPT/HCPCS: 99212 ==